=== PATIENT | male | born 1950 | race Caucasian/White ===

== ENCOUNTER 2023-06-05 13:01 | Emergency (ER) | payer MEDICARE, SELFPAY ==
[2023-06-05 13:02] VITALS: BP 165/91; PULSE 96; RESP 18; TEMP 36.3; O2SAT 93
--- NOTE | 2023-06-05 17:00 | EDS_ITS ---
HPI History of Present Illness HPI Narrative: 73-year-old male in February had right hip replacement. Last several weeks he has had intermittent swelling of his left leg. An ultrasound done showed extensive DVT in his left leg. He was referred to the emergency department from the [facility] outpatient primary care office. He denies any chest pain or shortness of breath. He does have chronic intermittent swelling to his left leg so he and family did not make much of it. Denies any fall or trauma. No prior DVT or PE history. Chief Complaint: Lower Extremity Injury Informant: patient, spouse/S.O. and family Occured/Mechanism Mechanism/Context: No injury and No blunt trauma Onset/Context/Timing Onset: Weeks Context: Gradual Onset Timing: Intermittent Current Severity: Mild Maximum Severity: Mild Associated Symptoms Associated Symptoms: Negative for Parasthesia, Weakness or Loss of Funtion Narrative Narrative: 73-year-old male with left leg DVT. Prior similar symptoms: No Recent Illness/Hospitalization: No PFSH PFSH Medical History DVT (deep venous thrombosis) Home Medications apixaban 5 mg (74 tabs) tablets in a dose pack (Eliquis DVT-PE Treat 30D Start) 5 mg PO BID DVT #74 tabs 06/05/23 [Rx Last Taken Unknown] Allergy/AdvReac Type Severity Reaction Status Date / Time No Known Allergies Allergy Verified 06/05/23 13:02 Social History Smoking Status: Never smoker ROS ROS ED ROS Narrative Denies recent illness. Denies chest pain. Denies shortness of breath. Review of Systems ROS Unobtainable: Denies due to encephalopathy Constitutional Constitutional ED: Denies chills or fever(s) Eyes Eyes: Denies blurry vision Cardiovascular Cardiovascular: Denies chest pain Respiratory/Chest Respiratory/Chest: Denies cough Gastrointestinal Gastrointestinal: Denies abdominal pain Genitourinary Genitourinary ED: Denies dysuria or hematuria Musculoskeletal Musculoskeletal: Denies arthralgias Integumentary Denies abscess or Abrasions Neurologic Neurologic: Denies headache(s) Psychiatric Psychiatric: Denies anxiety or depression Endocrine Endocrinology: Denies polydipsia Hematologic/Lymphatic Hematologic/Lymphatic: Denies easy bleeding Allergic/Immunologic Allergic/Immunologic ED: Denies mouth swelling or tongue swelling EXAM Physical Exam Narrative Exam Narrative: Well-appearing 73-year-old male. Vital signs stable afebrile. Pulse ox 93% on room air no hypoxia. H EENT exam unremarkable. Neck nontender. Lungs clear to auscultation bilaterally. Heart regular rhythm rate about 90. Chest wall and ribs nontender. Abdomen soft nontender. Moving all 4 extremities. 1+ pitting edema left lower extremity. Up to about distal thigh. Right leg nontender no edema. Dorsi and plantarflexion intact. Neurologically patient is awake and alert no focal motor deficits. Answering questions following commands. Const Vital Signs: 06/05/23 13:02 Temperature 97.3 F L Temperature Source Temporal Pulse Rate 96 Respiratory Rate 18 Blood Pressure 165/91 H Blood Pressure Mean 115 Pulse Ox 93 Oxygen Delivery Method Room Air Positive well nourished and well developed; Negative for cachectic, contractures or unkempt General Appearance ED: well developed and NAD; Negative for unkempt, cachectic or contractures Nutritional Appearance: Negative for cachectic HEENT Reports moist mucous membranes normocephalic and atraumatic; Negative for trauma or tenderness Eyes PERRL General Eye ED: Negative for other Neck full ROM and supple Thyroid: Negative for tender Lymph Lymphatic: Negative for other Chest Wall inspection of chest normal and palpation of chest normal Chest: Negative for other Resp normal respiratory effort, no retractions and clear to auscultation bilaterally Effort and Inspection: Negative for pain with movement Auscultation: Negative for rales, rhonchi or wheezes Cardio regular rate, regular rhythm, S1 normal heart sound, S2 normal heart sound and no murmurs Rate: Negative for bradycardia or tachycardic Rhythm: Negative for abnormal rhythm Bruits: Negative for other GI non-tender, non-distended and no masses Inspection: Negative for abdominal distention Auscultation: normoactive bowel sounds Palpation: soft; Negative for tender or guarding Back/Spine no CVA tenderness General Back: Negative for CVA tenderness Cervical Spine: Negative for cervical spine tenderness Thoracic Spine / Upper Back: Negative for thoracic spinal tenderness Lumbar Spine / Lower Back: Negative for lumbar spinal tenderness Extremity full ROM; Negative for normal to inspection Extremity Narrative: Left lower extremity deep venous thrombosis with edema. General Extremety ED: Yes edema; Negative for cyanosis General Extremity: edema; Negative for cyanosis Neuro oriented x3, CN's II-XII intact bilaterally and moves all extremities Sensorium / Orientation: alert, oriented to person, oriented to place and oriented to time; Negative for orientation impaired Motor Exam: strength 5/5 throughout Psych mental status grossly normal Appearance: Negative for unkempt Speech: No other Mood & Affect: Negative for anxious Skin Lesions: no lesions Rashes: no rashes Trauma: Negative for abrasion or laceration MDM MDM MDM Narrative Medical decision making narrative: 73-year-old male with an extensive left lower extremity DVT. Restarted on Eliquis. I spoke to his primary care physician Dr. Garcia. Patient had recent labs including a CBC and chemistry and normal kidney function and blood counts per his PCP I am unable to view the results. We have no old labs on our computer. Family is unable to pull it up on [employer]. He will follow-up with his primary care physician. He was instructed on risks of Eliquis and when to return. History & Record Review Discussion w/independent historian: Patient Lab Data Lab results narrative: I spoke to his primary care physician about his recent outpatient labs through the [facility] system. Discharge Plan Triage Chief Complaint: Lower Extremity Injury ED Provider: Terry Bridges Dx/Rx/DC Orders Clinical Impression: Acute deep vein thrombosis (DVT) of left lower extremity Instructions: ED Deep Vein Thrombosis (DVT) Prescriptions: New Eliquis DVT-PE Treat 30D Start 5 mg (74 tabs) tablets,dose pack 5 mg PO BID Qty: 74 0RF Primary Care Provider: Osiel Garcia Referrals: Osiel Garcia MD [Primary Care Provider] - 1-2 Weeks Dillon Wiggins MD [Med Staff - Active Staff] - As soon as possible Activity Restrictions/Additional Instructions: Blood clot in her left leg. He was started on the blood thinner Eliquis. You take a certain way for the first week then that dose changes. After the first week the dose remained constant. Call and follow-up your primary care physician. More than likely you will be on the blood thinner at least 3 months possibly 6 or even longer. If you start having bleeding from your nose, mouth, in your urine or in your stool you need to be reevaluated. Be very careful not to cut yourself because you bleed more easily. If you would hit your head significantly you would need to be evaluated. Disposition Disposition: Home, Self Care
--- OUTSIDE RECORDS SUMMARY | 2023-06-05 17:32 | XMS RPT_ITS | CCD ---
Author Name Unknown Address [address] [place] [address] Organization [facility] Care Team Providers Care Process Control Engineer Name Role Phone Radha WASHINGTON, Alexis Garcia Primary Care Provider Radha WASHINGTON, Alexis Garcia Primary Care Provider Myron Velarde Unavailable Unavailable ANDRESSA MARX Attending Unavailable ANDRESSA MARX Admitting Unavailable MAGALY DOLL Consulting Unavailable ALEXIS GARCIA Primary Care Unavailab ANDRESSA Higgins Attending Unavailable ANDRESSA MARX Referring Unavailable ALEXIS GARCIA Primary Care Unavailab ANDRESSA Higgins Referring Unavailable ALEXIS GARCIA Primary Care Unavailab ALEXIS Bland Primary Care Unavailab ALEXIS Bland Attending Unavailab ALEXIS Bland Primary Care Unavailab ALEXIS Bland Referring Unavailab ANDRESSA Higgins Attending Unavailable ANDRESSA MARX Referring Unavailable ALEXIS GARCIA Primary Care Unavailab ANDRESSA Higgins Referring Unavailable ALEXIS GARCIA Primary Care Unavailab ALEXIS Bland Primary Care Unavailab ALEXIS Bland Referring Unavailab ANDRESSA Higgins Attending Unavailable ALEXIS GARCIA Primary Care Unavailab ALEXIS Bland Referring Unavailab ANDRESSA Higgins Attending Unavailable ANDRESSA MARX Referring Unavailable ALEXIS GARCIA Primary Care Unavailab ANDRESSA Higgins Referring Unavailable ALEXIS GARCIA Primary Care Unavailab ALEXIS Bland Primary Care Unavailab ALEXIS Bland Attending Unavailab YESSENIA Johnston II Attending Unavailabl ALEXIS Torrez Primary Care Unavailab ALEXIS Bland Primary Care Unavailab ALEXIS Bland Attending Unavailab ALEXIS Bland Primary Care Unavailab ALEXIS Bland Referring Unavailab ALEXIS Bland Primary Care Unavailab MARIA LUISA Hutson Referring Unavailable ALEXIS GARCIA Primary Care Unavailab MARIA LUISA Hutson Referring Unavailable ULISESTORUTH, CANDI Referring Unavailable ALEXIS GARCIA Primary Care Unavailab ANDRESSA Higgins Referring Unavailable VETOVITZ, CANDI Attending Unavailable ALEXIS GARCIA Primary Care Unavailab le Allergies Allergy Classification Reported Allergen(s) Allergy Type Date of Onset Reaction(s) Facility (20 sources) Seasonal allergy; Translations: [SEASONAL ALLERGIES] Allergy to substance 02-03-2011 Cough [facility] Work Phone: Medications Current Medications Medication Drug Class(es) Dates Sig (Normalized) Sig (Original) docusate sodium 100 mg oral capsule (3 sources) Start: 02-21-2023 End: 03-23-2023 take 1 capsule by mouth every twelve hours as needed docusate sodium (COLACE) 100 mg capsule Take 1 capsule by mouth two times a day as needed for constipation. 60 capsule 0 02/21/2023 03/23/2023 Active Completed/Discontinued Medications Medication Drug Class(es) Dates Sig (Normalized) Sig (Original) acetaminophen 500 mg oral tablet (7 sources) Start: 02-21-2023 take 2 tablets by mouth every eight hours as needed acetaminophen (TYLENOL) 500 mg tablet Take 2 tablets by mouth every 8 hours as needed for pain. 90 tablet 0 02/21/2023 Active Problems Active Problems Problem Classification Problem Date Documented Date Episodic/Chronic Blindness and vision defects (3 sources) Bilateral hyperopia of eyes; Translations: [Hypermetropia, bilateral] Episodic Cataract (1 source) Nuclear senile cataract; Translations: [Age-related nuclear cataract, bilateral] Chronic Coagulation and hemorrhagic disorders (3 sources) Platelet count below reference range; Translations: [Thrombocytopenia, unspecified] Onset: 04-29-2023 04-29-2023 Chronic Essential hypertension (20 sources) Essential hypertension; Translations: [Essential (primary) hypertension] Onset: 04-29-2023 Chronic Immunizations and screening for infectious disease (2 sources) Patient encounter status; Translations: [Encounter for immunization] Onset: 04-29-2023 12-17-2022 Episodic Osteoarthritis (13 sources) Primary coxarthrosis, bilateral; Translations: [Bilateral primary osteoarthritis of hip] Onset: 02-20-2023 12-17-2022 Chronic Other and unspecified benign neoplasm (1 source) Benign neoplasm of skin of right lower eyelid; Translations: [Other benign neoplasm of skin of right lower eyelid, including canthus] Episodic Other and unspecified benign neoplasm (1 source) Benign neoplasm of skin of left upper eyelid; Translations: [Other benign neoplasm of skin of left upper eyelid, including canthus] Episodic Other connective tissue disease (7 sources) History of total hip arthroplasty; Translations: [Presence of right artificial hip joint] Onset: 02-21-2023 02-21-2023 Chronic Other connective tissue disease (3 sources) Presence of right artificial hip joint; Translations: [S/P total right hip arthroplasty] Onset: 02-21-2023 Chronic Other ear and sense organ disorders (1 source) Tinnitus, right ear; Translations: [Tinnitus of right ear] Onset: 04-29-2023 Episodic Other non-traumatic joint disorders (4 sources) Hip pain; Translations: [Pain in right hip] Episodic Other nutritional; endocrine; and metabolic disorders (16 sources) Obese class I; Translations: [Obesity, unspecified] Chronic Other nutritional; endocrine; and metabolic disorders (9 sources) Severe obesity; Translations: [Morbid (severe) obesity due to excess calories] 02-11-2023 Chronic Other nutritional; endocrine; and metabolic disorders (1 source) Morbid (severe) obesity due to excess calories; Translations: [Class 2 severe obesity due to excess calories with serious comorbidity and body mass index (BMI) of 35.0 to 35.9 in adult (HCC)] Onset: 02-11-2023 Chronic Other nutritional; endocrine; and metabolic disorders (1 source) Body mass index (BMI) 35.0-35.9, adult; Translations: [Class 2 severe obesity due to excess calories with serious comorbidity and body mass index (BMI) of 35.0 to 35.9 in adult (HCC)] Onset: 02-11-2023 Chronic Other nutritional; endocrine; and metabolic disorders (1 source) Obesity, unspecified; Translations: [Obesity (BMI 30.0-34.9)] Onset: 03-22-2020 Chronic Other screening for suspected conditions (not mental disorders or infectious disease) (20 sources) Raised prostate specific antigen; Translations: [Elevated prostate specific antigen [PSA]] Onset: 11-04-2020 Episodic Otitis media and related conditions (1 source) Acute serous otitis media, right ear; Translations: [Non-recurrent acute serous otitis media of right ear] Onset: 04-29-2023 Episodic Past or Other Problems Problem Classification Problem Date Documented Da te Episodic/Chronic Other non-traumatic joint disorders (1 source) Pain in right hip; Translations: [Hip pain, bilateral] Onset: 10-15-2022 Episodic Other non-traumatic joint disorders (1 source) Pain in left hip; Translations: [Hip pain, bilateral] Onset: 10-15-2022 Episodic Results Test Name Value Interpretation Reference Range Facil ity Vital Signs Date Time Vital Sign Value Performing Clinician Faci lity 12-17-2022 08:38-0400 Body weight 105.6 kg Alexis Garcia MD Work Phone: [facility] 12-17-2022 08:38-0400 Diastolic blood pressure 80 mm[Hg] Alexis Garcia MD Work Phone: [facility] 12-17-2022 08:38-0400 Heart rate 82 /min Alexis Garcia MD Work Phone: [facility] 12-17-2022 08:38-0400 Respiratory rate 16 /min Alexis Garcia MD Work Phone: [facility] 12-17-2022 08:38-0400 SaO2% (BldA) [Mass fraction] 93 % Alexis Garcia MD Work Phone: [facility] 12-17-2022 08:38-0400 Systolic blood pressure 136 mm[Hg] Alexis Garcia MD Work Phone: [facility] 10-15-2022 09:20-0400 Diastolic blood pressure 76 mm[Hg] Alexis Garcia MD Work Phone: [facility] 10-15-2022 09:20-0400 Systolic blood pressure 138 mm[Hg] Alexis Garcia MD Work Phone: [facility] 10-15-2022 08:46-0400 Body weight 104.15 kg Alexis Garcia MD Work Phone: [facility] 10-15-2022 08:46-0400 Heart rate 80 /min Alexis Garcia MD Work Phone: [facility] 10-15-2022 08:46-0400 Respiratory rate 16 /min Alexis Garcia MD Work Phone: [facility] 10-15-2022 08:46-0400 SaO2% (BldA) [Mass fraction] 94 % Alexis Garcia MD Work Phone: [facility] 04-09-2022 08:07-0500 Body height 170.2 cm Alexis Garcia MD Work Phone: [facility] 04-09-2022 08:07-0500 Body weight 105.23 kg Alexis Garcia MD Work Phone: [facility] 04-09-2022 08:07-0500 Diastolic blood pressure 76 mm[Hg] Alexis Garcia MD Work Phone: [facility] 04-09-2022 08:07-0500 Heart rate 91 /min Alexis Garcia MD Work Phone: [facility] 04-09-2022 08:07-0500 Respiratory rate 16 /min Alexis Garcia MD Work Phone: [facility] 04-09-2022 08:07-0500 SaO2% (BldA) [Mass fraction] 93 % Alexis Garcia MD Work Phone: [facility] 04-09-2022 08:07-0500 Systolic blood pressure 132 mm[Hg] Alexis Garcia MD Work Phone: [facility] 09-19-2021 18:22-0400 Diastolic blood pressure 68 mm[Hg] Alexis Garcia MD Work Phone: [facility] 09-19-2021 18:22-0400 Systolic blood pressure 118 mm[Hg] Alexis Garcia MD Work Phone: [facility] 09-19-2021 17:51-0400 Body weight 102.88 kg Alexis Garcia MD Work Phone: [facility] 09-19-2021 17:51-0400 Heart rate 89 /min Alexis Garcia MD Work Phone: [facility] 09-19-2021 17:51-0400 Respiratory rate 18 /min Alexis Garcia MD Work Phone: [facility] 09-19-2021 17:51-0400 SaO2% (BldA) [Mass fraction] 96 % Alexis Garcia MD Work Phone: [facility] Encounters Encounter Date Encounter Type Care Provider Facility Start: 05-20-2023 End: 05-20-2023 ambulatory ANDRESSA MARX Facility:[facility] Start: 05-02-2023 Telephone encounter Osiel Garcia MD Work Phone: [facility] Procedures Date Procedure Procedure Detail Performing Clinician Start: 02-11-2023 History of operative procedure on knee History of bilateral knee replacement Andressa Marx MD Work Phone: Start: 02-11-2023 Antibody screen ANDRESSA MARX Plan of Treatment Date Care Activity Detail Author Start: 06-30-2032 Urine microalbumin profile [facility] Start: 10-12-2029 Urine microalbumin profile DTAP,TDAP,TD (4 - Td or Tdap) [facility] Start: 04-09-2027 Lipid 1996 panel - S tatiana or Plasma Lipid Screening [facility] Start: 04-09-2027 Lipid panel Lipid Screening [facility] Start: 04-09-2027 LIPID SCREEN LIPID SCREEN [facility] Start: 04-29-2026 Diabetes Screening Diabetes Screenin [facility] Start: 02-20-2026 Diabetes Screening Diabetes Screenin g [facility] Start: 02-11-2026 Diabetes Screening Diabetes Screenin g [facility] Start: 10-15-2025 DIABETES SCREEN DIABETES SCREEN [facility] Start: 10-15-2025 Diabetes Screening Diabetes Screenin g [facility] Start: 04-09-2025 DIABETES SCREEN DIABETES SCREEN [facility] Start: 10-12-2024 DIABETES SCREEN DIABETES SCREEN [facility] Start: 10-09-2024 LIPID SCREEN LIPID SCREEN [facility] Start: 04-30-2024 Screening for malign ant neoplasm of colon [facility] Start: 04-29-2024 Annual PCP Team Model Dresser prabhu Disease Visit Annual PCP Team Chronic Disease Visit [facility] Start: 04-29-2024 BP Controlled (<130/80) BP Con trolled (<130/80) [facility] Start: 03-25-2024 DIABETES SCREEN DIABETES SCREEN [facility] Start: 02-12-2024 BP Controlled (<130/80) BP Con trolled (<130/80) [facility] Start: 12-18-2023 ANNUAL PCP TEAM BU[employer]LE [employer]AP[employer]ER PRABHU DISEASE VISIT ANNUAL PCP TEAM CHRONIC DISEASE VISIT [facility] Start: 10-16-2023 ANNUAL PCP TEAM BU[employer]ER PRABHU DISEASE VISIT ANNUAL PCP TEAM CHRONIC DISEASE VISIT [facility] Start: 04-22-2023 COLORECTAL CANCER SCREENING COLORECTAL CANCER SCREENING [facility] Start: 04-22-2023 FECAL OCCULT BLOOD FECAL OCCULT BLOO D [facility] Start: 04-22-2023 Screening for malign ant neoplasm of colon [facility] Start: 04-17-2023 End: 06-17-2023 Prostate specific Ag [Mass/volume] in Serum or Plasma PSA/PROSTSPECAG DIAG Lab Routine Elevated PSA Expected: 04/17/2023, Expires: 06/17/2023 [facility] Work Phone: Immunizations Immunization Date Immunization Notes Care Provider Conchis cheng 04-29-2023 COVID-19 vaccine, ag e 12+ yr, season ([employer]) Alexis Garcia MD Work Phone: [facility] 01-24-2023 influenza (HD-IIV4) vaccine, age 65+ yr, high dose, quadrivalent, PF (FLUZONE HIGH-DOSE) Alexis Garcia MD Work Phone: [facility] Work Phone: 01-24-2023 respiratory syncytia l virus (RSV) vaccine, adjuvanted (AREXVY) Alexis Garcia MD Work Phone: [facility] Work Phone: 12-17-2022 COVID-19 vaccine, ag e 12+ yr, bivalent ([employer]) Alexis Garcia MD Work Phone: [facility] 10-20-2022 zoster vaccine recombinant Alexis Garcia MD Work Phone: [facility] Work Phone: 07-07-2022 zoster vaccine recombinant Alexis Garcia MD Work Phone: [facility] Work Phone: 06-30-2022 tetanus toxoid, redu milvia diphtheria toxoid, and acellular pertussis vaccine, adsorbed Alexis Garcia MD Work Phone: [facility] Work Phone: 02-03-2022 influenza (HD-IIV4) vaccine, age 65+ yr, high dose, quadrivalent, PF (FLUZONE HIGH-DOSE) Alexis Garcia MD Work Phone: [facility] Work Phone: 02-03-2022 influenza virus vaccine, unspecified formulation Andressa Marx MD Work Phone: [facility] 02-04-2021 influenza (HD-IIV4) vaccine, age 65+ yr, high dose, quadrivalent, PF (FLUZONE HIGH-DOSE) Alexis Garcia MD Work Phone: [facility] Work Phone: 09-21-2020 pneumococcal polysaccharide vaccine, 23 valent Alexis Garcia MD Work Phone: [facility] 09-03-2020 COVID-19 vaccine, fu ll dose (MODERNA) Alexis Garcia MD Work Phone: [facility] 08-06-2020 COVID-19 vaccine, fu ll dose (MODERNA) Alexis Garcia MD Work Phone: [facility] 01-30-2020 influenza, high-dose , quadrivalent vaccine (FLUZONE HIGH DOSE QUADRIVALENT) Alexis Garcia MD Work Phone: [facility] 10-13-2019 tetanus toxoid, redu milvia diphtheria toxoid, and acellular pertussis vaccine, adsorbed Alexis Garcia MD Work Phone: [facility] 04-18-2019 influenza, high dose seasonal, preservative-free Alexis Garcia MD Work Phone: [facility] 04-18-2019 pneumococcal conjuga te vaccine, 13 valent Alexis Garcia MD Work Phone: [facility] 03-09-2009 novel [id number], preservative-free, injectable Alexis Garcia MD Work Phone: [facility] 02-07-2009 tetanus toxoid, redu milvia diphtheria toxoid, and acellular pertussis vaccine, adsorbed Alexis Garcia MD Work Phone: [facility] 10-11-2000 diphtheria and tetan us toxoids, adsorbed for pediatric use Alexis Garcia MD Work Phone: [facility] Work Phone: Payers Date Payer Category Payer Medicare [id number] 2022 Unknown [id number] 2021 Unknown [facility] S AND BLUE [facility] ZACK ISBELL O [id number] 2021-Present [phone] [address] [place] [address] [facility] [id number] 2021 Unknown [id number] 2021 Unknown [id number] Social History Date Type Detail Facility Start: 04-09-2022 Tobacco smoking stat [facility] Never smoked tobacco [facility] Start: 09-19-2021 End: 04-29-2023 Alcohol intake Current drinker of alcohol (finding) [facility] Start: 03-22-2020 History SDOH Alcohol Frequency 3 [facility] Start: 03-22-2020 History SDOH Alcohol Std Drinks 1 [facility] Start: 1950 Sex Assigned At Not on file [facility] Start: 04-09-2022 Tobacco use and exposure Smokeless tobacco non-user [facility] Start: 03-30-2022 End: 04-09-2022 Exposure to SARS-CoV-2 (event) Not sure [facility] Start: 10-15-2022 End: 04-29-2023 History of Social function [facility] Work Phone: Start: 10-15-2022 End: 04-29-2023 Tobacco use panel [facility] Work Phone: Adult Depression Screening Assessment 0 [facility] Work Phone: How often to you hav e a drink containing alcohol? 2-4 times a month [facility] Work Phone: How many standard drinks containing alcohol do you have on a typical day? 1 or 2 [facility] Work Phone: How often do you hav e 6 or more drinks on 1 occasion? Never [facility] Work Phone: Medical Equipment Procedure Code Equipment Code Equipment Origin al Text Equipment Identifier Dates Insert Acetabula r 36mm 0d F Hip X3 Trident - [id number] Start: 02-20-2023 Screw Trident Ii 6.5mm 30mm Bone Low Profile Hexagonal Sterile - [id number] Start: 02-20-2023 Clinical Notes 09-19-2021 to 05-20-2023 Telephone Encounter - Ana East LPN - 05/02/2023 11:40 AM ESTTelephone Encounter - Ana East LPN - 05/02/2023 11:38 AM Candi Fregoso PA-C - 04/01/2023 12:39 PM EST Note Date & Type Note Facility 05-20-2023 Note HNO ID: [id number] Author: ANDRESSA MARX MD Service: ? Author Type: Physician Type: Progress Notes Filed: 05/27/2023 13:30 Note Text: Andressa Marx MD Department of Orthopaedics [facility] [address] [place] [address] Dept: [phone] Dept May 20, 2023 CHIEF COMPLAINT: Post Op of the Right Hip and 12 weeks 5 days post op Right GUSTAVO. HPI Patient here for post op visit Right GUSTAVO. Patient denies any pain in that hip but states his left hip has been going out on him and gotten worse since his surgery. Taking Tylenol or Lodine for the pain and helps take the edge off. Patient using a cane to ambulate when outside the house. Continuing home exercises. Patient does have an appointment today after his visit here with the dentist. Has been having pain in one of his bottom right side. He had an antibiotic to take and took it last night. He took 2 tablets yesterday morning and 2 tablets last night. Was told he would only be getting x-rays done and then make a plan to take care of that tooth. with patient today. X-rays done today. ASSESSMENT: Z96.641 History of right hip replacement (primary encounter diagnosis) SUMMARY/PLAN: Doing really great on the right side and is very pleased. The left hip is worsening just with time and as he recovers from the right. We reviewed the risks, benefits, alternatives and potential complications again for now the left hip. He wishes to schedule surgery for the left. Exam: Right hip with healed incision. Good range of motion. Left hip with worsening motion, pain with any attempt at flexion beyond 90 and internal of 10. Imaging: IMPRESSION: Right hip total arthroplasty without evidence of hardware complication. Severe left hip osteoarthritis. Bony demineralization.. Stoker Installer: PSCB Transcribe Date/Time: May 23 2023 9:42A Dictated by : CONSUELO PATRICIO MD This examination was interpreted and the report reviewed and electronically signed by: CONSUELO PATRICIO MD on May 23 2023 9:47AM EST Results-Findings * * *Final Report* * * DATE OF EXAM: May 20 2023 1:16PM [id number] - XR HIP 3V PELV+ AP/LAT RT / PROCEDURE REASON: multiple diagnoses * * * * Physician Interpretation * * * * EXAM(s): XR HIP 3V PELV+ AP/LAT RT EXAM DATE/TIME: 05/20/2023 1:16 PM HISTORY: 73 years old Clinical information: Primary osteoarthritis of right hip Status post total replacement of right hip Follow up after right hip replacement TECHNIQUE: Images: XR HIP 3V PELV+ AP/LAT RT Comparison: Right hip radiograph 03/04/2023 RESULT: Findings: Bony demineralization. No fractures or dislocations are seen. Right hip total arthroplasty with well-seated components. No evidence of hardware complication. Severe left hip osteoarthritis. Low lumbar spondylosis. Supporting Information Below: Medications: Current Outpatient Medications Medication Sig lisinopril (ZESTRIL) 40 mg tablet Take 1 tablet by mouth once daily. hydroCHLOROthiazide 12.5 mg capsule Take 1 capsule by mouth once daily. amoxicillin (AMOXIL) 500 mg capsule 4 capsules 1 hours prior to dental procedure. etodolac (LODINE) 400 mg tablet Take 1 tablet by mouth two times a day. acetaminophen (TYLENOL) 500 mg tablet Take 2 tablets by mouth every 8 hours as needed for pain. HYDROcodone-acetaminophen (NORCO) 5-325 mg per tablet Take 1 tablet by mouth every 6 hours as needed for pain. (Patient not taking: Reported on 04/01/2023) ascorbic acid, vitamin C, (VITAMIN C) 500 mg tablet Take 1 tablet by mouth two times a day with meals for 27 doses. (Patient not taking: Reported on 05/20/2023) aspirin, enteric coated (ASPIRIN, ENTERIC COATED) 81 mg EC tablet Take 1 tablet by mouth two times a day for 28 days. multivit-min/folic/vit K/lycop (MEN'S MULTIVITAMIN ORAL) Take by mouth. (Patient not taking: Reported on 03/04/2023) No current facility-administered medications for this visit. Allergies: Seasonal Allergies Andressa Marx MD [facility] 05-20-2023 Note HNO ID: [id number] Author: KANDY ORANTES RT(R) Service: ? Author Type: Check Writer Type: Progress Notes Filed: 05/20/2023 13:15 Note Text: Radiology Service Progress Note PATIENT NAME: Juan Andrews DATE OF SERVICE: May 20, 2023 TIME: 1:15 PM PATIENT IDENTITY VERIFICATION COMPLETED USING TWO (2) IDENTIFIERS: Name and Date of confirmed by patient verbally. FALL SCREENING: Has the patient had 2 falls in the last year or 1 fall with injury or currently using an Ambulatory Assistive Device (Walker, Cane, Wheelchair, Crutches, etc.)? Yes, Patient High Risk for Falls What interventions were put in place to prevent falls during this visit? Instructed Patient to Call for Help if Needed, Offered Assistance with Transfers/Clothing, Instructed Patient to Remain Seated (Not on Exam Table) Until Exam, and Increased Observations by Caregivers PATIENT GENDER DATA: Male PATIENT RELEVANT IMPLANT DATA REVIEWED: Yes RADIOLOGY DEPARTMENT: General X-ray: Exam(s) Completed: Pelvis X-Ray: Pelvis with Hip Right PERIPHERAL IV DATA: Not applicable SIGNED BY: Kandy Orantes RT(R) May 20, 2023 1:15 PM [facility] 05-02-2023 Miscellaneous Notes Patient notified. Verbalized understanding. ----- Message from Alexis Garcia MD sent at 05/02/2023 11:12 AM EST ----- FOBT negative for blood in stool. Recheck in 1 year to screen for colon cancer. documented in this encounter [facility] 04-30-2023 Miscellaneous Notes Phoned patient's and reviewed results and recommendations with her. She voiced understanding. ----- Message from Alexis Garcia MD sent at 04/30/2023 8:15 AM EST ----- Labs are normal. PSA improved from last check 6 months ago and is now less than 4. Will continue to monitor. No changes to regimen. documented in this encounter [facility] 04-29-2023 Note HNO ID: [id number] Author: Alexis Garcia MD Service: ? Author Type: Physician Type: Progress Notes Filed: 04/29/2023 9:38 AM Note Text: Chief Complaint Patient presents with: Follow Up HPI Juan Andrews is a 73 year old male who presents here today for Above Complaints. HTN: Mr. Andrews indicates that he is feeling well and denies any symptoms referable to elevated blood pressure. Specifically denies headache, chest pain, palpitations, dyspnea, and peripheral edema. Patient denies any side effects of his medication(s) and is compliant with their regimen. He does check BP's away from this office with average BP's in the 120's/70's range. Juan likes to exercise by walking daily. He watches his diet for sodium, low fat and low cholesterol most of the time. Last 3 Encounter BP Readings: Date: BP: 04/29/2023 124/76 02/20/2023 85/56 02/11/2023 112/76 S/p right total hip in February. Healing well without pain. Done with PT. Still using cane for ambulation due to pain in left hip. Would like ears checked today. Complaining of ringing in his right ear for about 5-6 months. Denies vertigo or hearing loss. Past medical history, appointments, medications, allergies reviewed. Previous Medical History PAST MEDICAL HISTORY Diagnosis Date Elevated prostate specific antigen (PSA) 11/04/2020 Hypertension Obesity (BMI 30.0-34.9) Osteoarthritis, hip, bilateral S/P total hip arthroplasty Right Previous Surgical History PAST SURGICAL HISTORY Procedure Laterality Date ADENOIDECTOMY PRIMARY Adenoidectomy ARTHRP KNE CONDYLEANDPLATU MEDIALANDLAT COMPARTMENTS 04/15/2006 Knee replacement, total bilateral ARTHRP KNE CONDYLEANDPLATU MEDIALANDLAT COMPARTMENTS Right 2016 REPAIR UMBILICAL HERNIA 2005 repeat RPR UMBILICAL HRNA 5 YRS/> REDUCIBLE 1999 Hernia repair, umbilical >5yr TONSILLECTOMY PRIMARY/SECONDARY Tonsillectomy TOTAL HIP REPLACEMENT Right 2022 Family History FAMILY HISTORY Problem Relation Age of Onset Diabetes Mother Arthritis Sister knee relacements Arthritis Sister knee replacements Arthritis Sister knee replacements Arthritis Brother hip replacement Hypertension Brother Peripheral Artery Disease Brother No Known Problems Son No Known Problems Son Glaucoma No Family History Detached Retina No Family History Macular Degen No Family History Blindness No Family History Patient Allergies ALLERGIES Allergen Reactions Seasonal Allergies Cough Current Medications Current Outpatient Medications on File Prior to Visit Medication Sig amoxicillin (AMOXIL) 500 mg capsule 4 capsules 1 hours prior to dental procedure. etodolac (LODINE) 400 mg tablet Take 1 tablet by mouth two times a day. acetaminophen (TYLENOL) 500 mg tablet Take 2 tablets by mouth every 8 hours as needed for pain. HYDROcodone-acetaminophen (NORCO) 5-325 mg per tablet Take 1 tablet by mouth every 6 hours as needed for pain. (Patient not taking: Reported on 04/01/2023) ascorbic acid, vitamin C, (VITAMIN C) 500 mg tablet Take 1 tablet by mouth two times a day with meals for 27 doses. aspirin, enteric coated (ASPIRIN, ENTERIC COATED) 81 mg EC tablet Take 1 tablet by mouth two times a day for 28 days. multivit-min/folic/vit K/lycop (MEN'S MULTIVITAMIN ORAL) Take by mouth. (Patient not taking: Reported on 03/04/2023) lisinopril (ZESTRIL) 40 mg tablet Take 1 tablet by mouth once daily. hydroCHLOROthiazide 12.5 mg capsule Take 1 capsule by mouth once daily. No current facility-administered medications on file prior to visit. Social History Social History Tobacco Use Smoking status: Never Smokeless tobacco: Never Vaping Use Vaping Use: Never used Substance Use Topics Alcohol use: Yes Comment: beer weekends 1 to 2 Drug use: Never Review of Symptoms REVIEW OF SYSTEMS GENERAL: No weight loss, malaise or fevers RESPIRATORY: Negative for cough, hemoptysis, wheezing, COPD, dyspnea or shortness of breath CARDIOVASCULAR: Negative for chest pain, leg swelling, hypertension, CHF or palpitations GI: No nausea, vomiting, or diarrhea : No history of dysuria, frequency or incontinence, No difficulty urinating, nocturia > 1 time per night or hematuria SKIN: Negative for lesions, rash, and itching EXAM: BP 124/76 Pulse 82 Resp 16 Wt 108 kg (238 lb) SpO2 94% BMI 36.07 kg/m? General Appearance: Well appearing, alert, in no acute distress, well-hydrated, well nourished.. Skin: Skin color, texture, turgor normal, no suspicious rashes or lesions. Ears: External ears normal, canals clear. Serous effusion noted on right. Left TM normal. Lungs: Lungs clear to auscultation. No wheezing, rhonchi, rales.. Heart: RRR without murmur, gallop, or rubs. No ectopy. Abdomen: Normal abdominal exam, Abdomen soft, non-tender. Bowel sounds normal. No masses, organomegaly. Extremities: No deformities, edema, skin discoloration, clubbing or (more content not included)... [facility] 04-01-2023 Note HNO ID: [id number] Author: Candi Hernandez PA-C Service: ? Author Type: Physician Field Court Researcher Type: Progress Notes Filed: 04/01/2023 12:42 PM Note Text: Ortho Hip Follow Up Note Narrative Referring Provider: Andressa Marx [address] [facility] [address] PCP: Alexis Garcia MD IMPRESSION/PLAN: Impressions indicate: 73 year old s/p Right Total Hip Replacement completed on 02/20/2023. He is doing very well from a right hip standpoint, denies any right hip pain though reports he still is a bit of soreness . The left hip is causing him much more pain now, he is having difficulty ambulating and has had a few incidences where it felt like the left hip gave out . He is very eager to schedule surgery for the left hip. Recent Surgeries this specialty 02/20/2023 (5w, 5d) ARTHROPLASTY REPLACE JOINT TOTAL HIP (Right) Andressa Marx MD - Posted PAIN EVALUATION 04/01/2023 1028 Pain Location: Hip-Right Description: Dull;Aching Duration Amount of Time: -- Post op Frequency: Intermittent Intervention/Comfort measure: Medication IMPRESSION: No complaints or limitations. PLAN: Continue current conservative treatment. Patient Reassurance: Patient reassured and supported. All questions answered. Follow up 1 month, No X-Rays Needed ACTIVE PROBLEM LIST Hypertension Class 2 severe obesity due to excess calories with serious comorbidity and body mass index (BMI) of 35.0 to 35.9 in adult Elevated Prostate Specific Antigen (Psa) History of Bilateral Knee Replacement S/P Total Right Hip Arthroplasty HPI: Juan Andrews presents today for a routine 1st post-op visit. STATUS POST: BMI: There is no height or weight on file to calculate BMI. Post operative recovery was complicated by uneventful/none. Readmission(s) since surgery (90 days post)? No ED Visits AND Hospitalizations - Last 180 days 02/20/23 Andressa Marx MD, ME2E S/P total right hip arthroplasty ..., Admission (Discharged) Patient rates their condition as improving. Does the patient still experience pain? No. Post Op discharge patient location: in home. Functional Assessment is as follows: completed home PT. Functional difficulties: None. Pain Medication: None Current Opioids Analgesic Opioid Hydrocodone Combinations Start End HYDROcodone-acetaminophen (NORCO) 5-325 mg per tablet 03/04/2023 -- Sig - Route: Take 1 tablet by mouth every 6 hours as needed for pain. - ORAL Patient not taking: Reported on 04/01/2023 Earliest Fill Date: 03/04/2023 Analgesic Opioid Hydrocodone and Non-Salicylate Combinations Start End HYDROcodone-acetaminophen (NORCO) 5-325 mg per tablet 03/04/2023 -- Sig - Route: Take 1 tablet by mouth every 6 hours as needed for pain. - ORAL Patient not taking: Reported on 04/01/2023 Earliest Fill Date: 03/04/2023 EXAM: POST OP HIP RIGHT POST-OPERATIVE HIP SKIN: Appropriate postop appearance. Range of Motion: Pain Free Neurovascular Status: Sensation Intact, Moves foot and ankle up AND down, and 2+ dorsalis pedis Gait: Antalgic to the left HIP EXAM: Right: ROM: Extension: Normal Flexion: 110 degrees Internal Rotation: 30 degrees External Rotation: 30 degrees Abduction: 30 degrees Adduction: 30 degrees Strength: Abduction 5/5 and Flexion 5/5 Palpation: No tenderness Neurovascular Status: Sensation Intact and Moves foot and ankle up AND down IMAGING: X-ray Hips: Post op Implants are well fixed. Provider: Candi Hernandez PA-C Completed by: Candi Hernandez PA-C [facility] 04-01-2023 History of Present illness Narrative Images from the original note were not included. Ortho Hip Follow Up Note Narrative Referring Provider: Andressa Marx [address] [facility] [address] PCP: Alexis Garcia MD IMPRESSION/PLAN: Impressions indicate: 73 year old s/p Right Total Hip Replacement completed on 02/20/2023. He is doing very well from a right hip standpoint, denies any right hip pain though reports he still is a bit of soreness . The left hip is causing him much more pain now, he is having difficulty ambulating and has had a few incidences where it felt like the left hip gave out . He is very eager to schedule surgery for the left hip. Recent Surgeries this specialty 02/20/2023 (5w, 5d) ARTHROPLASTY REPLACE JOINT TOTAL HIP (Right) Andressa Marx MD - Posted PAIN EVALUATION 04/01/2023 1028 Pain Location: Hip-Right Description: Dull;Aching Duration Amount of Time: -- Post op Frequency: Intermittent Intervention/Comfort measure: Medication IMPRESSION: No complaints or limitations. PLAN: Continue current conservative treatment. Patient Reassurance: Patient reassured and supported. All questions answered. Follow up 1 month, No X-Rays Needed ACTIVE PROBLEM LIST Hypertension Class 2 severe obesity due to excess calories with serious comorbidity and body mass index (BMI) of 35.0 to 35.9 in adult Elevated Prostate Specific Antigen (Psa) History of Bilateral Knee Replacement S/P Total Right Hip Arthroplasty HPI: Juan Andrews presents today for a routine 1st post-op visit. STATUS POST: BMI: There is no height or weight on file to calculate BMI. Post operative recovery was complicated by uneventful/none. Readmission(s) since surgery (90 days post)? No ED Visits & Hospitalizations - Last 180 days 02/20/23 Andressa Marx MD, ME2E S/P total right hip arthroplasty ..., Admission (Discharged) Patient rates their condition as improving. Does the patient still experience pain? No. Post Op discharge patient location: in home. Functional Assessment is as follows: completed home PT. Functional difficulties: None. Pain Medication: None Current Opioids Analgesic Opioid Hydrocodone Combinations Start End HYDROcodone-acetaminophen (NORCO) 5-325 mg per tablet 03/04/2023 -- Sig - Route: Take 1 tablet by mouth every 6 hours as needed for pain. - ORAL Patient not taking: Reported on 04/01/2023 Earliest Fill Date: 03/04/2023 Analgesic Opioid Hydrocodone and Non-Salicylate Combinations Start End HYDROcodone-acetaminophen (NORCO) 5-325 mg per tablet 03/04/2023 -- Sig - Route: Take 1 tablet by mouth every 6 hours as needed for pain. - ORAL Patient not taking: Reported on 04/01/2023 Earliest Fill Date: 03/04/2023 EXAM: POST OP HIP RIGHT POST-OPERATIVE HIP SKIN: Appropriate postop appearance. Range of Motion: Pain Free Neurovascular Status: Sensation Intact, Moves foot and ankle up & down, and 2+ dorsalis pedis Gait: Antalgic to the left HIP EXAM: Right: ROM: Extension: Normal Flexion: 110 degrees Internal Rotation: 30 degrees External Rotation: 30 degrees Abduction: 30 degrees Adduction: 30 degrees Strength: Abduction 5/5 and Flexion 5/5 Palpation: No tenderness Neurovascular Status: Sensation Intact and Moves foot and ankle up & down IMAGING: X-ray Hips: Post op Implants are well fixed. Provider: Candi Hernandez PA-C Completed by: Candi Hernandez PA-C Patient presents with: Right Hip - Post Op 5 weeks 5 days post op Right GUSTAVO AMB ROOMING INTAKE FLOWSHEET DATA Pain Pain Location: Hip-Right Description: Dull, Aching Duration Amount of Time: (Post op) Frequency: Intermittent Intervention/Comfort measure: Medication Patient using a cane to ambulate at home and walker outside the house. He is having more pain with his left hip than his surgical hip. Taking Tylenol for the pain. Continuing home exercises. with patient today. New X-rays done today. documented in this encounter [facility] 04-01-2023 Note HNO ID: [id number] Author: Stephanie Deleon Ma Service: ? Author Type: ? Type: Progress Notes Filed: 04/01/2023 12:42 PM Note Text: Patient presents with: Right Hip - Post Op 5 weeks 5 days post op Right GUSTAVO AMB ROOMING INTAKE FLOWSHEET DATA Pain Pain Location: Hip-Right Description: Dull, Aching Duration Amount of Time: (Post op) Frequency: Intermittent Intervention/Comfort measure: Medication Patient using a cane to ambulate at home and walker outside the house. He is having more pain with his left hip than his surgical hip. Taking Tylenol for the pain. Continuing home exercises. with patient today. New X-rays done today. [facility] 04-01-2023 Note HNO ID: [id number] Author: Letitia Sesay RT(R) Service: Radiology Author Type: Technologist Type: Progress Notes Filed: 04/01/2023 10:25 AM Note Text: Radiology Service Progress Note PATIENT NAME: Juan Andrews DATE OF SERVICE: April 01, 2023 TIME: 10:08 AM PATIENT IDENTITY VERIFICATION COMPLETED USING TWO (2) IDENTIFIERS: Name and Date of confirmed by patient verbally. FALL SCREENING: Has the patient had 2 falls in the last year or 1 fall with injury or currently using an Ambulatory Assistive Device (Walker, Cane, Wheelchair, Crutches, etc.)? No PATIENT GENDER DATA: Male PATIENT RELEVANT IMPLANT DATA REVIEWED: Yes RADIOLOGY DEPARTMENT: General X-ray: Exam(s) Completed: Pelvis X-Ray: Pelvis with Hip Right PERIPHERAL IV DATA: Not applicable SIGNED BY: RT Hoa(R) April 01, 2023 10:08 AM [facility] 03-04-2023 Note HNO ID: [id number] Author: Candi Hernandez PA-C Service: ? Author Type: Physician Field Court Researcher Type: Progress Notes Filed: 03/04/2023 2:05 PM Note Text: Ortho Hip Follow Up Note Narrative Referring Provider: Andressa Marx [address] [facility] [address] PCP: Alexis Garcia MD IMPRESSION/PLAN: Impressions indicate: 72 year old s/p Right Total Hip Replacement completed on 02/20/2023. He is doing very well, complains of only some minimal pain. Had a little bit of the difficulty with insurance coverage for home PT and home health, fortunately he has a friend who works as a physical therapist who was able to come to his home and assist him. Recent Surgeries this specialty 02/20/2023 (1w, 5d) ARTHROPLASTY REPLACE JOINT TOTAL HIP (Right) Andressa Marx MD - Posted PAIN EVALUATION 03/04/2023 1307 Pain Level: 1 Pain Location: Hip-Right IMPRESSION: At normal post-operative stage of recovery. PLAN: Rest, Ice, Compression, Elevation PRN. Patient Reassurance: Normal post-operative course discussed with patient. Progress appears to be with the normal speed of recovery. Patient reassured and supported. All questions answered. Follow up 1 month X-Rays Needed ACTIVE PROBLEM LIST Hypertension Class 2 severe obesity due to excess calories with serious comorbidity and body mass index (BMI) of 35.0 to 35.9 in adult Elevated Prostate Specific Antigen (Psa) History of Bilateral Knee Replacement S/P Total Right Hip Arthroplasty HPI: Juan Andrews presents today for a routine 1st post-op visit. STATUS POST: BMI: There is no height or weight on file to calculate BMI. Post operative recovery was complicated by uneventful/none. Readmission(s) since surgery (90 days post)? No ED Visits AND Hospitalizations - Last 180 days 02/20/23 Andressa Marx MD, ME2E S/P total right hip arthroplasty ..., Admission (Discharged) Patient rates their condition as improving. Does the patient still experience pain? Onset: activity. Location: Right hip: Other: lateral . Frequency: intermittently. Pain scale: 1. Pain character: ache. Relieving factors: Rest and Pain medication. Aggravating factors: Prolonged standing, Prolonged sitting, Arising from chair, and Walking long distances. Post Op discharge patient location: in home. Functional Assessment is as follows: not started home PT. Functional difficulties: Walking. Pain Medication: Narcotic Current Opioids Analgesic Opioid Hydrocodone Combinations Start End HYDROcodone-acetaminophen (NORCO) 5-325 mg per tablet 03/04/2023 -- Sig - Route: Take 1 tablet by mouth every 6 hours as needed for pain. - ORAL Earliest Fill Date: 03/04/2023 Analgesic Opioid Hydrocodone and Non-Salicylate Combinations Start End HYDROcodone-acetaminophen (NORCO) 5-325 mg per tablet 03/04/2023 -- Sig - Route: Take 1 tablet by mouth every 6 hours as needed for pain. - ORAL Earliest Fill Date: 03/04/2023 EXAM: POST OP HIP RIGHT POST-OPERATIVE HIP SKIN: Appropriate postop appearance, No evidence of erythema, warmth, discharge or drainage, and No evidence of warmth or erythema. Range of Motion: Pain Free Neurovascular Status: Sensation Intact, Moves foot and ankle up AND down, and 2+ dorsalis pedis Gait: Ambulatory Aid: a walker HIP EXAM: Painless passive range of motion in the right hip. IMAGING: X-ray Hips: Post op Implants are well fixed. Provider: Candi Hernandez PA-C Completed by: Candi Hernandez PA-C [facility] 03-04-2023 Note HNO ID: [id number] Author: Kandy Orantes RT(R) Service: ? Author Type: Check Writer Type: Progress Notes Filed: 03/04/2023 1:05 PM Note Text: Radiology Service Progress Note PATIENT NAME: Juan Andrews DATE OF SERVICE: March 04, 2023 TIME: 12:45 PM PATIENT IDENTITY VERIFICATION COMPLETED USING TWO (2) IDENTIFIERS: Name and Date of confirmed by patient verbally. FALL SCREENING: Has the patient had 2 falls in the last year or 1 fall with injury or currently using an Ambulatory Assistive Device (Walker, Cane, Wheelchair, Crutches, etc.)? No PATIENT GENDER DATA: Male PATIENT RELEVANT IMPLANT DATA REVIEWED: Yes RADIOLOGY DEPARTMENT: General X-ray: Exam(s) Completed: Pelvis X-Ray: Pelvis with Hip Right PERIPHERAL IV DATA: Not applicable SIGNED BY: RT Lauren(R) March 04, 2023 12:45 PM [facility] 03-04-2023 History of Present illness Narrative Images from the original note were not included. Ortho Hip Follow Up Note Narrative Referring Provider: Andressa Marx [address] [facility] [address] PCP: Alexis Garcia MD IMPRESSION/PLAN: Impressions indicate: 72 year old s/p Right Total Hip Replacement completed on 02/20/2023. He is doing very well, complains of only some minimal pain. Had a little bit of the difficulty with insurance coverage for home PT and home health, fortunately he has a friend who works as a physical therapist who was able to come to his home and assist him. Recent Surgeries this specialty 02/20/2023 (1w, 5d) ARTHROPLASTY REPLACE JOINT TOTAL HIP (Right) Andressa Marx MD - Posted PAIN EVALUATION 03/04/2023 1307 Pain Level: 1 Pain Location: Hip-Right IMPRESSION: At normal post-operative stage of recovery. PLAN: Rest, Ice, Compression, Elevation PRN. Patient Reassurance: Normal post-operative course discussed with patient. Progress appears to be with the normal speed of recovery. Patient reassured and supported. All questions answered. Follow up 1 month X-Rays Needed ACTIVE PROBLEM LIST Hypertension Class 2 severe obesity due to excess calories with serious comorbidity and body mass index (BMI) of 35.0 to 35.9 in adult Elevated Prostate Specific Antigen (Psa) History of Bilateral Knee Replacement S/P Total Right Hip Arthroplasty HPI: Juan Andrews presents today for a routine 1st post-op visit. STATUS POST: BMI: There is no height or weight on file to calculate BMI. Post operative recovery was complicated by uneventful/none. Readmission(s) since surgery (90 days post)? No ED Visits & Hospitalizations - Last 180 days 02/20/23 Andressa Marx MD, ME2E S/P total right hip arthroplasty ..., Admission (Discharged) Patient rates their condition as improving. Does the patient still experience pain? Onset: activity. Location: Right hip: Other: lateral . Frequency: intermittently. Pain scale: 1. Pain character: ache. Relieving factors: Rest and Pain medication. Aggravating factors: Prolonged standing, Prolonged sitting, Arising from chair, and Walking long distances. Post Op discharge patient location: in home. Functional Assessment is as follows: not started home PT. Functional difficulties: Walking. Pain Medication: Narcotic Current Opioids Analgesic Opioid Hydrocodone Combinations Start End HYDROcodone-acetaminophen (NORCO) 5-325 mg per tablet 03/04/2023 -- Sig - Route: Take 1 tablet by mouth every 6 hours as needed for pain. - ORAL Earliest Fill Date: 03/04/2023 Analgesic Opioid Hydrocodone and Non-Salicylate Combinations Start End HYDROcodone-acetaminophen (NORCO) 5-325 mg per tablet 03/04/2023 -- Sig - Route: Take 1 tablet by mouth every 6 hours as needed for pain. - ORAL Earliest Fill Date: 03/04/2023 EXAM: POST OP HIP RIGHT POST-OPERATIVE HIP SKIN: Appropriate postop appearance, No evidence of erythema, warmth, discharge or drainage, and No evidence of warmth or erythema. Range of Motion: Pain Free Neurovascular Status: Sensation Intact, Moves foot and ankle up & down, and 2+ dorsalis pedis Gait: Ambulatory Aid: a walker HIP EXAM: Painless passive range of motion in the right hip. IMAGING: X-ray Hips: Post op Implants are well fixed. Provider: Candi Hernandez PA-C Completed by: Candi Hernandez PA-C documented in this encounter [facility] 02-23-2023 Note HNO ID: [id number] Author: Note, Interface Service: ? Author Type: ? Type: Progress Notes Filed: 02/23/2023 3:04 AM Note Text: Epic Scheduled Downtime: 02/23/2023 1:00:00 AM to 02/23/2023 1:28:00 AM [facility] 02-21-2023 Note HNO ID: [id number] Author: Magaly Doll MD Service: General Internal Medicine Author Type: Physician Type: Progress Notes Filed: 02/21/2023 10:00 AM Note Text: INPATIENT CONSULT PROGRESS NOTES Patient Name: Juan Andrews DATE of SERVICE: 02/21/23 TIME of SERVICE: 7:20 CONSULTING SERVICE: Medicine Plan of care discussed with: Provider, RN, Patient. INTERVAL HPI: Uneventful night, pain is fairly controlled. Patient seen and examined: Discussed with RN. Vitals/Meds/Labs/U/O reviewed Alert AND Oriented NO nausea, vomiting NO light headedness, NO shortness of breathe Dry oral mucosa CVS - RRR Lungs - Clear to auscultation Abdomen - soft, Nontender, normal bowel sounds LLE - Ankle No edema RLE - Ankle No edema MEDICATIONS: Current Facility-Administered Medications Medication Dose Route Frequency scopolamine - VERIFY patch OTHER q 8 H scopolamine - REMOVE PATCH OTHER ONCE lisinopril 40 mg tab(s) (ZESTRIL) 40 mg ORAL DAILY hydroCHLOROthiazide 12.5 mg tab(s) 12.5 mg ORAL DAILY ondansetron orally disintegrating 4 mg tab(s) (ZOFRAN ODT) 4 mg ORAL q 6 H PRN Or ondansetron (PF) 4 mg injection (ZOFRAN) 4 mg INTRAVENOUS q 6 H PRN magnesium hydroxide 400 mg/5 mL 30 mL (MOM) 30 mL ORAL DAILY PRN [START ON 02/22/2023] bisacodyl EC 10 mg tab(s) (DULCOLAX) 10 mg ORAL DAILY aluminum-magnesium hydroxide-simethicone 200-200-20 mg/5 mL 30 mL 30 mL ORAL q 2 H PRN ferrous sulfate 325 mg tab(s) 325 mg ORAL DAILY wLUNCH ascorbic acid (vitamin C) 500 mg tab(s) (VITAMIN C) 500 mg ORAL BID w MEALS senna 17.2 mg tab(s) (SENOKOT) 17.2 mg ORAL AT BEDTIME aspirin, enteric coated 81 mg tab(s) 81 mg ORAL BID traMADol 50 mg tab(s) (ULTRAM) 50 mg ORAL q 6 H PRN oxyCODONE IR 5-10 mg tab(s) (ROXICODONE) 5-10 mg ORAL q 3 H PRN morphine 2 mg injection 2 mg INTRAVENOUS q 2 H PRN acetaminophen 1,000 mg tab(s) (TYLENOL) 1,000 mg ORAL q 8 H keTORolac 15 mg injection (Toradol) 15 mg INTRAVENOUS q 6 H lactated ringers iv infusion 75 mL/hr INTRAVENOUS CONTINUOUS PHYSICAL EXAM: Patient Vitals for the past 24 hrs: BP Temp Temp src Pulse Resp SpO2 Height Weight 02/21/23 0915 117/67 -- -- -- -- -- -- -- 02/21/23 0858 98/69 -- -- -- -- -- -- -- 02/21/23 0823 122/65 37.5 ?C (99.5 ?F) Oral 89 20 94 % -- -- 02/21/23 0301 102/53 36.5 ?C (97.7 ?F) Oral 79 18 96 % -- -- 02/20/23 2339 107/58 36.6 ?C (97.9 ?F) Oral 79 18 96 % -- -- 02/20/23 1939 125/67 -- Oral 83 18 96 % -- -- 02/20/23 1458 126/69 36.4 ?C (97.5 ?F) Oral 84 16 97 % -- -- 02/20/23 1403 105/65 -- -- 81 -- 94 % -- -- 02/20/23 1302 118/65 36.3 ?C (97.3 ?F) Oral 80 16 96 % -- -- 02/20/23 1234 115/61 36.3 ?C (97.3 ?F) Oral 78 16 92 % -- -- 02/20/23 1201 -- -- -- -- -- -- 173 cm (5' 8.11 ) 102.1 kg (225 lb) 02/20/23 1200 97/59 36.8 ?C (98.2 ?F) Oral 78 16 91 % -- -- 02/20/23 1145 107/60 37 ?C (98.6 ?F) Temporal 79 20 97 % -- -- 02/20/23 1130 102/57 -- -- 78 23 95 % -- -- 02/20/23 1115 98/57 -- -- 79 24 91 % -- -- 02/20/23 1100 100/56 -- -- 82 22 93 % -- -- 02/20/23 1045 97/56 -- -- 84 15 95 % -- -- 02/20/23 1030 92/50 -- -- 71 29 98 % -- -- 02/20/23 1028 (!) 81/49 36.9 ?C (98.4 ?F) Temporal 80 22 98 % -- -- Body mass index is 34.1 kg/m?. DATA: CBC: Recent Labs 02/21/23 0805 WBC 7.47 RBC 3.13* HB 9.8* HCT 28.7* PLT 145* MCV 91.7 MCH 31.3 MPV 9.4 Coags: No results for input(s): PT , INR , APTT in the last 24 hours. CMP: Recent Labs 02/20/23 1213 NA 138 K 4.3 CHLOR 104 CO2 26 BUN 22 CREAT 0.73 GLUC 143* CA 8.4* ANION 8* ASSESSMENT AND PLAN: A. OA S/P - Total Hip Unilateral: right Continue PT/OT Hypertension, stable Possible discharge. Home-going meds reviewed SIGNATURE: Magaly Doll MD [facility] 02-21-2023 Note HNO ID: [id number] Author: Rojelio Winkler PA-C Service: Orthopaedic Surgery Author Type: Physician Field Court Researcher Type: Progress Notes Filed: 02/21/2023 9:15 AM Note Text: POSTOP NOTE ORTHOPAEDIC SURGERY SERVICE DATE: 02/21/2023 SERVICE TIME: 9:14 AM IMPRESSION/PLAN: S/P Procedure(s) (LRB): ARTHROPLASTY REPLACE JOINT TOTAL HIP (Right) on 02/20/2023 Physical Therapy evaluation PWB 40-50 lbs RLE, posterior hip precautions DVT prophylaxis: Intermittent pneumatic compression device (IPCD) and ASA 81 BID Pain control Case Management for discharge planning Plan of care discussed with: Provider, RN, Patient. Patient Active Hospital Problem List: No active hospital problems. POST OPERATIVE COMPLICATIONS: Complicated by uneventful/none SUBJECTIVE: Patient states that they are comfortable Well Controlled hip pain. Denies incisional pain. OBJECTIVE: VITAL SIGNS: BP 98/69 Pulse 89 Temp 37.5 ?C (99.5 ?F) (Oral) Resp 20 Ht 173 cm (5' 8.11 ) Wt 102.1 kg (225 lb) SpO2 94% BMI 34.10 kg/m? INTAKE AND OUTPUT: Intake/Output Summary (Last 24 hours) at 02/21/2023 0914 Last data filed at 02/21/2023 0546 Gross per 24 hour Intake 5368 ml Output 1225 ml Net 4143 ml LABS: Hemoglobin Date Value Ref Range Status 02/21/2023 9.8 (L) 13.0 - 17.0 g/dL Final 02/20/2023 11.7 (L) 13.0 - 17.0 g/dL Final Hematocrit Date Value Ref Range Status 02/21/2023 28.7 (L) 39.0 - 51.0 % Final 02/11/2023 45.3 39.0 - 51.0 % Final Platelet Count Date Value Ref Range Status 02/21/2023 145 (L) 150 - 400 k/uL Final 02/11/2023 210 150 - 400 k/uL Final WBC Date Value Ref Range Status 02/21/2023 7.47 3.70 - 11.00 k/uL Final 02/11/2023 7.99 3.70 - 11.00 k/uL Final Creatinine Date Value Ref Range Status 02/20/2023 0.73 0.73 - 1.22 mg/dL Final 02/11/2023 0.69 (L) 0.73 - 1.22 mg/dL Final Potassium Date Value Ref Range Status 02/20/2023 4.3 3.7 - 5.1 mmol/L Final 02/11/2023 4.3 3.7 - 5.1 mmol/L Final VTE Prophylaxis: Active VTE Risk Category Order: 02/20/23 1200 VTE RISK CATEGORY: SURGICAL HIGH RISK (KS,PR) Active VTE Medication Orders: Anticoagulant AND Antiplatelet Medications (From admission, onward) Start Dose Route Frequency Last Action Ordered Stop 02/21/23 0900 aspirin, enteric coated 81 mg tab(s) (Surgical Risk Categories) 81 mg ORAL 2 TIMES DAILY Ordered 02/20/23 1158 -- Active VTE Prophylaxis Orders: 02/20/23 1200 PNEUMATIC COMPRESSION STOCKINGS ([place]) 02/20/23 1200 ACTIVITY - MOBILIZE PATIENT ([place]) 02/20/23 1200 ACTIVITY - MOB[place] ([place] 02/20/23 1200 ACTIVITY - MOBILIZE PATIENT ([place]) PHYSICAL EXAMINATION: Right Lower Extremity: Dorsalis pedis pulses palpable. Posterior tibial pulses palpable. Dorsi flexion 5/5. Plantar flexion 5/5. Extensor hallucis extension: 5/5. Sensory intact to light touch L1-S1. Dressing clean, dry, and intact. Surgical site no drainage and Silverlon intact. Thigh is not swollen, calf is not tender, no signs of DVT or infection Problem Review and Assessment: Skin and Abdominal Wall: Patient monitored, no new events overnight Cardiovascular and Vascular: Patient monitored, no new events overnight Respiratory: Patient monitored, no new events overnight Endocrine and Metabolic: Patient monitored, no new events overnight Gastrointestinal: Patient monitored, no new events overnight Genitourinary and Nephrology: Patient monitored, no new events overnight Behavioral, Cerebrovascular and Nervous: Patient monitored, no new events overnight Infectious: Patient monitored, no new events overnight DATA: Diagnostic tests reviewed for today's visit: Most recent labs and imaging results. SIGNATURE: Rojelio Winkler PA-C PATIENT NAME: Juan Andrews DATE: February 21, 2023 TIME: 9:14 AM The patient has undergone major orthopedic surgery and participating in therapy. Pain cannot be managed within an average of 30 MED per day. Patient requiring average of higher than 30 MED per day in order to control pain and allow patient to actively and safely participate in therapy and this is the lowest dose consistent with patient's medical condition. Non-narcotic medication options have been discussed. In addition, the patient has been advised of the benefits and risks of the opioid (including the potential for addiction). Patient demonstrated understanding of risks versus benefits. [facility] 02-20-2023 Note HNO ID: [id number] Author: Adrienne Gaxiola RN Service: ? Author Type: Registered Nurse Type: Nursing Progress Note Filed: 02/20/2023 11:44 AM Note Text: Post operative xray complete. Patient continues to deny pain. [facility] 02-20-2023 Note HNO ID: [id number] Author: Adrienne Gaxiola RN Service: ? Author Type: Registered Nurse Type: Nursing Progress Note Filed: 02/20/2023 11:04 AM Note Text: medical technologist at bedside for post operative hemoglobin. Patient resting without complaint. [facility] 02-20-2023 Note HNO ID: [id number] Author: Adrienne Gaxiola RN Service: ? Author Type: Registered Nurse Type: Nursing Progress Note Filed: 02/20/2023 10:55 AM Note Text: Patient able to take ice chips without difficulty. Patient denies pain. 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 Staffing SRNA: Corbin Sams SRNA Performed by: IRMA Indications and Patient Condition Indications for airway management: anesthesia Preoxygenated: yes anesthesia circuit Patient position: sniffing Method: asleep Cricoid Pressure: Yes Manual In-Line Stabilization: No Difficult Mask: No Airway Accessory: oral airway Final Airway Details Final airway type: endotracheal airway Final Endotracheal Airway: ETT Cuffed: yes Successful intubation technique: video laryngoscopy Devices used: intubating stylet and Marvin Endotracheal tube insertion site: oral Blade: Cliff Blade size: #4 ETT size (mm): 7.5 Measured from: lips Measurement (cm): 22 Placement verified by: chest auscultation and capnometry Cormack-Lehane Classification: grade IIb - view of arytenoids or posterior of glottis only Number of attempts at approach: 1 Failed airway: no Unrecognized esophageal intubation: no Airway not difficult SIGNATURE: IRMA Rosas PATIENT NAME: Juan Andrews DATE: February 20, 2023 TIME: 7:57 AM CSN: [id number] [facility] 02-14-2023 Miscellaneous Notes Paperwork completed. [facility] Confirmation received. Copy sent for scanning. Copy mailed to the patient's home. Type of form: FMLA Form received via walk in When form is completed, Fax form to employer Form has been forwarded to nurse box for completion. Shirley Hein MA documented in this encounter [facility] 02-05-2023 Miscellaneous Notes TOTAL JOINT COMPLETE CARE PROGRAM PRE-OPERATIVE TEACHING Service Date: 02/05/2023 Service Time: 10:46 AM Date of : 1950 Gender: male Date of Surgery: 02/20/23 Procedure: Right Total Hip Replacement Complete Care Program was discussed with the patient: Pointer Machine Operator Identification: Patient identified a respiratory care instructor to help when discharged to home: and son lives next to them Home Environment: Home Layout: Ranch, Entry Steps: 1, Bedroom Location: 1st floor, Bathroom Location: 1st floor, and walk in shower. Pt owns walker and cane, shower chair. Discussed with patient importance of attending joint education class and provided date and times of class: YES declined Patient received Joint Education Binder: Yes Patient plans discharge home with [facility]. SIGNATURE: RODRIGO Reyes PATIENT NAME: Juan Andrews DATE: February 05, 2023 TIME: 10:11 AM documented in this encounter [facility] 02-01-2023 Miscellaneous Notes Surgery has been scheduled as requested. Surgical request completed for right GUSTAVO at [facility] on 02/20/2023. Post op appointments have been scheduled and mailed to the patient. Email sent to [employer] rep. documented in this encounter [facility] 01-31-2023 Note HNO ID: [id number] Author: Andressa Marx MD Service: ? Author Type: Physician Type: Progress Notes Filed: 02/19/2023 1:21 PM Note Text: CONSULT ORTHOPAEDIC: HIP PRIMARY CARE PHYSICIAN: Alexis Garcia MD REFERRING PROVIDER: Andressa Marx [address] [facility] [id number] ASSESSMENT AND PLAN Impression: Right Hip Severe Degenerative Osteoarthritis, Primary Diagnoses: (M16.0) Primary osteoarthritis of both hips (primary encounter diagnosis) (M25.551, M25.552, G89.29) Chronic pain of both hips Based upon the evaluation today and after discussions with Juan Andrews, Juan Andrews has significant, worsening pain at the hip. This pain is increased with activity and weight bearing, and interferes with activities of daily living. These symptoms have continued despite a number of non-surgical measures, including a trial of oral pain medication (for at least 12 weeks). At this point, the patient will not benefit from further PT due to the severity of their condition. The patient's physical examination is consistent with limitations in range of motion, pain with passive range of motion, and an antalgic gait. These examination findings are corroborated by imaging findings of joint space narrowing, periarticular osteophyte formation, and subchondral sclerosis. The patient has been treated by the practice and all reasonable treatments have failed to control the disease, which causes significant pain and limits activities of daily living. The patient has failed conservative treatment and joint replacement surgery was discussed and agreed upon by both provider and patient. The patient has elected to proceed with surgical management to improve function and relieve pain refractory to non-surgical measures: Right Primary Total Hip Arthroplasty as evidenced by six months of unsuccessful non-operative treatment as outlined in the HPI below and progressive symptoms. Progressive symptoms include: Pain worsened by weight bearing Pain effecting living situation Unable to ambulate 2 blocks without significant pain and dysfunction. Surgery Details Date and Location: At [facility] on 02/20/2023. Implants: [place] Robotic: No Predicted LOS: 2 days (Inpatient candidate) The risks and benefits of surgery were discussed at length including but not limited to the risks of infection, bleeding, nerve or blood vessel injury, deep venous thrombosis, pulmonary embolism, , paralysis, hip dislocation, leg length discrepancy (including requiring use of permanent shoe lift), bone fracture, component loosening or failure requiring re-operation or amputation. Informed consent was obtained and the patient was scheduled. We also discussed fixation strategies including cement and cementless fixation and modern alternative bearings including metal or ceramic with cross-linked polyethylene, [id number] and [id number] as well as advantages and disadvantages of each. We also discussed less invasive surgical approaches and reported benefits and risks of these approaches. The patient has been ordered: No orders found for this visit on 01/31/23. No orders placed today. CONSULTS: Patient does not require consults for optimization at this time. Total Joint Arthroplasty: Risk Calculator Juan Andrews has a 12.55% chance of NOT returning home at discharge for a Primary total Hip replacement. Juan's estimated Length of Stay is 2 days (Inpatient candidate). Juan's 30 day chance of readmission is 2.65%. Readmission Probability 2.65 % (within 30 days following surgery) Estimated LOS 2 days Discharge Disposition Probability D/C to Home 87.45 % D/C to SNF 12.55 % These calculations are based on the following factors: - 72 years of age - sex is male - BMI of 36.46 kg/m2 - NarxCare score of 0 - 0 hospitalizations in the last 12 months - no history of heart disease - no history of diabetes - no history of COPD - no history of anemia - preoperative ambulation: impaired community distances - 2 step(s) to enter home - bed location is on the first floor - bath location is on the first floor - caregiver is consistent - home is not more than 150 miles away - PROMIS-10 Mental Health T score not available - Marital status: Risk Factors for Total Hip Arthroplasty (GUSTAVO) Major Risk Factors Obesity Moderate Risk High: BMI > 40 Moderate: BMI 30-40 Normal: BMI < 30 Diabetes normal High: A1C > 8 Moderate: A1C 7-8 Normal: A1C < 7 Smoking normal High: Current smoker Normal: Non smoker Narcotics Use normal High:NarxCare >=300 Moderate: 100-299 Normal: 0-99 Depression normal High: PHQ-9 >14 Moderate: PHQ-9 5-14 Normal: PHQ-9 < 5 Area Deprivation Index (JOHNNA) Moderate Risk High: JOHNNA Score > 75 Moderate: JOHNNA 50-75 Normal: JOHNNA < 50 Obesity: weight management recommended BMI Readings from Last 3 Encounters: 12/17/22 : 36.46 kg/m? 10/15/22 : 35.96 kg/m (more content not included)... [facility] 01-31-2023 History of Present illness Narrative CONSULT ORTHOPAEDIC: HIP PRIMARY CARE PHYSICIAN: Alexis Garcia MD REFERRING PROVIDER: Andressa Marx [address] [facility] [id number] ASSESSMENT & PLAN Impression: Right Hip Severe Degenerative Osteoarthritis, Primary Diagnoses: (M16.0) Primary osteoarthritis of both hips (primary encounter diagnosis) (M25.551, M25.552, G89.29) Chronic pain of both hips Based upon the evaluation today and after discussions with Juan Andrews, Juan Andrews has significant, worsening pain at the hip. This pain is increased with activity and weight bearing, and interferes with activities of daily living. These symptoms have continued despite a number of non-surgical measures, including a trial of oral pain medication (for at least 12 weeks). At this point, the patient will not benefit from further PT due to the severity of their condition. The patient's physical examination is consistent with limitations in range of motion, pain with passive range of motion, and an antalgic gait. These examination findings are corroborated by imaging findings of joint space narrowing, periarticular osteophyte formation, and subchondral sclerosis. The patient has been treated by the practice and all reasonable treatments have failed to control the disease, which causes significant pain and limits activities of daily living. The patient has failed conservative treatment and joint replacement surgery was discussed and agreed upon by both provider and patient. The patient has elected to proceed with surgical management to improve function and relieve pain refractory to non-surgical measures: Right Primary Total Hip Arthroplasty as evidenced by six months of unsuccessful non-operative treatment as outlined in the HPI below and progressive symptoms. Progressive symptoms include: Pain worsened by weight bearing Pain effecting living situation Unable to ambulate 2 blocks without significant pain and dysfunction. Surgery Details Date and Location: At [facility] on 02/20/2023. Implants: [place] Robotic: No Predicted LOS: 2 days (Inpatient candidate) The risks and benefits of surgery were discussed at length including but not limited to the risks of infection, bleeding, nerve or blood vessel injury, deep venous thrombosis, pulmonary embolism, , paralysis, hip dislocation, leg length discrepancy (including requiring use of permanent shoe lift), bone fracture, component loosening or failure requiring re-operation or amputation. Informed consent was obtained and the patient was scheduled. We also discussed fixation strategies including cement and cementless fixation and modern alternative bearings including metal or ceramic with cross-linked polyethylene, [id number] and [id number] as well as advantages and disadvantages of each. We also discussed less invasive surgical approaches and reported benefits and risks of these approaches. The patient has been ordered: No orders found for this visit on 01/31/23. No orders placed today. CONSULTS: Patient does not require consults for optimization at this time. Total Joint Arthroplasty: Risk Calculator Juan Andrews has a 12.55% chance of NOT returning home at discharge for a Primary total Hip replacement. Juan's estimated Length of Stay is 2 days (Inpatient candidate). Juan's 30 day chance of readmission is 2.65%. Readmission Probability 2.65 % (within 30 days following surgery) Estimated LOS 2 days Discharge Disposition Probability D/C to Home 87.45 % D/C to SNF 12.55 % These calculations are based on the following factors: - 72 years of age - sex is male - BMI of 36.46 kg/m2 - NarxCare score of 0 - 0 hospitalizations in the last 12 months - no history of heart disease - no history of diabetes - no history of COPD - no history of anemia - preoperative ambulation: impaired community distances - 2 step(s) to enter home - bed location is on the first floor - bath location is on the first floor - caregiver is consistent - home is not more than 150 miles away - PROMIS-10 Mental Health T score not available - Marital status: Risk Factors for Total Hip Arthroplasty (GUSTAVO) Major Risk Factors Obesity Moderate Risk High: BMI > 40 Moderate: BMI 30-40 Normal: BMI < 30 Diabetes normal High: A1C > 8 Moderate: A1C 7-8 Normal: A1C < 7 Smoking normal High: Current smoker Normal: Non smoker Narcotics Use normal High:NarxCare >=300 Moderate: 100-299 Normal: 0-99 Depression normal High: PHQ-9 >14 Moderate: PHQ-9 5-14 Normal: PHQ-9 < 5 Area Deprivation Index (JOHNNA) Moderate Risk High: JOHNNA Score > 75 Moderate: JOHNNA 50-75 Normal: JOHNNA < 50 Obesity: weight management recommended BMI Readings from Last 3 Encounters: 12/17/22 : 36.46 kg/m 10/15/22 : 35.96 kg/m 04/09/22 : 36.34 kg/m Area Deprivation Index (JOHNNA) JOHNNA Score 06/02/2022 10/15/2022 National Score 56 72 Patient Health Questionnaire (PHQ-9) PHQ-9 04/09/2022 10/15/2022 PHQ-2 Score 0 0 (0-4) minimal depression, (5-9) mild depression, (10-14) moderate depression, (15-19) moderately severe depression, (20-27) severe depression Bone Density Risk Screen Juan Andrews is at risk for bone loss and has not had a bone densitometry scan in the last 2 years (date of last scan: None on file). Recommend a bone densitometry scan and if indicated on the bone density results, a consult to a bone health specialist (Rheumatology, Endocrinology, or Women's Health) for bone assessment. Risk Factors: History of falls Prednisone or use of systemic steroids Additional Risk Factors Malnutrition: No Malnutrition Screening Tool (MST) score on file- please complete the MST screening tool (click here to open) and refresh the note. ACTIVE PROBLEM LIST Hypertension Obesity (Bmi 30.0-34.9) Elevated Prostate Specific Antigen (Psa) SUBJECTIVE CHIEF COMPLAINT: Hip Pain HPI: Juan Andrews is a 72 year old patient with the presenting complaint of Pain of the Right Hip (Wants to discuss a GUSTAVO - right hip first) and Pain of the Left Hip. Juan Andrews has had progressive problems with the hip(s) constantly over the past 2 year(s) interfering with activities which include walking 2 blocks, participating in family activities, enjoying hobbies, rising from a sitting position, getting in and out of a car, climbing stairs, and safety-increased risk for fall. The problem began limiting activities 7-12 months ago. Juan reports a current pain level of 9 (Hip-Right). He describes the pain as Stabbing, Aching. The pain is Intermittent . Interventions tried include Medication, Reposition, Heat. FALL RISK: Juan is not currently at risk for falls. Patient presents with: Right Hip - Pain: Wants to discuss a GUSTAVO - right hip first Left Hip - Pain Patient states he has decided to go ahead with a right TKA. Would like to discuss that today. States the pain is worse in the right hip. Patient states the pain gets better once he is up and moving. Uses a cane for ambulation. AMB ROOMING INTAKE FLOWSHEET DATA Pain Pain Level: 9 Pain Location: Hip-Right Description: Stabbing, Aching Duration Amount of Time: (ongoing and getting worse) Frequency: Intermittent Intervention/Comfort measure: Medication, Reposition, Heat FUNCTIONAL STATUS: Climb a flight of stairs or walk up a hill (5.50 METs) PREVIOUS TREATMENTS: Current Anti-Inflammatory medications: etodolac Past anti-inflammatory medications (not necessarily for this reason for visit): etodolac, meloxicam, prednisone Attempted Weight Loss Medical: RX NSAIDS for 3 Months or Greater (etodolac (Ultradol)) REVIEW OF SYSTEMS: PAIN ASSESSMENT: See HPI. MUSCULOSKELETAL: See HPI. No flowsheet data found. PAST MEDICAL HISTORY Diagnosis Date Elevated prostate specific antigen (PSA) 11/04/2020 Hypertension Obesity (BMI 30.0-34.9) PAST SURGICAL HISTORY Procedure Laterality Date ADENOIDECTOMY PRIMARY <AGE 13 Adenoidectomy ARTHRP KNE CONDYLE&PLATU MEDIAL&LAT COMPARTMENTS 04/15/2006 Knee replacement, total bilateral ARTHRP KNE CONDYLE&PLATU MEDIAL&LAT COMPARTMENTS Right 2016 REPAIR UMBILICAL HERNIA 2006 repeat RPR UMBILICAL HRNA 5 YRS/> REDUCIBLE 1999 Hernia repair, umbilical >5yr TONSILLECTOMY PRIMARY/SECONDARY <AGE 13 Tonsillectomy FAMILY HISTORY Problem Relation Age of Onset Diabetes Mother Arthritis Sister knee relacements Arthritis Sister knee replacements Arthritis Sister knee replacements Arthritis Brother hip replacement Hypertension Brother Peripheral Artery Disease Brother No Known Problems Son No Known Problems Son Glaucoma No Family History Detached Retina No Family History Macular Degen No Family History Blindness No Family History Social History Tobacco Use Smoking status: Never Smokeless tobacco: Never Vaping Use Vaping Use: Never used Substance Use Topics Alcohol use: Yes Comment: beer weekends 1 to 2 Drug use: Never ALLERGIES: Seasonal Allergies MEDICATIONS: etodolac (LODINE) 400 mg tablet Take 1 tablet by mouth twice daily. lisinopril (ZESTRIL) 40 mg tablet Take 1 tablet by mouth once daily. hydroCHLOROthiazide 12.5 mg capsule Take 1 capsule by mouth once daily. OBJECTIVE PHYSICAL EXAM There were no vitals taken for this visit. All other systems deferred. GENERAL: Appears healthy, well-nourished, no deformities. HABITUS: Obese GAIT: Antalgic to the right, greater than left HIP EXAM: Right: ROM: Extension: 5 degree flexion contracture Flexion: 90 degrees Internal Rotation: 15 degrees External Rotation: 20 degrees Abduction: 20 degrees Adduction: 20 degrees Strength: Abduction 4/5 and Flexion 4/5 Palpation: No tenderness Log roll: painful. Straight leg raise: Negative Neurovascular Status: Sensation Intact, Moves foot and ankle up & down, and 2+ dorsalis pedis DATA: He was last seen in orthopaedic clinic for his hip on 01/24/2023 with Andressa Marx. Most recent hip imaging was completed on 10/17/2022 (XR HIP BILATERAL 5V PEL/AP/LAT EACH HIP) . Diagnostic tests reviewed for today's visit: Most recent films The following conditions were addressed during the office visit today: Obesity - Weight management strategies were discussed including diet and exercise. A Consult to Weight Management will be completed to follow up on the plan of care. SIGNATURE: Andressa Marx MD PATIENT NAME: Juan Andrews DATE: January 31, 2023 TIME: 10:26 AM documented in this encounter [facility] 01-28-2023 Miscellaneous Notes Patients spouse called in this morning stating patient is so painful and he is ready to discuss GUSTAVO. They want to hold off on injection at this time. I called and left a detailed message on Emani's voicemail with same message. Emani in scheduling at [facility] called. She called patient to schedule fluoroscopy but patient declined scheduling stating he is to have surgery on and does not need it. Patient requested that she call to get clarification. Please review and advise. Suad Rivera LPN documented in this encounter [facility] 01-24-2023 Note HNO ID: [id number] Author: Stephanie Deleon Ma Service: ? Author Type: ? Type: Progress Notes Filed: 01/24/2023 9:52 AM Note Text: Referral done in computer. Orders faxed to [facility] 01-24-2023 Note HNO ID: [id number] Author: Andressa Marx MD Service: ? Author Type: Physician Type: Progress Notes Filed: 01/24/2023 9:20 AM Note Text: Andressa Marx MD Department of Orthopaedics Orthopaedics [address] [facility] [address] Dept: [phone] Dept January 24, 2023 CHIEF COMPLAINT: New and Pain of the Right Hip and New and Pain of the Left Hip HPI Patient here today for bilateral hip pain that has been going on for a couple years. He noticed in the spring that his pain was constant and progressively getting worse. Pain in the left groin. He reports the right knee is bothering him too. He has had the right knee replaced twice. He is taking meloxicam without much relief. X-ray completed at [facility] on 10/15/2022. ASSESSMENT: M16.0 Primary osteoarthritis of both hips PLAN: We had a lengthy discussion about his hips which have quite severe osteoarthritic changes. He is trying to still work for maybe about another year and is not quite interested in surgery at this time. He would like to switch his anti-inflammatory to see if another medicine can provide him some improved benefit, it also like to try intra-articular injections under fluoroscopy. FOLLOW UP INSTRUCTIONS: As needed Mr. Juan Andrews was advised as to contrast therapies and/or to take analgesics/anti-inflammatories as needed and all contraindications were reviewed. OBJECTIVE: Mr. Juan Andrews is a pleasant 72 year old in no apparent distress. Gen:There were no vitals taken for this visit. nl development, obese, no deformities ENT: Normocephalic, normal hearing, moist mucosa CV: Pulses:Radial= 2+ and symmetric, capillary refill < 2 secs, no peripheral edema/varicosities Skin: no rash, bruising or lesions. Good turgor. Psych: cooperative and appropriate, alert and oriented x 3, good mood and affect. Musculoskeletal: He has a limited gait with stiffness and antalgia to the right greater than left. He has limited motion of both hips right greater than left. Pain with flexion and any internal rotation beyond neutral. Neurovascular exam lower extremities are intact. IMAGING: IMPRESSION: END-STAGE DEGENERATIVE DISC DISEASE OF THE HIP BILATERALLY. 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 Pt. states chronic bilat hip pain. No specific injury TECHNIQUE: XR HIP TAM 5V PEL+ AP/LAT EA HIP Laterality: BILATERAL Number of different views (projections): 5 COMPARISON: None RESULT: Bilateral hip: Marked superior joint space remote [id number] contact, collar marginal osteophytes bilaterally. Medial femoral and cortical buttressing bilaterally. Subchondral cyst in the right femoral head. Symphysis pubis and cyclic joints are intact. Advanced degenerative changes in the visualized lumbar spine. Supporting Subjective Information Below: Past Medical History: PAST MEDICAL HISTORY Diagnosis Date Elevated prostate specific antigen (PSA) 11/04/2020 Hypertension Obesity (BMI 30.0-34.9) Past Surgical History: PAST SURGICAL HISTORY Procedure Laterality Date ADENOIDECTOMY PRIMARY Adenoidectomy ARTHRP KNE CONDYLEANDPLATU MEDIALANDLAT COMPARTMENTS 04/15/2006 Knee replacement, total bilateral ARTHRP KNE CONDYLEANDPLATU MEDIALANDLAT COMPARTMENTS Right 2016 REPAIR UMBILICAL HERNIA 2006 repeat RPR UMBILICAL HRNA 5 YRS/> REDUCIBLE 2000 Hernia repair, umbilical >5yr TONSILLECTOMY PRIMARY/SECONDARY Tonsillectomy Family History: FAMILY HISTORY Problem Relation Age of Onset Diabetes Mother Arthritis Sister knee relacements Arthritis Sister knee replacements Arthritis Sister knee replacements Arthritis Brother hip replacement Hypertension Brother Peripheral Artery Disease Brother No Known Problems Son No Known Problems Son Glaucoma No Family History Detached Retina No Family History Macular Degen No Family History Blindness No Family History Social History: Social History Tobacco Use Smoking status: Never Smokeless tobacco: Never Vaping Use Vaping Use: Never used Substance Use Topics Alcohol use: Yes Comment: beer weekends 1 to 2 Drug use: Never Medications: Current Outpatient Medications Medication Sig meloxicam (MOBIC) 15 mg tablet Take 1 tablet by mouth once daily. With food. lisinopril (ZESTRIL) 40 mg tablet Take 1 tablet by mouth once daily. hydroCHLOROthiazide 12.5 mg capsule Take 1 capsule by mouth once daily. No current fac (more content not included)... [facility] 01-24-2023 History of Present illness Narrative Referral done in computer. Orders faxed to [facility] Andressa Marx MD Department of Orthopaedics Orthopaedics [address] [facility] [address] Dept: [phone] Dept January 24, 2023 CHIEF COMPLAINT: New and Pain of the Right Hip and New and Pain of the Left Hip HPI Patient here today for bilateral hip pain that has been going on for a couple years. He noticed in the spring that his pain was constant and progressively getting worse. Pain in the left groin. He reports the right knee is bothering him too. He has had the right knee replaced twice. He is taking meloxicam without much relief. X-ray completed at [facility] on 10/15/2022. ASSESSMENT: M16.0 Primary osteoarthritis of both hips PLAN: We had a lengthy discussion about his hips which have quite severe osteoarthritic changes. He is trying to still work for maybe about another year and is not quite interested in surgery at this time. He would like to switch his anti-inflammatory to see if another medicine can provide him some improved benefit, it also like to try intra-articular injections under fluoroscopy. FOLLOW UP INSTRUCTIONS: As needed Mr. Juan Andrews was advised as to contrast therapies and/or to take analgesics/anti-inflammatories as needed and all contraindications were reviewed. OBJECTIVE: Mr. Juan Andrews is a pleasant 72 year old in no apparent distress. Gen:There were no vitals taken for this visit. nl development, obese, no deformities ENT: Normocephalic, normal hearing, moist mucosa CV: Pulses:Radial= 2+ and symmetric, capillary refill < 2 secs, no peripheral edema/varicosities Skin: no rash, bruising or lesions. Good turgor. Psych: cooperative and appropriate, alert and oriented x 3, good mood and affect. Musculoskeletal: He has a limited gait with stiffness and antalgia to the right greater than left. He has limited motion of both hips right greater than left. Pain with flexion and any internal rotation beyond neutral. Neurovascular exam lower extremities are intact. IMAGING: IMPRESSION: END-STAGE DEGENERATIVE DISC DISEASE OF THE HIP BILATERALLY. 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 Pt. states chronic bilat hip pain. No specific injury TECHNIQUE: XR HIP TAM 5V PEL+ AP/LAT EA HIP Laterality: BILATERAL Number of different views (projections): 5 COMPARISON: None RESULT: Bilateral hip: Marked superior joint space remote [id number]-[id number] contact, collar marginal osteophytes bilaterally. Medial femoral and cortical buttressing bilaterally. Subchondral cyst in the right femoral head. Symphysis pubis and cyclic joints are intact. Advanced degenerative changes in the visualized lumbar spine. Supporting Subjective Information Below: Past Medical History: PAST MEDICAL HISTORY Diagnosis Date Elevated prostate specific antigen (PSA) 11/04/2020 Hypertension Obesity (BMI 30.0-34.9) Past Surgical History: PAST SURGICAL HISTORY Procedure Laterality Date ADENOIDECTOMY PRIMARY <AGE 13 Adenoidectomy ARTHRP KNE CONDYLE&PLATU MEDIAL&LAT COMPARTMENTS 04/15/2006 Knee replacement, total bilateral ARTHRP KNE CONDYLE&PLATU MEDIAL&LAT COMPARTMENTS Right 2016 REPAIR UMBILICAL HERNIA 2006 repeat RPR UMBILICAL HRNA 5 YRS/> REDUCIBLE 2000 Hernia repair, umbilical >5yr TONSILLECTOMY PRIMARY/SECONDARY <AGE 13 Tonsillectomy Family History: FAMILY HISTORY Problem Relation Age of Onset Diabetes Mother Arthritis Sister knee relacements Arthritis Sister knee replacements Arthritis Sister knee replacements Arthritis Brother hip replacement Hypertension Brother Peripheral Artery Disease Brother No Known Problems Son No Known Problems Son Glaucoma No Family History Detached Retina No Family History Macular Degen No Family History Blindness No Family History Social History: Social History Tobacco Use Smoking status: Never Smokeless tobacco: Never Vaping Use Vaping Use: Never used Substance Use Topics Alcohol use: Yes Comment: beer weekends 1 to 2 Drug use: Never Medications: Current Outpatient Medications Medication Sig meloxicam (MOBIC) 15 mg tablet Take 1 tablet by mouth once daily. With food. lisinopril (ZESTRIL) 40 mg tablet Take 1 tablet by mouth once daily. hydroCHLOROthiazide 12.5 mg capsule Take 1 capsule by mouth once daily. No current facility-administered medications for this visit. Allergies: Seasonal Allergies ROS: General (negative for fatigue, malaise, weight loss/gain) HEENT (negative for headache, earache, recent vision changes, sinus pain, sore throat) Respiratory (no recent shortness of breath, hemoptysis) CV (negative for chest tightness, palpitations) Musculoskeletal (see HPI) Psych (no depression, anxiety) REFERRING PHYSICIAN: Consultation requested by Dr. Garcia for an opinion regarding hip pain. My final recommendations will be communicated back to the requesting physician by way of shared Medical record or letter to requesting physician via US mail. Alexis Garcia [address] [facility] [address] Andressa Marx MD documented in this encounter [facility] 12-17-2022 Note HNO ID: [id number] Author: Alexis Garcia MD Service: ? Author Type: Physician Type: Progress Notes Filed: 12/17/2022 10:23 AM Note Text: Chief Complaint Patient presents with: Follow Up: Hip pain HPI Juan Andrews is a 72 year old male who presents here today for Above Complaints.. Evaluated for hip pain on 10/15 with following HPI: C/o bilateral hip pain for the last 2 months without fall or injury. Worst in the morning and feels stiff. Improved with ambulation. Treating with ibuprofen and just started home stretches which helps somewhat. Denies redness, swelling, warmth to touch, bruising. Found to have severe arthritis of his hips on xray. Started on Meloxicam and referred to PT. Offered referral to ortho after his xray results came back, but patient refused at that time. Today, patient states that he is taking meloxicam which is helping with his pain. Pain while seated is mild and moderate with ambulation. Did not follow up with PT, but has been doing some home exercises on a daily basis. Admits to limp with ambulation and stiffness when first getting up from seated position. Denies new fall/injury to hips, fever/chills, erythema, swelling, bruising. Past medical history, appointments, medications, allergies reviewed. Previous Medical History PAST MEDICAL HISTORY Diagnosis Date Elevated prostate specific antigen (PSA) 11/04/2020 Hypertension Obesity (BMI 30.0-34.9) Previous Surgical History PAST SURGICAL HISTORY Procedure Laterality Date ADENOIDECTOMY PRIMARY Adenoidectomy ARTHRP KNE CONDYLEANDPLATU MEDIALANDLAT COMPARTMENTS 04/15/2006 Knee replacement, total bilateral ARTHRP KNE CONDYLEANDPLATU MEDIALANDLAT COMPARTMENTS Right 2016 REPAIR UMBILICAL HERNIA 2005 repeat RPR UMBILICAL HRNA 5 YRS/> REDUCIBLE 2000 Hernia repair, umbilical >5yr TONSILLECTOMY PRIMARY/SECONDARY Tonsillectomy Family History FAMILY HISTORY Problem Relation Age of Onset Diabetes Mother Arthritis Sister knee relacements Arthritis Sister knee replacements Arthritis Sister knee replacements Arthritis Brother hip replacement Hypertension Brother Peripheral Artery Disease Brother No Known Problems Son No Known Problems Son Glaucoma No Family History Detached Retina No Family History Macular Degen No Family History Blindness No Family History Patient Allergies ALLERGIES Allergen Reactions Seasonal Allergies Cough Current Medications Current Outpatient Medications on File Prior to Visit Medication Sig meloxicam (MOBIC) 15 mg tablet Take 1 tablet by mouth once daily. With food. lisinopril (ZESTRIL) 40 mg tablet Take 1 tablet by mouth once daily. hydroCHLOROthiazide 12.5 mg capsule Take 1 capsule by mouth once daily. No current facility-administered medications on file prior to visit. Social History Social History Tobacco Use Smoking status: Never Smokeless tobacco: Never Vaping Use Vaping Use: Never used Substance Use Topics Alcohol use: Yes Comment: beer s 1 to 2 Drug use: Never Review of Symptoms REVIEW OF SYSTEMS See HPOI EXAM: BP 136/80 Pulse 82 Resp 16 Wt 105.6 kg (232 lb 12.8 oz) SpO2 93% BMI 36.46 kg/m? General Appearance: Well appearing, alert, in no acute distress, well-hydrated, well nourished.. Skin: Skin color, texture, turgor normal, no suspicious rashes or lesions. HIP: Location: Bilateral Redness: No. Warmth: No. Range of motion: Very limited Tenderness over trochanteric bursa: No Pain with movement: Yes. Antalgic gait with right limp. Stiff getting out of chair. Health Maintenance List BP CONTROLLED (<130/80) Never done ADVANCE DIRECTIVE DISCUSSION due on 05/13/2022 COVID-19 VACCINE(6 - Moderna series) due on 06/05/2022 SHINGRIX VACCINE(1 of 2) due on 04/09/2023 INFLUENZA(1) due on 01/11/2023 COLORECTAL CANCER SCREENING due on 04/22/2023 ANNUAL PCP TEAM CHRONIC DISEASE VISIT due on 10/16/2023 DIABETES SCREEN due on 10/15/2025 LIPID SCREEN due on 04/09/2027 DTAP,TDAP,TD(4 - Td or Tdap) due on 10/12/2029 DEPRESSION ASSESSMENT Completed HEPATITIS C SCREENING Completed PNEUMOCOCCAL: 65+ Completed Data reviewed XR HIP BILATERAL 5V PEL/AP/LAT EACH HIP 10/15/22 IMPRESSION: END-STAGE DEGENERATIVE DISC DISEASE OF THE HIP BILATERALLY. ASSESSMENT/PLAN: 1. Primary osteoarthritis of both hips - ICD9: 715.15, ICD10: M16.0 (primary diagnosis) Severe OA. Improved with NSAIDs. Continue home exercises. Will refer to ortho to discuss injection for hip replacement. - CONSULT TO ORTHOPAEDICS 2. Hip pain, bilateral - ICD9: 719.45, ICD10: M25.551, M25.552 See above. 3. Primary hypertension - ICD9: 401.9, ICD10: I10 - Controlled - Continue current medications - Recommend home blood pressure monitoring, to bring results to next visit - Encouraged sodium restriction, DASH or Mediterranean diet - Recommend regular aerobic exercise 4. Encounter for immunizat (more content not included)... [facility] 12-17-2022 History of Present illness Narrative Chief Complaint Patient presents with: Follow Up: Hip pain HPI Juan Andrews is a 72 year old male who presents here today for Above Complaints.. Evaluated for hip pain on 10/15 with following HPI: C/o bilateral hip pain for the last 2 months without fall or injury. Worst in the morning and feels stiff. Improved with ambulation. Treating with ibuprofen and just started home stretches which helps somewhat. Denies redness, swelling, warmth to touch, bruising. Found to have severe arthritis of his hips on xray. Started on Meloxicam and referred to PT. Offered referral to ortho after his xray results came back, but patient refused at that time. Today, patient states that he is taking meloxicam which is helping with his pain. Pain while seated is mild and moderate with ambulation. Did not follow up with PT, but has been doing some home exercises on a daily basis. Admits to limp with ambulation and stiffness when first getting up from seated position. Denies new fall/injury to hips, fever/chills, erythema, swelling, bruising. Past medical history, appointments, medications, allergies reviewed. Previous Medical History PAST MEDICAL HISTORY Diagnosis Date Elevated prostate specific antigen (PSA) 11/04/2020 Hypertension Obesity (BMI 30.0-34.9) Previous Surgical History PAST SURGICAL HISTORY Procedure Laterality Date ADENOIDECTOMY PRIMARY <AGE 13 Adenoidectomy ARTHRP KNE CONDYLE&PLATU MEDIAL&LAT COMPARTMENTS 04/15/2006 Knee replacement, total bilateral ARTHRP KNE CONDYLE&PLATU MEDIAL&LAT COMPARTMENTS Right 2016 REPAIR UMBILICAL HERNIA 2005 repeat RPR UMBILICAL HRNA 5 YRS/> REDUCIBLE 1999 Hernia repair, umbilical >5yr TONSILLECTOMY PRIMARY/SECONDARY <AGE 13 Tonsillectomy Family History FAMILY HISTORY Problem Relation Age of Onset Diabetes Mother Arthritis Sister knee relacements Arthritis Sister knee replacements Arthritis Sister knee replacements Arthritis Brother hip replacement Hypertension Brother Peripheral Artery Disease Brother No Known Problems Son No Known Problems Son Glaucoma No Family History Detached Retina No Family History Macular Degen No Family History Blindness No Family History Patient Allergies ALLERGIES Allergen Reactions Seasonal Allergies Cough Current Medications Current Outpatient Medications on File Prior to Visit Medication Sig meloxicam (MOBIC) 15 mg tablet Take 1 tablet by mouth once daily. With food. lisinopril (ZESTRIL) 40 mg tablet Take 1 tablet by mouth once daily. hydroCHLOROthiazide 12.5 mg capsule Take 1 capsule by mouth once daily. No current facility-administered medications on file prior to visit. Social History Social History Tobacco Use Smoking status: Never Smokeless tobacco: Never Vaping Use Vaping Use: Never used Substance Use Topics Alcohol use: Yes Comment: beer weekends 1 to 2 Drug use: Never Review of Symptoms REVIEW OF SYSTEMS See HPOI EXAM: BP 136/80 Pulse 82 Resp 16 Wt 105.6 kg (232 lb 12.8 oz) SpO2 93% BMI 36.46 kg/m General Appearance: Well appearing, alert, in no acute distress, well-hydrated, well nourished.. Skin: Skin color, texture, turgor normal, no suspicious rashes or lesions. HIP: Location: Bilateral Redness: No. Warmth: No. Range of motion: Very limited Tenderness over trochanteric bursa: No Pain with movement: Yes. Antalgic gait with right limp. Stiff getting out of chair. Health Maintenance List BP CONTROLLED (<130/80) Never done ADVANCE DIRECTIVE DISCUSSION due on 05/13/2022 COVID-19 VACCINE(6 - Moderna series) due on 06/05/2022 SHINGRIX VACCINE(1 of 2) due on 04/09/2023 INFLUENZA(1) due on 01/11/2023 COLORECTAL CANCER SCREENING due on 04/22/2023 ANNUAL PCP TEAM CHRONIC DISEASE VISIT due on 10/16/2023 DIABETES SCREEN due on 10/15/2025 LIPID SCREEN due on 04/09/2027 DTAP,TDAP,TD(4 - Td or Tdap) due on 10/12/2029 DEPRESSION ASSESSMENT Completed HEPATITIS C SCREENING Completed PNEUMOCOCCAL: 65+ Completed Data reviewed XR HIP BILATERAL 5V PEL/AP/LAT EACH HIP 10/15/22 IMPRESSION: END-STAGE DEGENERATIVE DISC DISEASE OF THE HIP BILATERALLY. ASSESSMENT/PLAN: 1. Primary osteoarthritis of both hips - ICD9: 715.15, ICD10: M16.0 (primary diagnosis) Severe OA. Improved with NSAIDs. Continue home exercises. Will refer to ortho to discuss injection for hip replacement. - CONSULT TO ORTHOPAEDICS 2. Hip pain, bilateral - ICD9: 719.45, ICD10: M25.551, M25.552 See above. 3. Primary hypertension - ICD9: 401.9, ICD10: I10 - Controlled - Continue current medications - Recommend home blood pressure monitoring, to bring results to next visit - Encouraged sodium restriction, DASH or Mediterranean diet - Recommend regular aerobic exercise 4. Encounter for immunization - ICD9: V03.89, ICD10: Z23 - PFIZER-[employer]ION[employer] COVID-19 BIVALENT VACCINE, AGE 12+ YR Alexis Garcia MD documented in this encounter [facility] 11-29-2022 Miscellaneous Notes The following approved medication requests have been transmitted electronically. Requested Prescriptions Pending Prescriptions Disp Refills meloxicam (MOBIC) 15 mg tablet 30 tablet 2 Sig: Take 1 tablet by mouth once daily. With food. Sai Chu APRN.PATTY Patient's calling to request refill of pt's Meloxicam, if provider agreeable . Reports it has helped patient's arthritis tremendously . No call back needed if able to refill. Thank you. Requested Prescriptions Pending Prescriptions Disp Refills meloxicam (MOBIC) 15 mg tablet 30 tablet 1 Sig: Take 1 tablet by mouth once daily. With food. Last encounter with this provider: 10/15/2022 Next appt: 12/17/2022 Kinga Gregg RN documented in this encounter [facility] 10-18-2022 Miscellaneous Notes Spoke with , reviewed results. She will discuss with patient and call insurance, then call back. Yanique Lopez Ma ----- Message from Alexis Garcia MD sent at 10/18/2022 8:06 AM EDT ----- Xray of his hips shows severe arthritis bilaterally. Based on severity of the arthritis, would recommend f/u with ortho for possible injection vs hip replacement. Will place referral if patient agreeable. documented in this encounter [facility] 10-16-2022 Miscellaneous Notes Patients informed and verbalized understanding. Jana Sands PSA trending up over the last 18 months, but is still in normal range for his age. 70 to 79 years - 0 to 6.5 ng/mL. Recommend recheck in 6 months. If continuing to increase, consider referral to urology. Call with change in urinary symptoms. Other labs are unremarkable. documented in this encounter [facility] 10-15-2022 Note HNO ID: [id number] Author: Dejan Carrillo RT(R) Service: ? Author Type: Technologist Type: Progress Notes Filed: 10/15/2022 10:02 AM Note Text: Radiology Service Progress Note PATIENT NAME: Juan Andrews DATE OF SERVICE: October 15, 2022 TIME: 9:45 AM PATIENT IDENTITY VERIFICATION COMPLETED USING TWO (2) IDENTIFIERS: Name and Date of confirmed by patient verbally. FALL SCREENING: Has the patient had 2 falls in the last year or 1 fall with injury or currently using an Ambulatory Assistive Device (Walker, Cane, Wheelchair, Crutches, etc.)? No PATIENT GENDER DATA: Male PATIENT RELEVANT IMPLANT DATA REVIEWED: Not Applicable RADIOLOGY DEPARTMENT: General X-ray: Exam(s) Completed: Pelvis X-Ray: Pelvis with Hip Bilateral PERIPHERAL IV DATA: Not applicable SIGNED BY: RT Osmar(R) October 15, 2022 9:45 AM [facility] 10-15-2022 Note HNO ID: [id number] Author: Alexis Garcia MD Service: ? Author Type: Physician Type: Progress Notes Filed: 10/15/2022 9:25 AM Note Text: Chief Complaint Patient presents with: Follow Up HPI Juan Andrews is a 72 year old male who presents here today for Above Complaints. Accompanied today by . HTN: Mr. Andrews indicates that he is feeling well and denies any symptoms referable to elevated blood pressure. Specifically denies headache, chest pain, palpitations, dyspnea, and peripheral edema. Patient denies any side effects of his medication(s) and is compliant with their regimen. He does check BP's away from this office with average BP's in the 120/80's range. Juan works out regularly 3-4 times per week with walking and swimming or swim class. He watches his diet for sodium, low fat and low cholesterol most of the time. Last 3 Encounter BP Readings: Date: BP: 10/15/2022 144/76 04/09/2022 132/76 09/19/2021 118/68 PHQ-2 / Depression screen He in the past two weeks denies having felt down, depressed, hopeless or with little interest or pleasure in doing things. C/o bilateral hip pain for the last 2 months without fall or injury. Worst in the morning and feels stiff. Improved with ambulation. Treating with ibuprofen and just started home stretches which helps somewhat. Denies redness, swelling, warmth to touch, bruising. Past medical history, appointments, medications, allergies reviewed. Previous Medical History PAST MEDICAL HISTORY Diagnosis Date Elevated prostate specific antigen (PSA) 11/04/2020 Hypertension Obesity (BMI 30.0-34.9) Previous Surgical History PAST SURGICAL HISTORY Procedure Laterality Date ADENOIDECTOMY PRIMARY Adenoidectomy ARTHRP KNE CONDYLEANDPLATU MEDIALANDLAT COMPARTMENTS 04/15/2006 Knee replacement, total bilateral ARTHRP KNE CONDYLEANDPLATU MEDIALANDLAT COMPARTMENTS Right 2016 REPAIR UMBILICAL HERNIA 2006 repeat RPR UMBILICAL HRNA 5 YRS/> REDUCIBLE 1999 Hernia repair, umbilical >5yr TONSILLECTOMY PRIMARY/SECONDARY Tonsillectomy Family History FAMILY HISTORY Problem Relation Age of Onset Diabetes Mother Arthritis Sister knee relacements Arthritis Sister knee replacements Arthritis Sister knee replacements Arthritis Brother hip replacement Hypertension Brother Peripheral Artery Disease Brother No Known Problems Son No Known Problems Son Glaucoma No Family History Detached Retina No Family History Macular Degen No Family History Blindness No Family History Patient Allergies ALLERGIES Allergen Reactions Seasonal Allergies Cough Current Medications Current Outpatient Medications on File Prior to Visit Medication Sig lisinopril (ZESTRIL, PRINIVIL) 40 mg tablet Take 1 tablet by mouth once daily. hydroCHLOROthiazide (HYDRODIURIL, ESIDRIX) 12.5 mg capsule Take 1 capsule by mouth once daily. No current facility-administered medications on file prior to visit. Social History Social History Tobacco Use Smoking status: Never Smokeless tobacco: Never Vaping Use Vaping Use: Never used Substance Use Topics Alcohol use: Yes Comment: beer 1 to 2 Drug use: Never Review of Symptoms REVIEW OF SYSTEMS GENERAL: No weight loss, malaise or fevers RESPIRATORY: Negative for cough, hemoptysis, wheezing, COPD, dyspnea or shortness of breath CARDIOVASCULAR: Negative for chest pain, leg swelling, hypertension, CHF or palpitations GI: No nausea, vomiting, or diarrhea : No history of dysuria, frequency or incontinence, No difficulty urinating, nocturia > 1 time per night or hematuria SKIN: Negative for lesions, rash, and itching EXAM: BP 138/76 Pulse 80 Resp 16 Wt 104.1 kg (229 lb 9.6 oz) SpO2 94% BMI 35.96 kg/m? General Appearance: Well appearing, alert, in no acute distress, well-hydrated, well nourished.. Skin: Skin color, texture, turgor normal, no suspicious rashes or lesions. Lungs: Lungs clear to auscultation. No wheezing, rhonchi, rales.. Heart: RRR without murmur, gallop, or rubs. No ectopy. Abdomen: Normal abdominal exam, Abdomen soft, non-tender. Bowel sounds normal. No masses, organomegaly. Extremities: No deformities, edema, skin discoloration, clubbing or cyanosis. Good capillary refill. . HIP: Location: Bilateral Range of motion: Limited due to tight muscles. Tenderness over trochanteric bursa: No Pain with movement: Yes, right hip only. Health Maintenance List BP CONTROLLED (<130/80) Never done ADVANCE DIRECTIVE DISCUSSION due on 05/13/2022 DEPRESSION ASSESSMENT due on 05/13/2022 SHINGRIX VACCINE(1 of 2) due on 04/09/2023 ANNUAL PCP TEAM CHRONIC DISEASE VISIT due on 04/09/2023 COLORECTAL CANCER SCREENING due on 04/22/2023 DIABETES SCREEN due on 04/09/2025 LIPID SCREEN due on 04/09/2027 DTAP,TDAP,TD(4 - Td or Tdap) due on 10/12/2029 INFLUENZA Completed HEPATITIS C SCREENING Completed COVID-19 VACCINE Completed (more content not included)... [facility] 10-15-2022 History of Present illness Narrative Chief Complaint Patient presents with: Follow Up HPI Juan Andrews is a 72 year old male who presents here today for Above Complaints. Accompanied today by . HTN: Mr. Andrews indicates that he is feeling well and denies any symptoms referable to elevated blood pressure. Specifically denies headache, chest pain, palpitations, dyspnea, and peripheral edema. Patient denies any side effects of his medication(s) and is compliant with their regimen. He does check BP's away from this office with average BP's in the 120/80's range. Juan works out regularly 3-4 times per week with walking and swimming or swim class. He watches his diet for sodium, low fat and low cholesterol most of the time. Last 3 Encounter BP Readings: Date: BP: 10/15/2022 144/76 04/09/2022 132/76 09/19/2021 118/68 PHQ-2 / Depression screen He in the past two weeks denies having felt down, depressed, hopeless or with little interest or pleasure in doing things. C/o bilateral hip pain for the last 2 months without fall or injury. Worst in the morning and feels stiff. Improved with ambulation. Treating with ibuprofen and just started home stretches which helps somewhat. Denies redness, swelling, warmth to touch, bruising. Past medical history, appointments, medications, allergies reviewed. Previous Medical History PAST MEDICAL HISTORY Diagnosis Date Elevated prostate specific antigen (PSA) 11/04/2020 Hypertension Obesity (BMI 30.0-34.9) Previous Surgical History PAST SURGICAL HISTORY Procedure Laterality Date ADENOIDECTOMY PRIMARY <AGE 13 Adenoidectomy ARTHRP KNE CONDYLE&PLATU MEDIAL&LAT COMPARTMENTS 04/15/2006 Knee replacement, total bilateral ARTHRP KNE CONDYLE&PLATU MEDIAL&LAT COMPARTMENTS Right 2016 REPAIR UMBILICAL HERNIA 2006 repeat RPR UMBILICAL HRNA 5 YRS/> REDUCIBLE 2000 Hernia repair, umbilical >5yr TONSILLECTOMY PRIMARY/SECONDARY <AGE 13 Tonsillectomy Family History FAMILY HISTORY Problem Relation Age of Onset Diabetes Mother Arthritis Sister knee relacements Arthritis Sister knee replacements Arthritis Sister knee replacements Arthritis Brother hip replacement Hypertension Brother Peripheral Artery Disease Brother No Known Problems Son No Known Problems Son Glaucoma No Family History Detached Retina No Family History Macular Degen No Family History Blindness No Family History Patient Allergies ALLERGIES Allergen Reactions Seasonal Allergies Cough Current Medications Current Outpatient Medications on File Prior to Visit Medication Sig lisinopril (ZESTRIL, PRINIVIL) 40 mg tablet Take 1 tablet by mouth once daily. hydroCHLOROthiazide (HYDRODIURIL, ESIDRIX) 12.5 mg capsule Take 1 capsule by mouth once daily. No current facility-administered medications on file prior to visit. Social History Social History Tobacco Use Smoking status: Never Smokeless tobacco: Never Vaping Use Vaping Use: Never used Substance Use Topics Alcohol use: Yes Comment: beer weekends 1 to 2 Drug use: Never Review of Symptoms REVIEW OF SYSTEMS GENERAL: No weight loss, malaise or fevers RESPIRATORY: Negative for cough, hemoptysis, wheezing, COPD, dyspnea or shortness of breath CARDIOVASCULAR: Negative for chest pain, leg swelling, hypertension, CHF or palpitations GI: No nausea, vomiting, or diarrhea : No history of dysuria, frequency or incontinence, No difficulty urinating, nocturia > 1 time per night or hematuria SKIN: Negative for lesions, rash, and itching EXAM: BP 138/76 Pulse 80 Resp 16 Wt 104.1 kg (229 lb 9.6 oz) SpO2 94% BMI 35.96 kg/m General Appearance: Well appearing, alert, in no acute distress, well-hydrated, well nourished.. Skin: Skin color, texture, turgor normal, no suspicious rashes or lesions. Lungs: Lungs clear to auscultation. No wheezing, rhonchi, rales.. Heart: RRR without murmur, gallop, or rubs. No ectopy. Abdomen: Normal abdominal exam, Abdomen soft, non-tender. Bowel sounds normal. No masses, organomegaly. Extremities: No deformities, edema, skin discoloration, clubbing or cyanosis. Good capillary refill. . HIP: Location: Bilateral Range of motion: Limited due to tight muscles. Tenderness over trochanteric bursa: No Pain with movement: Yes, right hip only. Health Maintenance List BP CONTROLLED (<130/80) Never done ADVANCE DIRECTIVE DISCUSSION due on 05/13/2022 DEPRESSION ASSESSMENT due on 05/13/2022 SHINGRIX VACCINE(1 of 2) due on 04/09/2023 ANNUAL PCP TEAM CHRONIC DISEASE VISIT due on 04/09/2023 COLORECTAL CANCER SCREENING due on 04/22/2023 DIABETES SCREEN due on 04/09/2025 LIPID SCREEN due on 04/09/2027 DTAP,TDAP,TD(4 - Td or Tdap) due on 10/12/2029 INFLUENZA Completed HEPATITIS C SCREENING Completed COVID-19 VACCINE Completed PNEUMOCOCCAL: 65+ Completed Data reviewed Component Latest Ref Rng & Units 10/12/2021 04/09/2022 Protein, Total 6.3 - 8.0 g/dL 7.0 6.8 Albumin 3.9 - 4.9 g/dL 4.4 4.3 Calcium 8.5 - 10.2 mg/dL 8.9 9.4 Bilirubin, Total 0.2 - 1.3 mg/dL 0.5 0.4 Alkaline Phosphatase 38 - 113 U/L 66 65 AST 14 - 40 U/L 24 22 ALT 10 - 54 U/L 21 17 Glucose 74 - 99 mg/dL 90 102 (H) BUN 9 - 24 mg/dL 23 16 Creatinine 0.73 - 1.22 mg/dL 0.86 0.71 (L) Sodium 136 - 144 mmol/L 139 141 Potassium 3.7 - 5.1 mmol/L 4.0 4.5 Chloride 97 - 105 mmol/L 104 106 (H) CO2 22 - 30 mmol/L 21 (L) 24 Anion Gap 9 - 18 mmol/L 14 11 eGFR >=60 mL/min/1.73m 93 98 WBC 3.70 - 11.00 k/uL 8.85 RBC 4.20 - 6.00 m/uL 5.29 Hemoglobin 13.0 - 17.0 g/dL 15.6 Hematocrit 39.0 - 51.0 % 47.5 MCV 80.0 - 100.0 fL 89.8 MCH 26.0 - 34.0 pg 29.5 MCHC 30.5 - 36.0 g/dL 32.8 RDW-CV 11.5 - 15.0 % 13.5 Platelet Count 150 - 400 k/uL 218 MPV 9.0 - 12.7 fL 10.1 Absolute nRBC <0.01 k/uL <0.01 Total Cholesterol, Nonfasting <200 mg/dL 166 Triglycerides, Nonfasting <150 mg/dL 77 HDL Cholesterol, Nonfasting >39 mg/dL 53 LDL Cholesterol, Nonfasting <100 mg/dL 98 Non HDL Cholesterol, Nonfasting <130 mg/dL 113 VLDL Cholesterol, Nonfasting <30 mg/dL 15 Total Chol/HDL Ratio, Nonfasting <5.10 mg/dL 3.13 LDL/HDL Ratio, Nonfasting <2.54 mg/dL 1.85 PSA <2.60 ng/mL 4.16 (H) ASSESSMENT/PLAN: 1. Essential hypertension - ICD9: 401.9, ICD10: I10 (primary diagnosis) - Controlled - Continue current medications - Recommend home blood pressure monitoring, to bring results to next visit - Encouraged sodium restriction, DASH or Mediterranean diet - Discussed need for and benefit of weight loss. BMI 35.96 kg/(m^2) - LISINOPRIL 40 MG TABLET - HYDROCHLOROTHIAZIDE 12.5 MG CAPSULE - CBC + DIFF - COMP METABOLIC PANEL 2. Hip pain, bilateral - ICD9: 719.45, ICD10: M25.551, M25.552 Suspect 2/2 OA. Obtain xrays to confirm. Discussed ice/heat, NSAIDs, home exercises, f/u with PT. Recheck in 2 months. - XR HIP BILATERAL 5V PEL/AP/LAT EACH HIP - CONSULT TO PHYSICAL THERAPY - MELOXICAM 15 MG TABLET 3. Obesity (BMI 30.0-34.9) - ICD9: 278.00, ICD10: E66.9 Weight decreasing - Behavioral intervention 4. Elevated prostate specific antigen (PSA) - ICD9: 790.93, ICD10: R97.20 No new urinary symptoms. Recheck PSA. - PSA/PROSTSPECAG DIAG Alexis Garcia MD documented in this encounter [facility] 06-02-2022 Note HNO ID: [id number] Author: Yessenia De La Torre II, LYRIC Service: ? Author Type: HAND FLATWORK FINISHER Type: Progress Notes Filed: 06/02/2022 12:01 PM Note Text: Assessment and Plan H52.03 Hyperopia, bilateral (primary encounter diagnosis) H52.223 Regular astigmatism, bilateral H52.4 Presbyopia Comment: Stable glasses power. Update as desired. D23.112 Benign neoplasm of skin of right lower eyelid Comment: Inclusion cyst. Patient asymptomatic. Monitor for change. D23.121 Benign neoplasm of skin of left upper eyelid Comment: Skin tag. Patient asymptomatic. Monitor for change. H25.13 Senile nuclear cataract, bilateral Comment: Trace cataract in both eyes. Well tolerated at this time. Monitor as instructed. I have confirmed and edited as necessary the relevant ophthalmic history, ROS, and the neuro exam findings as obtained by others. I have seen and examined Juan Andrews. I have discussed the case and the management of this patient's care with the Resident/Fellow, if applicable. I also have reviewed and agree with the assessment and plan as stated above and agree with all of its relevant components. Yessenia De La Torre II, LYRIC [facility] 06-02-2022 Instructions Yessenia De La Torre II, OD - 06/02/2022 12:01 PM EST Assessment and Plan H52.03 Hyperopia, bilateral (primary encounter diagnosis) H52.223 Regular astigmatism, bilateral H52.4 Presbyopia Comment: Stable glasses power. Update as desired. D23.112 Benign neoplasm of skin of right lower eyelid Comment: Inclusion cyst. Patient asymptomatic. Monitor for change. D23.121 Benign neoplasm of skin of left upper eyelid Comment: Skin tag. Patient asymptomatic. Monitor for change. H25.13 Senile nuclear cataract, bilateral Comment: Trace cataract in both eyes. Well tolerated at this time. Monitor as instructed. I have confirmed and edited as necessary the relevant ophthalmic history, ROS, and the neuro exam findings as obtained by others. I have seen and examined Juan Andrews. I have discussed the case and the management of this patient's care with the Resident/Fellow, if applicable. I also have reviewed and agree with the assessment and plan as stated above and agree with all of its relevant components. Yessenia De La Torre II, OD documented in this encounter [facility] 06-02-2022 History of Present illness Narrative Assessment and Plan H52.03 Hyperopia, bilateral (primary encounter diagnosis) H52.223 Regular astigmatism, bilateral H52.4 Presbyopia Comment: Stable glasses power. Update as desired. D23.112 Benign neoplasm of skin of right lower eyelid Comment: Inclusion cyst. Patient asymptomatic. Monitor for change. D23.121 Benign neoplasm of skin of left upper eyelid Comment: Skin tag. Patient asymptomatic. Monitor for change. H25.13 Senile nuclear cataract, bilateral Comment: Trace cataract in both eyes. Well tolerated at this time. Monitor as instructed. I have confirmed and edited as necessary the relevant ophthalmic history, ROS, and the neuro exam findings as obtained by others. I have seen and examined Juan Andrews. I have discussed the case and the management of this patient's care with the Resident/Fellow, if applicable. I also have reviewed and agree with the assessment and plan as stated above and agree with all of its relevant components. Yessenia De La Torre II, OD documented in this encounter [facility] 04-09-2022 Miscellaneous Notes Patient telephoned. Results given. Voices understanding. Elaine Schmidt LPN Please call patient and let him know his blood work is in acceptable limits. Continue current medications. Niesha Koch APRN.PATTY documented in this encounter [facility] 04-09-2022 History of Present illness Narrative Chief Complaint Patient presents with: Physical HPI Juan Andrews is a 72 year old male who presents here today for annual physical. Patient has been in good health without hospitalizations or ER visits. No falls in the last year. HTN: Mr. Andrews indicates that he is feeling well and denies any symptoms referable to elevated blood pressure. Specifically denies headache, chest pain, palpitations, dyspnea, and peripheral edema. Patient denies any side effects of his medication(s) and is compliant with their regimen. He does check BP's away from this office with average BP's in the 130/80's range. Juan gets minimal exercise. Up 5 lbs since last OV. He watches his diet for sodium, low fat and low cholesterol most of the time. Last 3 Encounter BP Readings: Date: BP: 04/09/2022 132/76 09/19/2021 118/68 03/21/2021 150/94 PHQ-2 / Depression screen He in the past two weeks denies having felt down, depressed, hopeless or with little interest or pleasure in doing things. Requesting FOBT for colon cancer screening. Past medical history, appointments, medications, allergies reviewed. Previous Medical History PAST MEDICAL HISTORY Diagnosis Date Elevated prostate specific antigen (PSA) 11/04/2020 Hypertension Obesity (BMI 30.0-34.9) Previous Surgical History PAST SURGICAL HISTORY Procedure Laterality Date ADENOIDECTOMY PRIMARY <AGE 13 Adenoidectomy ARTHRP KNE CONDYLE&PLATU MEDIAL&LAT COMPARTMENTS 04/15/2006 Knee replacement, total bilateral ARTHRP KNE CONDYLE&PLATU MEDIAL&LAT COMPARTMENTS Right 2016 REPAIR UMBILICAL HERNIA 2005 repeat RPR UMBILICAL HRNA 5 YRS/> REDUCIBLE 1999 Hernia repair, umbilical >5yr TONSILLECTOMY PRIMARY/SECONDARY <AGE 13 Tonsillectomy Family History FAMILY HISTORY Problem Relation Age of Onset Diabetes Mother Arthritis Sister knee relacements Arthritis Sister knee replacements Arthritis Sister knee replacements Arthritis Brother hip replacement Hypertension Brother Peripheral Artery Disease Brother No Known Problems Son No Known Problems Son Patient Allergies ALLERGIES Allergen Reactions Seasonal Allergies Cough Current Medications Current Outpatient Medications on File Prior to Visit Medication Sig aspirin, enteric coated (ASPIRIN, ENTERIC COATED) 81 mg EC tablet Take 81 mg by mouth once daily. lisinopril (ZESTRIL, PRINIVIL) 40 mg tablet Take 1 tablet by mouth once daily. hydroCHLOROthiazide (HYDRODIURIL, ESIDRIX) 12.5 mg capsule Take 1 capsule by mouth once daily. No current facility-administered medications on file prior to visit. Social History Social History Tobacco Use Smoking status: Never Smokeless tobacco: Never Substance Use Topics Alcohol use: Yes Comment: beer weekends 1 to 2 Drug use: Never Review of Symptoms REVIEW OF SYSTEMS GENERAL: No weight loss, malaise or fevers HEENT: Negative for frequent or significant headaches, No changes in hearing or vision, no nose bleeds or other nasal problems NECK: Negative for lumps, goiter, pain and significant neck swelling RESPIRATORY: Negative for cough, hemoptysis, wheezing, COPD, dyspnea or shortness of breath CARDIOVASCULAR: Negative for chest pain, leg swelling, hypertension, CHF or palpitations GI: No nausea, vomiting, or diarrhea : No history of dysuria, frequency or incontinence, No difficulty urinating, nocturia > 1 time per night or hematuria MUSCULOSKELETAL: Negative for joint pain or swelling, back pain or muscle pain SKIN: Negative for lesions, rash, and itching EXAM: BP 132/76 Pulse 91 Resp 16 Ht 170.2 cm (5' 7 ) Wt 105.2 kg (232 lb) SpO2 93% BMI 36.34 kg/m [place]/5 General Appearance: Well appearing, alert, in no acute distress, well-hydrated, well nourished.. Skin: Skin color, texture, turgor normal, no suspicious rashes or lesions. Head: Normocephalic, no masses, lesions, tenderness or abnormalities. Eyes: Anicteric sclera. Pupils are equally round and reactive to light. Extraocular movements are intact. . Ears: External ears normal, canals clear. Oropharynx: Lips, mucosa, and tongue normal, teeth and gums normal, oropharynx normal. Neck: Supple, no adenopathy; thyroid symmetric, normal size, no bruits. Lungs: Lungs clear to auscultation. No wheezing, rhonchi, rales.. Heart: RRR without murmur, gallop, or rubs. No ectopy. Abdomen: Normal abdominal exam, Abdomen soft, non-tender. Bowel sounds normal. No masses, organomegaly. Extremities: No deformities, edema, skin discoloration, clubbing or cyanosis. Good capillary refill. . Health Maintenance List SHINGRIX VACCINE(1 of 2) Never done DEPRESSION ASSESSMENT Never done COLORECTAL CANCER SCREENING due on 03/25/2022 ANNUAL PCP TEAM CHRONIC DISEASE VISIT due on 09/19/2022 BP CONTROLLED (<130/80) due on 09/19/2022 LIPID SCREEN due on 10/09/2024 DIABETES SCREEN due on 10/12/2024 DTAP,TDAP,TD(4 - Td or Tdap) due on 10/12/2029 INFLUENZA Completed ADVANCE DIRECTIVE DISCUSSION Completed HEPATITIS C SCREENING Completed COVID-19 VACCINE Completed PNEUMOCOCCAL: 65+ Completed Data reviewed Component Latest Ref Rng & Units 03/25/2021 10/12/2021 Protein, Total 6.3 - 8.0 g/dL 6.5 7.0 Albumin 3.9 - 4.9 g/dL 4.0 4.4 Calcium 8.5 - 10.2 mg/dL 9.2 8.9 Bilirubin, Total 0.2 - 1.3 mg/dL 0.3 0.5 Alkaline Phosphatase 38 - 113 U/L 64 66 AST 14 - 40 U/L 20 24 Glucose 74 - 99 mg/dL 71 (L) 90 BUN 9 - 24 mg/dL 19 23 Creatinine 0.73 - 1.22 mg/dL 0.69 (L) 0.86 Sodium 136 - 144 mmol/L 141 139 Potassium 3.7 - 5.1 mmol/L 4.7 4.0 Chloride 97 - 105 mmol/L 108 (H) 104 CO2 22 - 30 mmol/L 22 21 (L) Anion Gap 9 - 18 mmol/L 11 14 ALT 10 - 54 U/L 21 21 eGFR- >60 eGFR-All Other Races . >60 eGFR >=60 mL/min/1.73m 93 WBC 3.70 - 11.00 k/uL 8.85 RBC 4.20 - 6.00 m/uL 5.29 Hemoglobin 13.0 - 17.0 g/dL 15.6 Hematocrit 39.0 - 51.0 % 47.5 MCV 80.0 - 100.0 fL 89.8 MCH 26.0 - 34.0 pg 29.5 MCHC 30.5 - 36.0 g/dL 32.8 RDW-CV 11.5 - 15.0 % 13.5 Platelet Count 150 - 400 k/uL 218 MPV 9.0 - 12.7 fL 10.1 Absolute nRBC <0.01 k/uL <0.01 PSA <2.60 ng/mL 3.6 (H) 4.16 (H) Occult Blood, Stool Negative Negative ASSESSMENT/PLAN: 1. Annual physical exam - ICD9: V70.0, ICD10: Z00.00 (primary diagnosis) - Counseled on healthy diet and regular exercise - Discussed need for and benefit of weight loss. BMI 36.34 kg/(m^2) - Colorectal cancer screening recommended - agrees to iFOBT testing - Depression screening tool completed and reviewed with patient. Based on score and interview, patient is not at risk for depression and recommended no further intervention at this time. - Follow up for annual exam in one year - COMP METABOLIC PANEL - LIPID PANEL, NONFASTING 2. Essential hypertension - ICD9: 401.9, ICD10: I10 - good control - Continue current medication(s) - Encouraged dietary sodium restriction/DASH diet - Recommended regular aerobic exercise. - Reviewed risks of HTN and principles of treatment - Goal of BP <140/90 - LISINOPRIL 40 MG TABLET - HYDROCHLOROTHIAZIDE 12.5 MG CAPSULE 3. Obesity (BMI 30.0-34.9) - ICD9: 278.00, ICD10: E66.9 Weight increasing - Behavioral intervention 4. Elevated prostate specific antigen (PSA) - ICD9: 790.93, ICD10: R97.20 Last PSA up slightly compared to 6 months prior, but down when compared to 1 year prior. No change in urinary symptoms. Consider repeat in 6 months. 5. Screening for colon cancer - ICD9: V76.51, ICD10: Z12.11 - FECAL OCCULT BLOOD TEST Alexis Garcia MD documented in this encounter [facility] 09-19-2021 History of Present illness Narrative Chief Complaint Patient presents with: 6 Month Exam HPI Juan Andrews is a 71 year old male who presents here today for 6 month follow up. HTN: Mr. Andrews indicates that he is feeling well and denies any symptoms referable to elevated blood pressure. Specifically denies headache, chest pain, palpitations, dyspnea and peripheral edema. Patient denies any side effects of his medication(s) and is compliant with their regimen. He does check BP's away from this office with average BP's in the 130-140/80-90 range. Juan likes to exercise by walking and yard work. He watches his diet for sodium, low fat and low cholesterol most of the time. Last 3 Encounter BP Readings: Date: BP: 09/19/2021 142/82 03/21/2021 150/94 10/31/2020 138/89[BP Seferino average[ Last PSA improved compared to 1 year ago. Denies urinary symptoms including: nocutria>1 time per night, weak stream, straining to urinate, hematuria, dysuria. No family history of prostate cancer. Reviewed advance directive with patient. Thinks he has living will and DPOA at home. Would like to be FULL CODE. Past medical history, appointments, medications, allergies reviewed. Previous Medical History PAST MEDICAL HISTORY Diagnosis Date Elevated prostate specific antigen (PSA) 11/04/2020 Hypertension Obesity (BMI 30.0-34.9) Previous Surgical History PAST SURGICAL HISTORY Procedure Laterality Date ADENOIDECTOMY PRIMARY <AGE 13 Adenoidectomy ARTHRP KNE CONDYLE&PLATU MEDIAL&LAT COMPARTMENTS 04/15/2006 Knee replacement, total bilateral ARTHRP KNE CONDYLE&PLATU MEDIAL&LAT COMPARTMENTS Right 2016 REPAIR UMBILICAL HERNIA 2005 repeat RPR UMBILICAL HRNA 5 YRS/> REDUCIBLE 1999 Hernia repair, umbilical >5yr TONSILLECTOMY PRIMARY/SECONDARY <AGE 13 Tonsillectomy Family History FAMILY HISTORY Problem Relation Age of Onset Diabetes Mother Arthritis Sister knee relacements Arthritis Sister knee replacements Arthritis Sister knee replacements Arthritis Brother hip replacement Hypertension Brother Peripheral Artery Disease Brother No Known Problems Son No Known Problems Son Patient Allergies ALLERGIES Allergen Reactions Seasonal Allergies Cough Current Medications Current Outpatient Medications on File Prior to Visit Medication Sig lisinopril (ZESTRIL, PRINIVIL) 40 mg tablet Take 1 tablet by mouth once daily. hydroCHLOROthiazide 12.5 mg capsule Take 1 capsule by mouth once daily. aspirin, enteric coated (ASPIRIN, ENTERIC COATED) 81 mg EC tablet Take 81 mg by mouth once daily. No current facility-administered medications on file prior to visit. Social History Social History Tobacco Use Smoking status: Never Smoker Smokeless tobacco: Never Used Substance Use Topics Alcohol use: Yes Comment: beer weekends 1 to 2 Drug use: Never Review of Symptoms REVIEW OF SYSTEMS GENERAL: No weight loss, malaise or fevers RESPIRATORY: Negative for cough, hemoptysis, wheezing, COPD, dyspnea or shortness of breath CARDIOVASCULAR: Negative for chest pain, leg swelling, hypertension, CHF or palpitations GI: No nausea, vomiting, or diarrhea SKIN: Negative for lesions, rash, and itching EXAM: BP 118/68 Pulse 89 Resp 18 Wt 102.9 kg (226 lb 12.8 oz) SpO2 96% BMI 34.48 kg/m General Appearance: Well appearing, alert, in no acute distress, well-hydrated, well nourished.. Skin: Skin color, texture, turgor normal, no suspicious rashes or lesions. Lungs: Lungs clear to auscultation. No wheezing, rhonchi, rales.. Heart: RRR without murmur, gallop, or rubs. No ectopy. Abdomen: Normal abdominal exam, Abdomen soft, non-tender. Bowel sounds normal. No masses, organomegaly. Extremities: No deformities, edema, skin discoloration, clubbing or cyanosis. Good capillary refill. . Health Maintenance List BP CONTROLLED (<130/80) Never done SHINGRIX VACCINE(1 of 2) Never done ADVANCE DIRECTIVE DISCUSSION Never done DEPRESSION SCREENING due on 09/20/2021 ANNUAL PCP TEAM CHRONIC DISEASE VISIT due on 03/21/2022 COLORECTAL CANCER SCREENING due on 03/25/2022 DIABETES SCREEN due on 03/25/2024 LIPID SCREEN due on 10/09/2024 DTAP,TDAP,TD(4 - Td or Tdap) due on 10/12/2029 INFLUENZA Completed HEPATITIS C SCREENING Completed PNEUMOVAX AGE 65 AND OVER WITH 5YR LOOKBACK Completed COVID-19 VACCINE Completed MENINGOCOCCAL CONJUGATE Aged Out Data reviewed Component Latest Ref Rng & Units 10/31/2020 03/25/2021 Protein, Total 6.3 - 8.0 g/dL 6.8 6.5 Albumin 3.9 - 4.9 g/dL 4.1 4.0 Calcium 8.5 - 10.2 mg/dL 9.1 9.2 Bilirubin, Total 0.2 - 1.3 mg/dL 0.3 0.3 Alkaline Phosphatase 38 - 113 U/L 71 64 AST 14 - 40 U/L 19 20 Glucose 74 - 99 mg/dL 100 (H) 71 (L) BUN 9 - 24 mg/dL 22 19 Creatinine 0.73 - 1.22 mg/dL 0.78 0.69 (L) Sodium 136 - 144 mmol/L 142 141 Potassium 3.7 - 5.1 mmol/L 4.4 4.7 Chloride 97 - 105 mmol/L 106 (H) 108 (H) CO2 22 - 30 mmol/L 24 22 Anion Gap 9 - 18 mmol/L 12 11 ALT 10 - 54 U/L 21 21 eGFR- >60 >60 eGFR-All Other Races . >60 >60 Hep C Antibody IA Negative Negative PSA Screening 0.00 - 2.59 ng/mL 5.05 (H) PSA <2.6 ng/mL 3.6 (H) Occult Blood, Stool Negative Negative ASSESSMENT/PLAN: 1. Essential hypertension - ICD9: 401.9, ICD10: I10 (primary diagnosis) - good control - Continue current medication(s) - Encouraged dietary sodium restriction/DASH diet - Recommended regular aerobic exercise. - Reviewed risks of HTN and principles of treatment - Goal of BP <140/90 - LISINOPRIL 40 MG TABLET - COMP METABOLIC PANEL - HYDROCHLOROTHIAZIDE 25 MG TABLET - HYDROCHLOROTHIAZIDE 12.5 MG CAPSULE 2. Elevated prostate specific antigen (PSA) - ICD9: 790.93, ICD10: R97.20 Asymptomatic. Recheck PSA and will call with results. If increasing, will have him follow up with urology. - PSA/PROSTSPECAG DIAG - CBC 3. Obesity (BMI 30.0-34.9) - ICD9: 278.00, ICD10: E66.9 Weight decreasing - Behavioral intervention Alexis Garcia MD documented [facility] Annual physical exam- Primary Routine general medical examination at a health care facility Essential hypertension Unspecified essential hypertension Obesity (BMI 30.0-34.9) Obesity, unspecified Elevated prostate specific antigen (PSA) Screening for colon cancer Special screening for malignant neoplasms, colon [facility] Diagnosis Hyperopia, bilateral- Primary Regular astigmatism, bilateral Presbyopia Benign neoplasm of skin of right lower eyelid Benign neoplasm of skin of left upper eyelid Senile nuclear cataract, bilateral [facility] Diagnosis Essential hypertension- Primary Unspecified essential hypertension Hip pain, bilateral Pain in joint, pelvic region and thigh Obesity (BMI 30.0-34.9) Obesity, unspecified Elevated prostate specific antigen (PSA) [facility] Diagnosis Elevated PSA- Primary Elevated prostate specific antigen (PSA) documented in this encounter [facility] note* Diagnosis Hip pain, bilateral Pain in joint, pelvic region and thigh documented in this encounter [facility] note* Diagnosis Primary osteoarthritis of both hips- Primary Primary localized osteoarthrosis, pelvic region and thigh Hip pain, bilateral Pain in joint, pelvic region and thigh Primary hypertension Unspecified essential hypertension Encounter for immunization Need for other specified prophylactic vaccination against single bacterial disease documented in this encounter [facility] note* Diagnosis Primary osteoarthritis of both hips Primary localized osteoarthrosis, pelvic region and thigh documented in this encounter [facility] note* Diagnosis Primary osteoarthritis of right hip- Primary Primary localized osteoarthrosis, pelvic region and thigh Primary osteoarthritis of right hip Primary localized osteoarthrosis, pelvic region and thigh documented in this encounter [facility] note* Diagnosis Primary osteoarthritis of both hips- Primary Primary localized osteoarthrosis, pelvic region and thigh Chronic pain of both hips Class 2 severe obesity due to excess calories with serious comorbidity and body mass index (BMI) of 35.0 to 35.9 in adult documented in this encounter [facility] note* Diagnosis Primary osteoarthritis of right hip- Primary Primary localized osteoarthrosis, pelvic region and thigh documented in this encounter [facility] note* Diagnosis Primary osteoarthritis of right hip- Primary Primary localized osteoarthrosis, pelvic region and thigh documented in this encounter [facility] note* Diagnosis Primary osteoarthritis of right hip- Primary Primary localized osteoarthrosis, pelvic region and thigh Status post total replacement of right hip documented in this encounter [facility] note* Diagnosis Primary osteoarthritis of right hip- Primary Primary localized osteoarthrosis, pelvic region and thigh documented in this encounter [facility] for referral (narrative)* Diagnostic Procedure Only (Routine) - Pending Review Specialty Diagnoses / Procedures Referred By Luan morataya Referred To Contact XR IMAGING Diagnoses Primary osteoarthritis of right hip Procedures XR HIP GENERAL 3V PELV/AP/LAT RIGHT RADEX HIP UNILATERAL WITH PELVIS 2-3 VIEWS Candi Hernandez PA-C [address] [place] [address] [place] [id number] Referral ID Status Reason Start Date Expiration Date Visits Requested Visits Authorized [id number] Pending Review Auto-Generat ed Referral 3 03/28/2024 1 [facility] Diagnostic Procedure Only (Routine) - Pending Review Specialty Diagnoses / Procedures Referred By Contac t Referred To Contact XR IMAGING Diagnoses Primary osteoarthritis of right hip Status post total replacement of right hip Procedures XR HIP GENERAL 3V PELV/AP/LAT RIGHT RADEX HIP UNILATERAL WITH PELVIS 2-3 VIEWS Andressa Marx MD [address] [facility] [place] [place] [address] [place] [address] Referral ID Status Reason Start Date Expiration Date Visits Requested Visits Authorized [id number] Pending Review Auto-Generat ed Referral 3 04/10/2024 1 1 [facility] Summary Purpose Family History No Family History Records FoundNo Family History Records FoundNo Family History Records Found Advance Directives No Advanced Directives Records FoundNo Advanced Directives Records FoundNo Advanced Directives Records Found Reason for Referral Specialty Diagnoses / Procedures Referred By Contac t Referred To Contact [facility] Diagnoses Hip pain, bilateral Procedures CONSULT TO PHYSICAL THERAPY PHYSICAL THERAPY EVALUATION HIGH COMPLEX 45 MINS Alexis Garcia MD [address] [place] [address] [facility] [address] [place] [address] Referral ID Status Reason Start Date Expiration Date Visits Requested Visits Authorized [id number] Pending Review Auto-Generat ed Referral 10/15/2022 10/15/2023 1 1 Specialty Diagnoses / Procedures Referred By Contac t Referred To Contact XR IMAGING Diagnoses Hip pain, bilateral Procedures XR HIP BILATERAL 5V PEL/AP/LAT EACH HIP RADEX HIPS BILATERAL WITH PELVIS MINIMUM 5 VIEWS Alexis Garcia MD [address] [place] [address] [facility] Referral ID Status Reason Start Date Expiration Date V isits Requested Visits Authorized [id number] Closed Auto-Generate d Referral 10/15/2022 11/14/2023 1 1 Specialty Diagnoses / Procedures Referred By Luan morataya Referred To Contact Orthopedics Diagnoses Primary osteoarthritis of both hips Procedures CONSULT TO ORTHOPAEDICS OFFICE/OUTPATIENT FOR[facility], [facility]–1983 MDM 60-74 MINUTES Alexis Garcia MD [address] [place] [address] Referral ID Status Reason Start Date Expiration Date Visits Requested Visits Authorized [id number] Pending Review PCP Requested Referral 12/17/2022 12/17/2023 1 1 Additional Source Comments (unrecognized sect ion and content) No Status Records FoundNo Status Records FoundNo Status Records Found INFORMATION SOURCE (unrecogn ized section and content) DATE CREATED AUTHOR AUTHOR'S ORGANIZ ATION 05/05/2023 [facility] DATE CREATED AUTHOR AUTHOR'S ORGANIZ ATION 05/28/2023 [facility] Source Comments (unrecognize d section and content) In the event this informatio n is protected by the Federal Confidentiality of Alcohol and Drug Abuse Patient Records regulations: The Federal rules restrict any use of the information to criminally investigate or prosecute any alcohol or drug abuse patient.[facility] event this information is protected by the Federal Confidentiality of Alcohol and Drug Abuse Patient Records regulations: The Federal rules restrict any use of the information to criminally investigate or prosecute any alcohol or drug abuse patient.[facility] the event this information is protected by the Federal Confidentiality of Alcohol and Drug Abuse Patient Records regulations: The Federal rules restrict any use of the information to criminally investigate or prosecute any alcohol or drug abuse patient.[facility] the event this information is protected by the Federal Confidentiality of Alcohol and Drug Abuse Patient Records regulations: The Federal rules restrict any use of the information to criminally investigate or prosecute any alcohol or drug abuse patient.[facility] the event this information is protected by the Federal Confidentiality of Alcohol and Drug Abuse Patient Records regulations: The Federal rules restrict any use of the information to criminally investigate or prosecute any alcohol or drug abuse patient.[facility] the event this information is protected by the Federal Confidentiality of Alcohol and Drug Abuse Patient Records regulations: The Federal rules restrict any use of the information to criminally investigate or prosecute any alcohol or drug abuse patient.[facility] the event this information is protected by the Federal Confidentiality of Alcohol and Drug Abuse Patient Records regulations: The Federal rules restrict any use of the information to criminally investigate or prosecute any alcohol or drug abuse patient.[facility] the event this information is protected by the Federal Confidentiality of Alcohol and Drug Abuse Patient Records regulations: The Federal rules restrict any use of the information to criminally investigate or prosecute any alcohol or drug abuse patient.[facility] the event this information is protected by the Federal Confidentiality of Alcohol and Drug Abuse Patient Records regulations: The Federal rules restrict any use of the information to criminally investigate or prosecute any alcohol or drug abuse patient.[facility] the event this information is protected by the Federal Confidentiality of Alcohol and Drug Abuse Patient Records regulations: The Federal rules restrict any use of the information to criminally investigate or prosecute any alcohol or drug abuse patient.[facility] the event this information is protected by the Federal Confidentiality of Alcohol and Drug Abuse Patient Records regulations: The Federal rules restrict any use of the information to criminally investigate or prosecute any alcohol or drug abuse patient.[facility] the event this information is protected by the Federal Confidentiality of Alcohol and Drug Abuse Patient Records regulations: The Federal rules restrict any use of the information to criminally investigate or prosecute any alcohol or drug abuse patient.[facility] the event this information is protected by the Federal Confidentiality of Alcohol and Drug Abuse Patient Records regulations: The Federal rules restrict any use of the information to criminally investigate or prosecute any alcohol or drug abuse patient.[facility] the event this information is protected by the Federal Confidentiality of Alcohol and Drug Abuse Patient Records regulations: The Federal rules restrict any use of the information to criminally investigate or prosecute any alcohol or drug abuse patient.[facility] the event this information is protected by the Federal Confidentiality of Alcohol and Drug Abuse Patient Records regulations: The Federal rules restrict any use of the information to criminally investigate or prosecute any alcohol or drug abuse patient.[facility] the event this information is protected by the Federal Confidentiality of Alcohol and Drug Abuse Patient Records regulations: The Federal rules restrict any use of the information to criminally investigate or prosecute any alcohol or drug abuse patient.[facility] the event this information is protected by the Federal Confidentiality of Alcohol and Drug Abuse Patient Records regulations: The Federal rules restrict any use of the information to criminally investigate or prosecute any alcohol or drug abuse patient.[facility] the event this information is protected by the Federal Confidentiality of Alcohol and Drug Abuse Patient Records regulations: The Federal rules restrict any use of the information to criminally investigate or prosecute any alcohol or drug abuse patient.[facility] the event this information is protected by the Federal Confidentiality of Alcohol and Drug Abuse Patient Records regulations: The Federal rules restrict any use of the information to criminally investigate or prosecute any alcohol or drug abuse patient.[facility] the event this information is protected by the Federal Confidentiality of Alcohol and Drug Abuse Patient Records regulations: The Federal rules restrict any use of the information to criminally investigate or prosecute any alcohol or drug abuse patient.[facility] the event this information is protected by the Federal Confidentiality of Alcohol and Drug Abuse Patient Records regulations: The Federal rules restrict any use of the information to criminally investigate or prosecute any alcohol or drug abuse patient.[facility] Reason for Visit (unrecogniz ed section and content) Reason Comments Physical Reason Comments Results Reason Comments Yearly Exam Reason Comments Follow Up Reason Onset Date Comments Refill Request 11/29/2022 Reason Comments Follow Up Hip pain Reason Comments New Pain Specialty Diagnoses / Procedures Referred By Contac t Referred To Contact Orthopedics Diagnoses Primary osteoarthritis of both hips Procedures CONSULT TO ORTHOPAEDICS OFFICE/OUTPATIENT NEW HIGH MDM 60-74 MINUTES Alexis Garcia MD [address] [place] [address] Referral ID Status Reason Start Date Expiration Date Visits Requested Visits Authorized [id number] Pending Review PCP Requested Referral 12/17/2022 12/17/2023 1 1 Reason Comments Patient Question Orders Reason Comments Schedule Surgery Reason Comments Pre-Op Teaching Reason Comments FMLA Paperwork Reason Comments Pain Wants to discuss a T MCDOWELL - right hip first Pain Reason Comments Post Op Reason Comments Post Op 5 weeks 5 days post op Right GUSTAVO Care Teams (unrecognized sec tion and content) Process Control Engineer Relationship Specialty Start Date End Date Alexis Garcia MD [address] [place], [place] [id number] PCP - General Family Medicine 03/30/20 Process Control Engineer Relationship Specialty Start Date End Date Alexis Garcia MD [address] [place] [address] PCP - General Family Medicine 03/30/20 Process Control Engineer Relationship Specialty Start Date End Date Alexis Garcia MD [address] [facility] [place] [address] PCP - General Family Medicine 03/30/20 Process Control Engineer Relationship Specialty Start Date End Date Alexis Garcia MD [address] [place] [address] PCP - General Family Medicine 03/30/20 Process Control Engineer Relationship Specialty Start Date End Date Alexis Garcia MD [address] [place] [address] PCP - General Family Medicine 03/30/20 Process Control Engineer Relationship Specialty Start Date End Date Alexis Garcia MD [address] [place] [address] PCP - General Family Medicine 03/30/20 Process Control Engineer Relationship Specialty Start Date End Date Alexis Garcia MD [address] [place] [address] PCP - General Family Medicine 03/30/20 Process Control Engineer Relationship Specialty Start Date End Date Alexis Garcia MD [address] [place] [address] PCP - General Family Medicine 03/30/20 Process Control Engineer Relationship Specialty Start Date End Date Alexis Garcia MD [address] [place] [address] PCP - General Family Medicine 03/30/20 Process Control Engineer Relationship Specialty Start Date End Date Alexis Garcia MD [address] [place] [address] PCP - General Family Medicine 03/30/20 Process Control Engineer Relationship Specialty Start Date End Date Alexis Garcia MD [address] [place] [address] PCP - General Family Medicine 03/30/20 Myron Best, [facility] [address] [place] [address] Specialty Online Trader Orthopedics 01/31/23 04/01/23 Process Control Engineer Relationship Specialty Start Date End Date Alexis Garcia MD [address] [place] [address] PCP - General Family Medicine 03/30/20 Myron Best, [facility] [address] [place] [address] Specialty Online Trader Orthopedics 01/31/23 04/01/23 Process Control Engineer Relationship Specialty Start Date End Date Alexis Garcia MD [address] [place] [address] PCP - General Family Medicine 03/30/20 Denny Bestin, [facility] [address] [place] [address] Specialty Online Trader Orthopedics 01/31/23 04/01/23 Process Control Engineer Relationship Specialty Start Date End Date Alexis Garcia MD [address] [place] [address] PCP - General Family Medicine 03/30/20 Denny Bestin, [facility] [address] [place] [address] Specialty Online Trader Orthopedics 01/31/23 04/01/23 Process Control Engineer Relationship Specialty Start Date End Date Alexis Garcia MD [address] [place] [address] PCP - General Family Medicine 03/30/20 Denny Bestin, [facility] [address] [place] [address] Specialty Online Trader Orthopedics 01/31/23 04/01/23 Process Control Engineer Relationship Specialty Start Date End Date Alexis Garcia MD [address] [place] [address] PCP - General Family Medicine 03/30/20 SissenDennyin, [facility] [address] [place] [address] Specialty Online Trader Orthopedics 01/31/23 04/01/23 Process Control Engineer Relationship Specialty Start Date End Date Alexis Garcia MD [address] [place] [address] PCP - General Family Medicine 03/30/20 KarynsenDennyin, [facility] [address] [place] [address] Specialty Online Trader Orthopedics 01/31/23 04/01/23 Process Control Engineer Relationship Specialty Start Date End Date Alexis Garcia MD [address] [place] [address] PCP - General Family Medicine 03/30/20 Myron Best [facility] [address] [place] [address] Specialty Online Trader Orthopedics 01/31/23 04/01/23 Process Control Engineer Relationship Specialty Start Date End Date Alexis Garcia MD [address] [place] [address] PCP - General Family Medicine 03/30/20 FOR RECORDS PERTAINING TO PATIENTS WHO ARE OR HAVE BEEN ENROLLED IN A CHEMICAL DEPENDENCY/SUBSTANCEABUSE PROGRAM, SOME INFORMATION MAY BE OMITTED. This clinical summary was aggregated from multiple sources. Caution should be exercised in using it in the provision of clinical care. This summary normalizes information from multiple sources, and as a consequence, information in this document may materially change the coding, format and clinical context of patient data. In addition, data may be omitted in some cases. CLINICAL DECISIONS SHOULD BE BASED ON THE PRIMARY CLINICAL RECORDS. [employer] provides no warranty or guarantee of the accuracy or completeness of information in this document.
== END 2023-06-05 17:25 | disposition home or self-care (01) ==
LOC: ED 17:07
PROVIDERS: Emergency Provider Emergency Medicine; PCP Family Medicine; Visit Provider Emergency Medicine
DX: I82.402 Acute embolism and thrombosis of unspecified deep veins of left lower extremity (principal); Z96.641 Presence of right artificial hip joint
CPT/HCPCS: 99282

== ENCOUNTER → 2024-01-08 | Outpatient (CLI) | payer MEDICARE, SELFPAY ==
--- NOTE | 2024-01-08 12:30 | CT_ITS ---
CT LEFT LOWER EXTREMITY WITH 3-D IMAGING CLINICAL INDICATION: templating for left GUSTAVO TECHNIQUE: Axial CT images of the LEFT lower extremity was performed without IV contrast material. Coronal and sagittal reformats as well as 3D reformats were provided. The protocol utilizes one or more of the following dose reduction techniques: automated exposure control, adjustment of mA and/or kV according to patient size,and/or use of iterative reconstruction technique. RADIATION DOSAGE (If Supplied By Facility): CTDIvol = ( 14.96 ) mGy, DLP = ( 918.92 ) mGycm COMPARISON: No relevant prior comparison study available FINDINGS: Bones: Imaging of the left hip joint was obtained. There is a marked degree of joint space narrowing with subchondral cysts in the acetabulum and femoral head. An element of avascular necrosis should be ruled out. The patient is status post left total hip replacement. Imaging of both knee joints was obtained. The patient is status post total knee replacement bilaterally. There is good alignment. Soft Tissues: The deep soft tissue structures are unremarkable. The superficial soft tissues are unremarkable without evidence of edema, hematoma, or foreign body. 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 Status post right hip replacement and bilateral knee replacement. Electronically Signed: Michael Martel MD at 14:35 EDT ,
== END | disposition home or self-care (01) ==
PROVIDERS: PCP Family Medicine; Referring Provider Orthopaedic Surgery; Visit Provider Orthopaedic Surgery
DX: M16.12 Unilateral primary osteoarthritis, left hip (principal)
CPT/HCPCS: 73700; Q9967

== ENCOUNTER → 2024-01-09 | Outpatient (CLI) | payer MEDICARE, SELFPAY ==
--- NOTE | 2024-01-09 09:56 | STRESSREP ---
Stress Test Report Date: 01/09/2024 Procedure: Pharmacologic stress nuclear imaging study Indications: Preoperative evaluation Consent: Per the patient Procedure: The patient underwent pharmacologic (Regadenoson 0.4mg ) evaluation with a peak heart rate of 83 beats per minute (56%predicted maximal heart rate) and a peak blood pressure of 136/86 mmHg. The baseline ECG demonstrated sinus rhythm. The peak pharmacologic ECG demonstrated no ischemic changes. Rare PVC noted. There was no complaint of chest discomfort during pharmacologic infusion or recovery. The patient was injected with 14.3 millicuries of technetium 99m Cardiolite and subsequently rest SPECT Cardiolite nuclear imaging was obtained in the horizontal long, vertical long, and short axis views. The patient underwent pharmacologic (Regadenoson) evaluation. The patient was injected with 45.0 millicuries of technetium 99m Cardiolite and subsequently stress SPECT Cardiolite nuclear imaging was obtained in the horizontal long, vertical long, and short axis views. A gated Cardiolite study at peak stress was obtained. The examination was stopped secondary to completion of protocol. Rest and stress SPECT Cardiolite nuclear imaging status post realignment, normalization, and attenuation correction demonstrate no fixed or reversible perfusion defects. There is end systolic thickening and brightening. The gated studies revealed mildly dilated left ventricle with hypokinesis of the inferior wall. The reported LVEF is 46%. Impression: 1. Pharmacologic (Regadenoson) evaluation 2. Peak pharmacologic ECG with no ischemic changes. 3. Rare PVC noted. 5. Rest and stress SPECT Cardiolite nuclear imaging demonstrate relative uniform tracer uptake and myocardial perfusion appearing within normal limits. 6. Gated studies showed mildly dilated left ventricle with mild LV systolic dysfunction with LVEF 46%. Inferior hypokinesis. This note was generated with [employer] software. It may contain incorrect words, spelling, and punctuation that were not noted in checking the note before signing.
== END | disposition home or self-care (01) ==
PROVIDERS: PCP Family Medicine; Referring Provider Nurse Practitioner Primary Care; Visit Provider Nurse Practitioner Primary Care
DX: Z13.6 Encounter for screening for cardiovascular disorders (principal); R94.31 Abnormal electrocardiogram [ECG] [EKG]
CPT/HCPCS: 78452; 93017; A9500; A4216; J2785

== ENCOUNTER 2024-01-21 14:11 | Inpatient (IN) | payer MEDICARE, SELFPAY ==
--- NOTE | 2024-01-08 12:48 | EKG12_ITS ---
Test Reason : PREOP Blood Pressure : / mmHG Vent. Rate : 091 BPM Atrial Rate : 091 BPM P-R Int : 202 ms QRS Dur : 102 ms QT Int : 378 ms P-R-T Axes : 029 -20 008 degrees QTc Int : 464 ms Normal sinus rhythm Normal ECG Confirmed by Alejandro Simmons ([id number]), editor publications EMILIA PINEDA ([id number]) on 01/10/2024 6:38:44 AM Referred By: Carlito Gamino Confirmed By:Alejandro Simmons
[2024-01-08 14:07] LABS: Absolute Lymphocyte Count 1.76 X10^3/uL (0.83-4.51); Absolute Neutrophil Count 5.2 X10^3/uL (2.0-7.7); Basophil# 0.04 X10^3/uL; Basophil% 0.5 % (0-1); Eosinophil# 0.53 X10^3/uL; Eosinophils% 6.6 % (0-5); Hematocrit 45.2 % (40-54); Hemoglobin 14.8 g/dL (13.0-16.5); Lymphocyte # 1.76 X10^3/ul (0.83-4.51); Lymphocyte % 21.8 % (19-41); Mean Corp Hgb Conc 32.7 g/dL (32-36); Mean Corpuscular Volume 88.5 fL (80-94); Mean Platelet Vol. 9.5 fl (6.2-12.0); Monocyte# 0.57 X10^3/uL; NRBC Flagged by Analyzer 0 % (0-5); Neutrophil # 5.16 X10^3/uL (2.7-7.7); Neutrophil % 63.7 % (47-70); Platelet Count 229 K/mm3 (150-450); RBC Distribution Width CV 13.2 % (11.6-14.6); RBC Distribution Width SD 42.8 fl (35.1-43.9); Red Blood Count 5.11 M/mm3 (4.6-6.2); White Blood Count 8.1 K/mm3 (4.4-11.0)
[2024-01-08 14:17] LABS: International Normalized Ratio 1.1; Prothrombin Time (Protime)PT. 13.9 SECONDS (11.7-14.9)
[2024-01-08 14:18] LABS: Partial Thromboplast Time 27.1 Seconds (24.1-36.2)
[2024-01-08 14:44] LABS: Anion Gap 8 (5-15); BUN 13 mg/dL (7-18); Calcium,Total 9.2 mg/dL (8.5-10.1); Chloride 104 mmol/L (98-107); Creatinine, Serum 0.65 mg/dL (0.70-1.30); EST Glomerular Filtration Rate 128 mL/min (>60); Est Glom Filt Rate - Afr Amer 155 mL/min (>60); Glucose 97 mg/dL (74-106); Potassium 3.6 mmol/L (3.5-5.1); Sodium Level 136 mmol/L (136-145)
[2024-01-08 14:44] LABS: Magnesium 2.5 mg/dL (1.6-2.6)
[2024-01-08 16:06] LABS: Hemoglobin A1c 5.4 % (3.8-5.6)
[2024-01-10 08:12] LABS: Fructosamine 247 umol/L (0-285)
[2024-01-21] VITALS (14 sets, daily range): BP systolic 104–153; BP diastolic 60–96; PULSE 18–88; RESP 16–20; TEMP 36.2–36.9; O2SAT 92–97; BMI 39.3
[2024-01-21] MEDS: Magnesium 1 GM over 15 mins IV (09:00)
[2024-01-21] MEDS: Lactated Ringers 1,000 ML 999 ML IV (09:00)
--- NOTE | 2024-01-21 09:18 | PRE.ANES_ITS ---
ASA Classification* ASA Classification ASA Classification: 3 Assessment & Plan Anesthesia* Anesthesia Assessment Anesthesia Assessment: Discussed sedation and/or anesthesia options, risks, benefits, and alternatives with patient/parents/legal guardian/POA. Questions invited. The patient/parents/legal guardian/POA seems to understand and agrees to proceed with anesthesia plan. Reviewed the physical assessment, medical history, allergy history and patient home medications list prior to surgery/procedure/anesthetic and documented any changes. Performed airway and anesthesia risk assessments. Anesthesia Type Anesthesia Type: Spinal (see written pre anesthesia record for full assessment) Anesthesia Focused Assessment* Airway Assessment Mouth opens: >3 cm Mallampati Score: III Focused Labs Anesthesia Preop lab: CBC WBC 8.1 K/mm3 (4.4-11.0) 01/08/24 13:22 RBC 5.11 M/mm3 (4.6-6.2) 01/08/24 13:22 Hgb 14.8 g/dL (13.0-16.5) 01/08/24 13:22 Hct 45.2 % (40-54) 01/08/24 13:22 Plt Count 229 K/mm3 (150-450) 01/08/24 13:22 CHEMISTRY Potassium 3.6 mmol/L (3.5-5.1) 01/08/24 13:22 Sodium 136 mmol/L (136-145) 01/08/24 13:22 Magnesium 2.5 mg/dL (1.6-2.6) 01/08/24 13:21 BUN 13 mg/dL (7-18) 01/08/24 13:22 Creatinine 0.65 mg/dL (0.70-1.30) L 01/08/24 13:22 Glucose 97 mg/dL (74-106) 01/08/24 13:22 COAG PT 13.9 SECONDS (11.7-14.9) 01/08/24 13:22 Pre-Assessment Diagnosis/Proposed Procedure Planned Operative Procedure(s): (L) Left Total Hip Replacement Robotic Arm Assisted Anesthesia History 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 When Was Last Pacemaker Check QUESTION #4 FULL TEXT: You/Your Family Experience fever (hyperthermia) with Anesthesia Last Oral Intake Last Oral intake: Last Oral Intake NPO since Meds taken in AM with sips of water? Meds patient instructed to take am of surgery PONV PONV - foreclosure clerk: PONV - foreclosure clerk Female No 01/06/24 12:08 HX of Motion Sickness No 01/06/24 12:08 HX of N/V After Surgery No 01/06/24 12:08 Non-Smoker Yes 01/06/24 12:08 Duration of Surgery greater Yes 01/06/24 12:08 than 60 minutes Number of Risk Factors 2 01/06/24 12:08 PONV Score Moderate Risk 01/06/24 12:08 Height & Weight Height & Weight: Anesthesia: Height & Weight Height 5 ft 7 in 01/20/24 05:50 Weight: 111.13 kg 01/20/24 05:50 Respiratory Assessment Respiratory Assessment - foreclosure clerk: Respiratory Tract Infection Hx - foreclosure clerk Hx Respiratory Tract Infection No 01/06/24 12:08 STOP Sleep Apnea STOP Sleep Apnea - foreclosure clerk: STOP Sleep Apnea - foreclosure clerk Hx Hypertension No 01/06/24 12:08 Hx Sleep Apnea No 01/06/24 12:08 CPAP BIPAP Do you snore loudly (louder Yes 01/06/24 12:08 than talking or can be heard Do you often feel tired/ No 01/06/24 12:08 fatigued/ sleepy during daytime? Has anyone observed you stop No 01/06/24 12:08 breathing during sleep? STOP Results Negative 01/06/24 12:08 QUESTION #5 FULL TEXT : Do you snore loudly (louder than talking or can be heard through closed doors)? 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 Specify any problems Hx of Preganancy in last 3 N/A 01/06/24 12:08 Months Nurse Filling Out Transfusion VCHRISTIN 01/06/24 12:08 & Questions: Date: 01/06/24 01/06/24 12:08 Time: 12:16 01/06/24 12:08 Patient unable to answer at this time (ie. confused, unrespo /Reproduction History /Reproductive History - foreclosure clerk: /Reproductive Hx- foreclosure clerk Hx Now Gestational Age (in weeks): EDC: Hx Hx Para Hx Section SAB Active Medications Active Medications: Current Medications Generic Name Dose Route Start Last Admin Trade Name Freq PRN Reason Stop Dose Admin Acetaminophen 1,000 mg 01/21/24 10:30 Acetaminophen 500 Mg Tablet PO 01/21/24 10:31 X1 ONE Celecoxib 400 mg 01/21/24 10:30 Celecoxib 200 Mg Capsule PO 01/21/24 10:31 X1 ONE Dexamethasone Sodium Phosphate 10 mg 01/21/24 10:30 Dexamethasone 10 Mg/Ml Vial IV 01/21/24 10:31 X1 ONE Gabapentin 600 mg 01/21/24 10:30 Gabapentin 600 Mg Tablet PO 01/21/24 10:31 X1 ONE Lactated Ringer's 1,000 mls @ 999 mls/hr 01/21/24 10:30 IV 01/21/24 11:30 .Q1H1M RONAN Cefazolin Sodium 3 gm/ Sodium 115 mls @ 150 mls/hr 01/21/24 10:30 Chloride IV 01/21/24 11:15 PREOP ONE Lactated Ringer's 1,000 mls @ 100 mls/hr 01/21/24 10:30 IV 01/21/24 20:29 .Q10H RONAN Lactated Ringer's 1,000 mls @ 125 mls/hr 01/21/24 10:30 IV 09/10/24 18:29 .Q8H RONAN Tranexamic Acid 2,000 mg/ 120 mls @ 660 mls/hr 01/21/24 10:30 Sodium Chloride IV 01/21/24 10:40 X1 ONE Insulin Human Lispro 1 - 6 unit 01/21/24 10:30 Insulin Lispro 100 Unit/Ml Insuln.Pen SC 01/21/24 16:30 Q4H PRN PRN BG>/= 180, SEE PROTOCOL Protocol Scopolamine HBr 1 patch 01/21/24 10:30 Scopolamine 1mg/72hr Patch TD 01/21/24 10:31 X1 ONE PFSH Medical History Wears hearing aid Wears glasses Walker as ambulation aid Arthritis High cholesterol Non-smoker Shortness of breath on exertion History of pain when walking History of echocardiogram History of stress test Hypertension Edema DVT (deep venous thrombosis) Home Medications ?Medication ?Instructions ?Recorded ?Last Taken ?Type hydrochlorothiazide 12.5 mg capsule 12.5 mg PO DAILY BP 06/19/23 Unknown History lisinopril 40 mg tablet 40 mg PO DAILY BP 06/19/23 Unknown History multivitamin 1 tab PO DAILY SUPPLEMENT 06/19/23 Unknown History atorvastatin 20 mg tablet 20 mg PO QDAY CHOLESTEROL 12/11/23 Unknown History aspirin 81 mg tablet,delayed 81 mg PO DAILY BLOOD THINNER 01/06/24 Unknown History release Allergy/AdvReac Type Severity Reaction Status Date / Time No Known Allergies Allergy Verified 01/06/24 11:46 Surgical History History of total right knee replacement History of total left knee replacement History of umbilical hernia repair History of total right hip arthroplasty Social History Smoking Status: Never smoker alcohol intake: never do you feel safe at home: Yes Review of Systems (Anesthesia) ROS Narrative System reviewed and no additional complaints, except as documented.
[2024-01-21] MEDS: Scopolamine 1mg/72hr Patch 1 PATCH TD (09:53)
[2024-01-21] MEDS: Celecoxib 200 MG Capsule 400 MG PO (09:53)
[2024-01-21] MEDS: Acetaminophen 500 MG Tablet 1000 MG PO ×2 (09:53→21:39)
[2024-01-21] MEDS: Gabapentin 600 MG Tablet PO (09:54)
--- NOTE | 2024-01-21 10:25 | HP.PCM_ITS ---
History and Physical Date of Admission: 01/21/24 [facility] [address] [place] [address] OFFICE VISIT Date of Service: 12/11/23 MR#: [id number] Acct: [id number] Name: JUAN ANDREWS Rep #: [id number] : 1950 Provider: Dr. Carlito Gamino DO Age/Sex: 73/M [place] [facility] [place]: Signed Intake Vital Signs 06/19/2409:35 12/10/2409:17 Height 5 ft 7 in 5 ft 7 in Weight: 233 lb 245 lb 4 oz BMI 36.5 38.4 Intake Visit Reasons: LEFT HIP Chief Complaint: Left hip pain Accompanied by: Is patient in pain?: Yes Pain scale (1-10): 7 Allergies No Known Allergies Allergy (Verified 12/11/23 10:19) Medications ?Medication ?Instructions ?Recorded ?Confirmed ?Type hydrochlorothiazide 12.5 mg capsule 12.5 mg PO DAILY 06/19/23 12/11/23 History lisinopril 40 mg tablet 40 mg PO DAILY 06/19/23 12/11/23 History multivitamin 1 tab PO DAILY 06/19/23 12/11/23 History atorvastatin 20 mg tablet 20 mg PO QDAY 12/11/23 12/11/23 History Have you fallen in the past year?: [facility] History Hypertension Edema DVT (deep venous thrombosis) Surgical History History of umbilical hernia repair History of total right hip arthroplasty Social History Smoking Status: Never smoker alcohol intake: never do you feel safe at home: Yes HPI LEFT HIP Details: This documentation accurately reflects the service provided and the decisions made by me, Dr. Carlito Gamino, 12/11/23 0743. Part of today?s visit was documented by [ ], acting as scribe. JUAN ANDREWS is a 73 year old M here today for further discussions of his left hip arthrosis. Last office visit 06/19/2023 patient had developed a left lower extremity large DVT after his right total hip arthroplasty and was currently being treated with Eliquis. Patient was cleared yesterday with Dr Garcia at [facility] that he can come off his Eliquis that he was on for a DVT. Patient had a Doppler done yesterday. He continues to have significant symptoms in regards to his left hip. He did not do well going home after his right hip was done in 2022 by another surgeon. He did develop a blood clot he was not on any postoperative anticoagulant. Ortho Exam General General: Yes no acute distress and Yes well groomed Neurologic: Yes alert and Yes oriented x3 Psychologic: Yes reasonable and appropriate Left Hip Skin/Wound: No Ecchymosis, No soft tissue swelling and No Erythema Hip: Absent eccymosis, soft tissue swelling, erythema or tender to palpate - internal rotation @90 degree flexion: 3 degrees external rotation @90 degree extension: 20 degrees Special Tests: No TTP Greater Troch, TTP Greater sciatic notch or Illiotibial band tenderness Homans Sign: No HIP: some edema into the leg Mild folliculitis around the hip pain with external rotation and crepitation internal rotation with pain No gross motor or sensory deficits left lower extremity He is very stiff in his back. Head: Normocephalic Atraumatic Chest: symmetrical rise, non-labored breathing, no audible wheeze Abdomen: no guarding, non-rigid Supplemental Info 12/10/2023 Doppler ultrasound report [facility]: Bilateral lower extremity Doppler was negative for blood clots he does have chronic changes related to the previous blood clot on the left side 06/19/2023 x-ray left hip: Advanced hip arthrosis with shortening of noted there is bilateral sacroiliac joint arthrosis with a degenerative scoliosis 06/19/2023 x-ray lumbar spine: There is advanced multilevel degenerative changes of the lumbar spine particularly L5-S1 with significant posterior osteophytes, with a degenerative scoliosis. Coding Level of Care Code Off vis,est,level 4 Diagnoses Deep vein thrombosis (DVT) of popliteal vein of left lower extremity, unspecified chronicity I82.432 Affected thrombotic vein of extremity: popliteal Chronicity: unspecified Primary osteoarthritis of left hip M16.12 Osteoarthritis type: primary Assessment and Plan Assessment and Plan (1) Left leg DVT: Status: Acute Qualifiers: Affected thrombotic vein of extremity: popliteal Chronicity: unspecified Qualified Code(s): I82.432 - Acute embolism and thrombosis of left popliteal vein (2) Degenerative joint disease of left hip: Status: Acute Qualifiers: Osteoarthritis type: primary Qualified Code(s): M16.12 - Unilateral primary osteoarthritis, left hip Plan Patient is now allowed to DC Eliquis as his left lower extremity DVT has cleared according to Doppler ultrasound report. To recall patient developed DVT after his right total hip arthroplasty in 2022 by another surgeon. He states he was not put on any blood thinner postoperatively for DVT prophylaxis. Considering he had developed such a large DVT after surgery if he does proceed with total hip arthroplasty we will treat him with DVT prophylaxis for 35 days postoperatively. Patient would like to precede with left GUSTAVO. Spoke with Patient about once again risk benefits alternatives of surgical and nonsurgical intervention were reviewed including risk of surgery which include but not limited to bleeding, infection, nerve, foot drop, artery and/or tissue damage, fracture, VTE, leg length discrepancy, dislocation, need for hip precautions, continued pain and expected post-operative course. He had a very difficult time in his recovery after his right total hip after he was sent home from the hospital patient and family requesting that he be admitted to the TCU prior to returning home. His inability to ambulate well after his last surgery may have contributed to his development of his DVT so he he would benefit much from inpatient therapy to help keep him ambulatory posto peratively to minimize the risk of another postoperative DVT. In addition there is a stair required to get to the house. We will request this to be an admission procedure. After discharge from the hospital he can be set up with outpatient physical therapy closer to his home. He will need medical clearance. Tentative surgery date January 21, 2024, admission. We discussed robotic technology and the need to get a CT scan preoperatively to perform the MAKOplasty robotic hip replacement. All questions answered. Patient in agreement of plan. Follow up in 2 weeks post op or sooner if pain, swelling, numbness or associated symptoms, or concerns develop. Clinical Quality Measures Falls Risk Screening/Assistive Devices Have you fallen in the past year?: Yes 12/11/23 1125 <Electronically signed by Carlito Gamino DO> Date Carlito Gamino DO I have examined the patient and the H&P has been reviewed. There are no clinical changes since date of exam.
--- NOTE | 2024-01-21 10:30 | HIP_PTH ---
PATIENT: JUAN ANDREWS LOC: MS3 U#:[id number] AGE/SX: 73/M ROOM: [facility] [place] RE01/21/[address]: Dr. Carlito Gamino DO : 1950 BED: 1 DIS: 01/23/2024 SPEC #: [id number] RECD: 01/21/24 18:01 STATUS: VICTORINO REBo #: [id number] VINCENZO: 01/21/24 10:[address]: Carlito Gamino DEPT: SURGICAL PATHOLOGY RECD BY: Sly Villanueva ENTERED: 01/22/24 09:12 SP TYPE: TOTAL HIP OTHR DR: Dr. Osiel Garcia MD Tissues: Hip, NOS Procedures: Decalcification bone/plaque Surgery Specimen Level IV HEADER OPERATION: Left total hip replacement robotic arm assisted PRE-OP DIAGNOSIS: Left leg DVT, degenerative joint disease of left hip TISSUE SUBMITTED: Left hip bone and soft tissue MICROSCOPIC DIAGNOSIS Bone and tissue of left hip, total hip resection: Severe degenerative joint disease. Soft tissue with reactive change. AM: 01/24/2024 MICROSCOPIC DESCRIPTION Slides are reviewed. GROSS DESCRIPTION Received is one container labeled with the patient's name and designated bone and soft tissue left hip. The specimen consists of a michelle femoral head (with portion of femoral neck). The femoral head measures 6.0 x 5.5 x 4.0 cm (and the femoral neck measures 0.7 cm in length.) The articular surface displays prominent osteophyte formation, eburnation and bone erosion. Also present in the specimen container are multiple irregular fragments of bone reamings and pink-yellow soft tissue measuring in aggregate3.0 x 2.5 x 2.0cm. Program Mgr sections are submitted in two cassettes as follows: 1 - soft tissue, 2 - bone after decalcification. / GUSTAVO. 01/22/2024 TC:5 CPT: 19332, 77979
[2024-01-21] MEDS: Lactated Ringers 1,000 ML 100 ML IV ×2 (11:00→12:55)
[2024-01-21] MEDS: Cefazolin 3 GM in 0.9% Normal Saline (100mL Bag) 100 ML IV (11:38)
[2024-01-21] MEDS: dexAMETHasone 10 MG/ML Vial IV (11:45)
[2024-01-21] MEDS: TRANEXAMIC ACID 2,000 MG in 0.9% Normal Saline (100mL Bag) 100 ML 660 MG IV (11:53)
--- NOTE | 2024-01-21 14:20 | OP.PCM_ITS ---
Operative Report Date of Procedure: 01/21/24 Preoperative diagnosis: Left hip DJD Postoperative diagnosis: Same Procedure: CT-guided Makoplasty assisted left total hip arthroplasty Implants: Hancock Accolade II stem size 7, 127 degree neck angle +7.5 head neck length 58 mm Trident II acetabular shell with 35 mm cancellous screw 36 mm ceramic head, 10 degree Trident X3 polyethylene insert. Anesthesia: Spinal EBL: 200 cc Complications: None Condition: Stable to PACU Medical Record Retrieval Specialist Shan Jaramillo. My physician assistant branch operations manager was a vital part of this case. He was important in appropriate retraction during the case, and protection of soft tissues during procedure. His intimate knowledge of the case and my steps aided in safe and expedient completion of the procedure as well as appropriate position of the extremity during the case. He was also vital in assisting with closure under my direct supervision. Indication for procedure: This is a 73-year-old male who has had long-standing arthrosis of the hip who has failed conservative treatment and wished to undergo total hip arthroplasty. We did discuss operative versus nonoperative intervention including risks of bleeding, infection , nerve artery tissue damage, need for further surgery, fracture, leg length discrepancy dislocation blood clot and need for postoperative physical therapy and postoperative expectations. An informed consent was signed. Procedure: Patient was met in the preoperative holding area once again the operative extremity was identified by both patient and physician and was marked. Patient was met by anesthesia . Anesthesia was started. patient was then positioned in the lateral decubitus position on a well-padded pegboard with an axillary roll. All bony prominences were checked and padded. The patient was prepped and draped in the usual sterile fashion. A timeout was called to ensure the proper patient procedure and extremity were being contemplated. Anatomic landmarks were palpated and marked for a standard posterior lateral approach. Prior to this the ASIS was palpated and 3 fingerbreadths proximal to this 3 pins were placed at a 45 degree angle into the iliac crest with good purchase, stab incisions were made with a 15 blade into the skin prior to placement. The Makoplasty array was then secured. A 10 blade scalpel was used to make a posterior incision through the skin and subcutaneous tissue. retractors were used and electrocautery was used to maintain meticulous hemostasis and dissect full-thickness flaps until the gluteal fascia was reached. The gluteal fascia was incised in line with the gluteal fibers. The bursal tissue was then freed from the underside and a Charnley retractor was placed. The femoral tro chanteric checkpoint was placed and leg length was assessed using the trochanteric checkpoint and an EKG lead that was placed on the knee prior to prepping the leg .the fat pad was then elevated off of the external rotators with electrocautery and the external rotators were dissected off of the greater trochanter including the piriformis and were tagged with #1 Ethibond for later repair. The joint capsule opened with posterior trapdoor technique. The hip was surgically dislocated. The measurement on the preoperative CT from the top of the lesser trochanter to the femoral neck cut was marked Hohmann was placed around the lesser trochanter. A neck cutting guide was used to nelly the neck with a Bovie and an oscillating saw was used complete the femoral neck cut. The femoral head was then removed and sized. We then turned our attention to the acetabulum. A Bovie was used to make a perforation in the anterior joint capsule and a Powell retractor was placed this was repeated in the 6 o'clock position and a wide yesenia was placed there. With a long handled knife the labral and pulvinar tissue were removed. We then registered the acetabulum with the pointing array and confirmed our landmarks. Once the socket was thoroughly prepared and labral tissue and pulvinar was removed we single reamed with the robotic arm. We then used the robotic arm to position the acetabular implant and impacted it into place under robotic guidance. We then proceeded to place a posterior superior screw by drilling first measuring and inserting the screw. We then inserted a trial liner. And turned our attention back to the femur at this point a femoral elevator was used. As well as a pointed wide Hohmann around the lesser trochanter and a Hohmann to help retract the gluteus medius. A box chisel was used to remove excess lateral neck followed by a canal finder and a lateralizing reamer. This was followed by sequential broaches. Attention was made of the version within the canal based on preoperative templating. Once the final broach was seated we then trialed reduced the hip it was determined that a 127 degree neck angle with a +7.5 neck length was the appropriate size. We then checked stability with shuck testing as well as flexion and internal rotation. then proceeded with hip extension and checked leg lengths at the knees and heels as well as with the trochanteric checkpoint and knee EKG lead. At this point trials were removed. A liner was inserted to the cup. The femoral stem was inserted. We re-trialed and then proceeded to impact the femoral head onto the Cruzito taper. We then surgically reduce the hip check stability again and leg lengths and were satisfied. Betadine rinse was allowed to sit for 5 minutes while everyone changed their gloves. Thorough irrigation was performed. Followed by closure of the external rotators with #2 FiberWire followed by closure of gluteal fascia with #1 Ethibond. 0 Vicryl fat stitches and 2-0 Vicryl subcutaneous stitches and zonia in the skin. Zonia were placed in the skin pin sites over the iliac crest and dressed with a Mepilex dressing. The main incision was dressed with a Mepilex ag dressing and an abduction pillow was placed. Patient tolerated the procedure well there was no intraoperative complications all counts were correct and the patient was brought back to the PACU in stable condition
--- NOTE | 2024-01-21 14:22 | PCM.POST.ANE ---
Anesthesia: Postop Eval I Current Vital Signs Temperature: 97.2 F Pulse Rate: 18 Blood Pressure: 107/75 Respiratory Rate: 18 Pulse Ox: 92 Oxygen Delivery Method: Nasal Cannula Oxygen Flow Rate (L/min): 4 Assessment Airway patent: Yes Spontaneous unlabored respirations: Yes Mental status: Awake and Calm nausea: No Vomiting: No Anesthesia Complication: No Fluid Hydration Crystalloid volume administer (ml): 2,100 Total IV fluid infused: 2,100 Progress Note Post-operative progress note: C&db ENC'D; DENIES PAIN Anesthesia document: Postop Eval 1 completed: Yes
--- NOTE | 2024-01-21 14:30 | RAD_ITS ---
STUDY: X-RAY - PELVIS AND LEFT HIP REASON FOR EXAM: Male, 73 years old. Post Op -- AP both hips on single aleida/lateral of op hip PACU TECHNIQUE: 2 views of the pelvis and hip. COMPARISON: Pelvic x-ray dated June 19, 2023. FINDINGS: Newly placed left hip prosthesis demonstrating good bony contact and alignment. No hardware complications are present. Expected postoperative air and overlying skin moreno of the left hip. The left femoral head and neck have been surgically resected. Stable right hip prosthesis. No occult fractures are seen. There is a non-specific bowel gas pattern. Normal visualized soft tissue structures. Normal bilateral iliac wings, sacroiliac joints and visualized sacrum. Normal bilateral superior and inferior pubic rami. Normal pubic symphysis. Normal bilateral ischial tuberosities. RAD/Hip Min 2 Views (Portable) IMPRESSION: Status post left hip arthroplasty Electronically Signed: Gunner Crooks MD at 15:25 EDT ,
--- NOTE | 2024-01-21 16:36 | POSTOPAN2_ITS ---
Anesthesia Postop Eval I Sum Postop Eval Completion status Anesthesia document: Postop Eval 1 completed: Yes Anesthesia Postop Eval I Summary Anesthesia Postop Eval I Summary: Anesthesia Postop Eval I: Assessment Summary Airway patent Yes 01/21/24 14:23 SALES SOLUTIONS [email or web address] Spontaneous unlabored Yes 01/21/24 14:23 SALES SOLUTIONS [email or web address].SCHR respirations Mental status Awake,Calm 01/21/24 14:23 SALES SOLUTIONS [email or web address].SCHR nausea No 01/21/24 14:23 SALES SOLUTIONS [email or web address].SCHR Vomiting No 01/21/24 14:23 SALES SOLUTIONS [email or web address].SCHR Anesthesia Postop Eval I: Fluid Summary Crystalloid volume administer 2,100 01/21/24 14:23 SALES SOLUTIONS [email or web address].SCHR (ml) Colloids volume administered ( ml) Blood Product volume administered (ml) Total IV fluid infused 2,100 01/21/24 14:23 SALES SOLUTIONS [email or web address].SCHR Anesthesia Postop Eval I: Summary Notes Anesthesia Complication No 01/21/24 14:23 SALES SOLUTIONS [email or web address].SCHR Anesthesia Complication Comment: Post-operative progress note C&db ENC'D; DENIES 01/21/24 14:23 SALES SOLUTIONS [email or web address].SCHR PAIN Anesthesia: Postop Eval II Evaluation Mental status: Awake and Calm Pain Level: 2 nausea: No Vomiting: No Complications Anesthesia Complication: No
--- NOTE | 2024-01-21 16:36 | PCM.POSTANE2 ---
Anesthesia Postop Eval I Sum Postop Eval Completion status Anesthesia document: Postop Eval 1 completed: Yes Anesthesia Postop Eval I Summary Anesthesia Postop Eval I Summary: Anesthesia Postop Eval I: Assessment Summary Airway patent Yes 01/21/24 14:23 INSURANCE PLAN SPECIALIST.SCHR Spontaneous unlabored Yes 01/21/24 14:23 INSURANCE PLAN SPECIALIST.SCHR respirations Mental status Awake,Calm 01/21/24 14:23 INSURANCE PLAN SPECIALIST.SCHR nausea No 01/21/24 14:23 INSURANCE PLAN SPECIALIST.SCHR Vomiting No 01/21/24 14:23 INSURANCE PLAN SPECIALIST.SCHR Anesthesia Postop Eval I: Fluid Summary Crystalloid volume administer 2,100 01/21/24 14:23 INSURANCE PLAN SPECIALIST.SCHR (ml) Colloids volume administered ( ml) Blood Product volume administered (ml) Total IV fluid infused 2,100 01/21/24 14:23 INSURANCE PLAN SPECIALIST.SCHR Anesthesia Postop Eval I: Summary Notes Anesthesia Complication No 01/21/24 14:23 INSURANCE PLAN SPECIALIST.SCHR Anesthesia Complication Comment: Post-operative progress note C&db ENC'D; DENIES 01/21/24 14:23 INSURANCE PLAN SPECIALIST.SCHR PAIN Anesthesia: Postop Eval II Evaluation Mental status: Awake and Calm Pain Level: 2 nausea: No Vomiting: No Complications Anesthesia Complication: No
[2024-01-21] MEDS: Cefazolin 2 GM in 0.9% Normal Saline (100mL Bag) 100 ML IV (17:48)
[2024-01-21] MEDS: 0.9% Normal Saline (1000mL) 1,000 ML 125 ML IV (17:52)
[2024-01-21] MEDS: Atorvastatin Calcium 20 MG Tablet PO (21:39)
[2024-01-21] MEDS: Senna/Docusate Sodium 1 Tablet 2 TABLET PO (21:39)
[2024-01-22] VITALS (7 sets, daily range): BP systolic 108–126; BP diastolic 63–86; PULSE 77–95; RESP 16–18; TEMP 36.6–38.4; O2SAT 93–97
[2024-01-22] MEDS: Cefazolin 2 GM in 0.9% Normal Saline (100mL Bag) 100 ML IV ×2 (02:05→11:32)
[2024-01-22] MEDS: 0.9% Normal Saline (1000mL) 1,000 ML 125 ML IV (02:05)
[2024-01-22] MEDS: Acetaminophen 500 MG Tablet 1000 MG PO ×3 (06:39→23:22)
[2024-01-22] MEDS: APIXABAN 2.5 MG TABLET (WCH) PO ×2 (06:39→23:21)
[2024-01-22 07:14] LABS: Hematocrit 34.3 % (40-54); Hemoglobin 11.2 g/dL (13.0-16.5); Mean Corp Hgb Conc 32.7 g/dL (32-36); Mean Corpuscular Hgb 29.5 pg (27.0-32.0); Mean Corpuscular Volume 90.3 fL (80-94); Mean Platelet Vol. 9.5 fl (6.2-12.0); Platelet Count 186 K/mm3 (150-450); RBC Distribution Width CV 13.3 % (11.6-14.6); RBC Distribution Width SD 44.2 fl (35.1-43.9); White Blood Count 11.8 K/mm3 (4.4-11.0)
[2024-01-22 08:18] LABS: Anion Gap 7 (5-15); BUN 14 mg/dL (7-18); BUN/Creat Ratio 19.5 RATIO (10-20); Calcium,Total 8.4 mg/dL (8.5-10.1); Chloride 108 mmol/L (98-107); Creatinine, Serum 0.72 mg/dL (0.70-1.30); EST Glomerular Filtration Rate 114 mL/min (>60); Est Glom Filt Rate - Afr Amer 138 mL/min (>60); Estimated Creatinine Clearance 100.65 ml/min; Glucose 139 mg/dL (74-106); Potassium 3.9 mmol/L (3.5-5.1); Sodium Level 138 mmol/L (136-145)
[2024-01-22] MEDS: Lisinopril 40 MG Tablet PO (11:28)
[2024-01-22] MEDS: hydroCHLOROthiazide 12.5mg 12.5 MG PO (11:28)
[2024-01-22] MEDS: Senna/Docusate Sodium 1 Tablet 2 TABLET PO ×2 (11:28→23:21)
[2024-01-22] MEDS: oxyCODONE 5 MG Tablet PO ×2 (11:31→16:44)
--- NOTE | 2024-01-22 12:00 | CASEMGMT ---
DONNY DIAZ SUBSTATION ELECTRICIAN SUPERVISOR EMILY?to room to meet with patient for initial transition planning/care coordination assessment. RN EMILY?introduced self and role at [facility]. Pt voices understanding and consents to assessment?at this time. Pt sitting up in chair in no distress at this time. Pt is A/O at this time and answers all questions appropriately. Care providers, pharmacy, and demographics verified/updated at this time. Strata:?1 PCP: Dr Garcia Specialists: Dr Gamino-luca Preferred Pharmacy: [facility] @ [place] Otherwise, pt goes to [facility] in [place] Insurance: [facility] Prescription Benefit: yes LNOK: , [place]. Son, Zechariah Living Arrangements: Lives w/ in one-story home w/one step to enter. They live on same property as their son. Pt was independent prior to surgery. Pt manages his own medications but states keep me straight. does most of the home mgnt tasks, pt does assist some. Transportation:?Pt and both drive. DME: States has the following DME: shower chair, cane, walker, manufacturing operator, sock aid, long-handled shoe horn. Pt states no need for further DME at this time. HHC/SNF: Pt has been to [facility] RU in the past. He has also done OP therapy @ [facility]. Pt states he would like to go to [facility] [place]. DONNY DIAZ informed him he may not qualify to go there. He states that is his 1st preference and declines other RU or SNF options at this time, unless it would be determined he could not go there. Ayesha MIRELES, made aware. PLAN: DAYRON BARRETO RN, CM
--- NOTE | 2024-01-22 12:25 | CASEMGMT ---
Discharge Planning A list of?SNF providers including quality and resource use data and consistent with the patient's preferred geographic region, medical needs, and insurance network was created in [facility] Guide.? This list was provided to the SW. Zoraida Craig Discharge Planning Asst.
--- NOTE | 2024-01-22 12:36 | CASEMGMT ---
Addendum entered by Ayesha Arevalo 01/22/24 13:28: Social Work RU is unable to accept pt at this time but TCU is able to accept. Pt and notified and agreeable to placement at TCU. Precert started. Plan: TCU, pending precert COCO Cr Original Note: Social Work SW received referral from [facility] for Inpatient Rehab. SW met with pt and and introduced self and role of SW. Pt's stating she cannot care for pt at home and pt will need short term rehab. Pt and requesting [facility] Inpatient Rehab. SW explained that pt may not qualify for Inpatient Rehab. A list of RU and SNF providers including quality and resource use data and consistent with the patient?s preferred geographic region, medical needs, and insurance network were provided from the [facility]Port Guide. Pt preference if [facility] TCU if RU cannot accept. Referral made to [facility] in [place] [facility]. SW will await determination of acceptance. [facility] Cr
--- NOTE | 2024-01-22 12:37 | PCM.PN.ORT ---
Subjective Subjective Patient seen and examined. He is doing okay complain of pain left hip but controlled well enough with medication. Denies any fever chills nausea vomiting shortness of breath or chest pain Objective Data Objective Data Vital Signs: Vital Signs Temp Pulse Resp BP Pulse Ox O2 Del Method O2 Flow Rate 98.9 F 83 18 108/67 94 Room Air 4 01/22/24 10:45 01/22/24 10:45 01/22/24 10:45 01/22/24 10:45 01/22/24 10:45 01/22/24 10:45 01/21/24 15:30 Oxygen Flow Rate (L/min) 4 Oxygen Delivery Method Room Air Weight: 251 lb 5.231 oz Body Mass Index (BMI) 39.3 Intake & Output: Intake and Output for Last 24 Hours 01/20/24 01/21/24 01/22/24 23:59 23:59 23:59 Intake Total 3447 / 3447 1714.17 / 1714.17 Balance 3447 / 3447 1714.17 / 1714.17 Lab / Micro Data 01/22/24 06:53 01/22/24 06:53 Labs: Laboratory Results - last 24 hr 01/22/24 06:53: WBC 11.8 H, RBC 3.80 L, Hgb 11.2 L, Hct 34.3 L, MCV 90.3, MCH 29.5, MCHC 32.7, RDW Std Deviation 44.2 H, RDW Coeff of Lamin 13.3, Plt Count 186, MPV 9.5, Sodium 138, Potassium 3.9, Chloride 108 H, Carbon Dioxide 23.0, Anion Gap 7, BUN 14, Creatinine 0.72, Estim Creat Clear Calc 100.65, Est GFR (MDRD) Af Amer 138, Est GFR (MDRD) Non-Af 114, BUN/Creatinine Ratio 19.5, Glucose 139 H, Calcium 8.4 L Micro: Microbiology 01/08/24 13:22 Swab (Method) Nasal Screen MRSA/MSSA - Final Radiography Diagnostic Testing: Radiology Impression Hip X-Ray 01/21/24 14:30 IMPRESSION: Status post left hip arthroplasty Electronically Signed: Gunner Crooks MD at 15:25 EDT Reading Location ID and State: [facility] / [place] , Service support , Physical Exam Const alert and oriented x3 General Appearance: cooperative Extremity Extremity Narrative: Left hip dressing clean dry intact compartment soft neurovascular intact left lower extremity EHL tibialis anterior gastrocsoleus intact sensation to light touch 2 out of 4 pedal pulse Assessment & Plan Assessment/Plan (1) S/P total hip arthroplasty: QUALIFIERS: Laterality: left Qualified Code(s): Z96.642 - Presence of left artificial hip joint PLAN: Plan Postop day #1 left total hip arthroplasty. 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 Dressings to be undisturbed until Saturday then incision should be cleaned daily with antibacterial soap and warm water daily at this point
--- NOTE | 2024-01-22 19:31 | NURSING ---
Dr. Watkins saw pt at this time. Changed pain medicaiton from 5-10mg to 5mg TID
--- NOTE | 2024-01-22 19:37 | PN.HOSP_ITS ---
Subjective Subjective 33-year-old male presented to the hospital yesterday for an elective left total hip arthroplasty for arthritis. He was doing well yesterday afternoon and evening after surgery however this morning he developed a little bit of confusion and apparently low-grade temp. The confusion worsened throughout the day and so medicine was consulted. On my evaluation he is ANO x 3 though he still seems a little bit out of it, nursing feels that he appears much better tonight than he did earlier in the afternoon. He was able to tell me what year it was and where he was and that he was here for surgery on his left hip but then he was a little bit confused 10 minutes later with the nurse when it first he said he was home but then quickly corrected that he is in the hospital. And then when she asked why he was here he did not know why but was able to say that he had surgery on his left hip. Objective Data Objective Data Vital Signs: Vital Signs Temp Pulse Resp BP Pulse Ox O2 Del Method O2 Flow Rate 98.9 F 83 18 108/67 94 Room Air 4 01/22/24 10:45 01/22/24 10:45 01/22/24 10:45 01/22/24 10:45 01/22/24 10:45 01/22/24 10:45 01/21/24 15:30 Oxygen Flow Rate (L/min) 4 Oxygen Delivery Method Room Air Weight: 251 lb 5.231 oz Body Mass Index (BMI) 39.3 Intake & Output: Intake and Output for Last 24 Hours 01/21/24 01/22/24 01/23/24 03:59 03:59 03:59 Intake Total 4557 / 4557 820.42 / 820.42 Balance 4557 / 4557 820.42 / 820.42 Lab / Micro Data 01/22/24 06:53 01/22/24 06:53 Labs: Laboratory Results - last 24 hr 01/22/24 06:53: WBC 11.8 H, RBC 3.80 L, Hgb 11.2 L, Hct 34.3 L, MCV 90.3, MCH 29.5, MCHC 32.7, RDW Std Deviation 44.2 H, RDW Coeff of Lamin 13.3, Plt Count 186, MPV 9.5, Sodium 138, Potassium 3.9, Chloride 108 H, Carbon Dioxide 23.0, Anion Gap 7, BUN 14, Creatinine 0.72, Estim Creat Clear Calc 100.65, Est GFR (MDRD) Af Amer 138, Est GFR (MDRD) Non-Af 114, BUN/Creatinine Ratio 19.5, Glucose 139 H, C alcium 8.4 L Micro: Microbiology 01/08/24 13:22 Swab (Method) Nasal Screen MRSA/MSSA - Final Physical Exam Narrative General: Alert, Oriented x3 with periodic disorientation, Cooperative, No apparent distress HEENT: Atraumatic, PERRLA, EOMI, Normocephalic Oral: Moist Mucosa Neck: Supple, No JVD Lungs: Clear to auscultation, Normal air movement, No rhonchi, No wheeze, No rales Cardiovascular: Regular rate, Regular Rhythm, Normal S1, Normal S2, No murmurs Abdomen: Soft, Non Tender, Non-Distended, No Hepato-splenomegaly Extremities: No edema, Capillary Refill Less than 3 Seconds Skin: Dressing CDI on left hip Musculoskeletal: No Tenderness to Palpation of Joints or Extremities Neurological: No focal neurological deficits, Motor Exam 5/5 strength throughout, Sensory exam intact to light touch and pain Psych/Mental Status: Normal Affect, Appropriate Assessment & Plan Assessment/Plan (1) S/P total hip arthroplasty: QUALIFIERS: Laterality: left Qualified Code(s): Z96.642 - Presence of left artificial hip joint PLAN: Plan 1. Status post left total hip arthroplasty for arthritis on 01/21/2024/altered mental status with low-grade temp ? Pain management is can to be decreased from oxycodone 5 to 10 mg every 4 hours as needed to 5 mg 3 times daily as needed ? Is still fairly early to consider infection at this time with the confusion and low-grade temp which she does not appear to have currently. ? Encourage incentive spirometry and ambulation ? He did have a slight leukocytosis this morning to 11.8 but this is consistent with a reactive leukocytosis from surgery hemoglobin was stable and so was his renal function and electrolytes, glucose this morning was 139 ? I would like to see how he does with the reduced dosing for his oxycodone, does appear that his confusion correlates to oxycodone dosing as nursing states that he was normal this morning and then he received a dose of oxycodone at around 11 AM and then developed some mild confusion and then received another dose of oxycodone at around 4 PM and his confusion became significantly worse after that. 2. Essential HTN/HLD ? Currently on Lipitor as well as lisinopril and hydrochlorothiazide none of these should be affecting his mentation ? Renal function is stable so can continue ? Will recheck labs in the morning ? Will monitor his blood pressure make adjustments as necessary DVT: Eliquis 2.5 mg p.o. twice daily Charges/Coding Visit Charges Inpatient E&M: 28729 Subs Hosp L2
[2024-01-22] MEDS: Atorvastatin Calcium 20 MG Tablet PO (23:21)
[2024-01-23] MEDS: Ketorolac 15 MG/ML Vial IV (01:00)
[2024-01-23] MEDS: Acetaminophen 500 MG Tablet 1000 MG PO (05:35)
[2024-01-23 05:40] VITALS: BP 140/80; PULSE 91; RESP 16; TEMP 36.6; O2SAT 94
[2024-01-23 07:21] LABS: Hematocrit 30.3 % (40-54); Hemoglobin 9.9 g/dL (13.0-16.5); Mean Corp Hgb Conc 32.7 g/dL (32-36); Mean Corpuscular Hgb 29.6 pg (27.0-32.0); Mean Corpuscular Volume 90.4 fL (80-94); Mean Platelet Vol. 9.8 fl (6.2-12.0); Platelet Count 151 K/mm3 (150-450); RBC Distribution Width CV 13.6 % (11.6-14.6); RBC Distribution Width SD 44.7 fl (35.1-43.9); Red Blood Count 3.35 M/mm3 (4.6-6.2); White Blood Count 8.9 K/mm3 (4.4-11.0)
[2024-01-23 07:46] LABS: Anion Gap 6 (5-15); BUN 15 mg/dL (7-18); BUN/Creat Ratio 25.2 RATIO (10-20); Chloride 108 mmol/L (98-107); EST Glomerular Filtration Rate 142 mL/min (>60); Est Glom Filt Rate - Afr Amer 172 mL/min (>60); Estimated Creatinine Clearance 100.65 ml/min; Glucose 128 mg/dL (74-106); Potassium 3.4 mmol/L (3.5-5.1); Sodium Level 138 mmol/L (136-145)
--- NOTE | 2024-01-23 09:08 | PCM.PN.ORT ---
Subjective Subjective Patient seen and examined. He is doing very well his pain is controlled his hip pain is much better already than it was preoperatively just having the surgical pain which is tolerable. He was having some confusion yesterday morning after oxycodone he has subsequently decreased his oxycodone after the hospitalist was consulted on him and he is doing much better he is A and O x 3 he has no complaints or concerns denies fevers chills nausea vomiting shortness of breath or chest pain and his pain is controlled. Objective Data Objective Data Vital Signs: Vital Signs Temp Pulse Resp BP Pulse Ox O2 Del Method O2 Flow Rate 98 F 91 16 140/80 H 94 Room Air 4 01/23/24 05:40 01/23/24 05:40 01/23/24 05:40 01/23/24 05:40 01/23/24 05:40 01/23/24 05:40 01/21/24 15:30 Oxygen Flow Rate (L/min) 4 Oxygen Delivery Method Room Air Weight: 251 lb 5.231 oz Body Mass Index (BMI) 39.3 Intake & Output: Intake and Output for Last 24 Hours 01/21/24 01/22/24 01/23/24 23:59 23:59 23:59 Intake Total 3447 / 3447 1930.42 / 1930.42 Balance 3447 / 3447 1930.42 / 1930.42 Lab / Micro Data 01/23/24 06:47 01/23/24 06:47 Labs: Laboratory Results - last 24 hr 01/23/24 06:47: WBC 8.9, RBC 3.35 L, Hgb 9.9 L, Hct 30.3 L, MCV 90.4, MCH 29.6, MCHC 32.7, RDW Std Deviation 44.7 H, RDW Coeff of Lamin 13.6, Plt Count 151, MPV 9.8, Sodium 138, Potassium 3.4 L, Chloride 108 H, Carbon Dioxide 24.0, Anion Gap 6, BUN 15, Creatinine 0.60 L, Estim Creat Clear Calc 100.65, Est GFR (MDRD) Af Amer 172, Est GFR (MDRD) Non-Af 142, BUN/Creatinine Ratio 25.2 H, Glucose 128 H, Calcium 8.0 L Micro: Microbiology 01/08/24 13:22 Swab (Method) Nasal Screen MRSA/MSSA - Final Physical Exam Const alert and oriented x3 General Appearance: cooperative Extremity Extremity Narrative: Left hip dressing clean dry and intact the pin site dressing came loose and was changed by nursing he is neurovascular intact left lower extremity Assessment & Plan Assessment/Plan (1) S/P total hip arthroplasty: QUALIFIERS: Laterality: left Qualified Code(s): Z96.642 - Presence of left artificial hip joint PLAN: Plan PLAN: Postop day #2 left total hip arthroplasty. PT OT weightbearing as tolerated precautions DVT prophylaxis SCDs FRANK adarshe Eliquis 2.5 mg twice daily for 35 days postop secondary to history of large lower extremity DVT in the past Patient will benefit from TCU Postoperative confusion resolved after oxycodone decreased. Main dressing Aquacel Ag to be undisturbed until Saturday then incision should be cleaned daily with antibacterial soap and warm water daily at this point Smaller pin site dressing has already become loose and needed to be changed twice please change and clean it daily with antibacterial soap and warm water at this point
[2024-01-23 09:11] VITALS: BP 148/73; PULSE 93; RESP 18; TEMP 36.9; O2SAT 94
--- NOTE | 2024-01-23 09:11 | DCINST_ITS ---
Discharge Instructions Diet Discharge Diet: No restrictions Activity Weight Bearing Status: Full weight bearing Dressing / Incision Call your doctor if you observe: Shortness of breath and Chest pain Additional Dressing/Incision Instructions:: Do not shower 72hrs postop. Begin daily showering warm water antibacterial soap postop day #3( 72hrs Post- operatively) and then daily. Leave the main dressing on for 72 hours postoperatively then may remove prior to first shower and change dressing daily after this until no drainage for 2 consecutive days then may leave open to air. The smaller pin site dressing has already come loose and required changing please change this daily and clean incision daily with antibacterial soap and warm water starting now. Follow hip precautions that were reviewed in hospital. Wear compression stockings, may remove at night. Start physical therapy as directed in hospital. Follow prescriptions instructions do not take any other pain medication or differ dosing without consulting your physician. Do not take oral NSAIDs until blood thinner has been completed , then may begin the day after completion if needed . He will continue Eliquis 2.5 mg twice daily for 35 days postop given DVT after his last surgery. Call Dr. Gamino's office with any concerns. Follow Up Care Please Follow Up With: Carlito Gamino DO When: 2 weeks Test Results: Test results from this visit will be discussed in further detail at your follow- up appointment, if applicable. Discharge Plan Admission Admit Date/Time: 01/21/24 14:11 Primary Reason for Your Visit: Left total hip arthroplasty Attending Provider: Carlito Gamino Primary Care Provider: Osiel Garcia Consulting Providers: Luly Lemus Discharge Orders/Prescriptions Prescriptions: New acetaminophen 500 mg Tablet 1,000 mg PO Q8 Qty: 100 0RF Eliquis 2.5 mg tablet 2.5 mg PO BID 33 Days Qty: 66 0RF oxycodone 5 mg Tablet 5 mg PO TID PRN (Reason: Pain Score 4-10) 7 Days Qty: 21 0RF Continued lisinopril 40 mg tablet 40 mg PO DAILY Patient Comments: TAKE 1 TABLET BY MOUTH ONCE DAILY hydrochlorothiazide 12.5 mg capsule 12.5 mg PO DAILY Patient Comments: TAKE 1 CAPSULE BY MOUTH ONCE DAILY multivitamin Tablet 1 tab PO DAILY atorvastatin 20 mg tablet 20 mg PO QDAY Discontinued aspirin 81 mg tablet,delayed release (DR/EC) 81 mg PO DAILY Referrals / Follow Up: Osiel Garcia MD [Primary Care Provider] - Disposition Disposition (needs filled in before D/C Order can be placed): Shelter Facility
[2024-01-23] MEDS: APIXABAN 2.5 MG TABLET (WCH) PO (09:17)
[2024-01-23] MEDS: Lisinopril 40 MG Tablet PO (09:17)
[2024-01-23] MEDS: hydroCHLOROthiazide 12.5mg 12.5 MG PO (09:17)
[2024-01-23] MEDS: Potassium Chloride Oral Tablet 20 MEQ 40 MEQ PO (09:17)
[2024-01-23] MEDS: Senna/Docusate Sodium 1 Tablet 2 TABLET PO (09:18)
--- NOTE | 2024-01-23 09:20 | TREXTCAR_ITS ---
Diet Diet Order/Speech Therapy: 01/21/24 17:43 Diet: Regular - General Wound(s) left hip: Wound Type: Surgical Incision Left ABD fold: Wound Type: Surgical Incision Therapies Weight Bearing: Full weight bearing Problem/Diagnosis (1) S/P total hip arthroplasty: Status: Acute Code(s): Z96.649 - Presence of unspecified artificial hip joint Plan PLAN: Postop day #2 left total hip arthroplasty. PT OT weightbearing as tolerated precautions DVT prophylaxis SCDs FRANK adarshe Eliquis 2.5 mg twice daily for 35 days postop secondary to history of large lower extremity DVT in the past Patient will benefit from TCU Postoperative confusion resolved after oxycodone decreased. Main dressing Aquacel Ag to be undisturbed until Saturday then incision should be cleaned daily with antibacterial soap and warm water daily at this point Smaller pin site dressing has already become loose and needed to be changed twice please change and clean it daily with antibacterial soap and warm water at this point Allergies/Procedures Done in Hospital Allergies No Known Allergies Allergy (Verified 01/21/24 09:41) Type of Care/Length of Stay Estimated LOS: Convalescent Care Less Than 30 days Type of Care Needed: Skilled Rehab Potential: Good Prognosis: Good Additional Orders/Day of Discharge Day of Discharge: 01/23/24 Dietary and Speech Recommendations Dietitian Recommendations/Changes: Continue regular diet as ordered for now as Po established post-op; change to cardiac diet as needed given hx of HTN/HLD. Pt appears nutritionally stable at this time; consult RD as needed if nutrition problems arise. Follow Up Care Please Follow Up With: Carlito Gamino DO When: 2 weeks if discharged from TCU otherwise call Discharge Plan Admission Admit Date/Time: 01/21/24 14:11 Primary Reason for Your Visit: Left total hip arthroplasty Attending Provider: Carlito Gamino Primary Care Provider: Osiel Garcia Consulting Providers: Luly Lemus Discharge Orders/Prescriptions Prescriptions: New acetaminophen 500 mg Tablet 1,000 mg PO Q8 Qty: 100 0RF Eliquis 2.5 mg tablet 2.5 mg PO BID 33 Days Qty: 66 0RF oxycodone 5 mg Tablet 5 mg PO TID PRN (Reason: Pain Score 4-10) 7 Days Qty: 21 0RF Continued lisinopril 40 mg tablet 40 mg PO DAILY Patient Comments: TAKE 1 TABLET BY MOUTH ONCE DAILY hydrochlorothiazide 12.5 mg capsule 12.5 mg PO DAILY Patient Comments: TAKE 1 CAPSULE BY MOUTH ONCE DAILY multivitamin Tablet 1 tab PO DAILY atorvastatin 20 mg tablet 20 mg PO QDAY Discontinued aspirin 81 mg tablet,delayed release (DR/EC) 81 mg PO DAILY Referrals / Follow Up: Osiel Garcia MD [Primary Care Provider] - Disposition Disposition (needs filled in before D/C Order can be placed): Custodial Facility (1) S/P total hip arthroplasty Qualifiers: Laterality: left Qualified Code(s): Z96.642 - Presence of left artificial hip joint
--- NOTE | 2024-01-23 09:22 | DS.PCM_ITS ---
Providers Date of Admission: 01/21/24 Primary Care Physician: Dr. Osiel Garcia MD Consultations 01/22/24 18:27 Consult: Hospitalist Routine Consulting Provider: Waldo Watkins Reason for Consult: new onset confusion, low grade temp EMERGENT Consult: No MD Notified: Yes Date Notified: 01/22/24 Time Notified: 18:27 Method of Notification: Text Reason For Visit: Left Total Hip Replacement Robotic Diagnosis Discharge Diagnosis (1) S/P total hip arthroplasty: Status: Acute Code(s): Z96.649 - Presence of unspecified artificial hip joint Qualifiers: Laterality: left Qualified Code(s): Z96.642 - Presence of left artificial hip joint Plan PLAN: Postop day #2 left total hip arthroplasty. PT OT weightbearing as tolerated precautions DVT prophylaxis SCDs FRANK hose Eliquis 2.5 mg twice daily for 35 days postop secondary to history of large lower extremity DVT in the past Patient will benefit from TCU Postoperative confusion resolved after oxycodone decreased. Main dressing Aquacel Ag to be undisturbed until Saturday then incision should be cleaned daily with antibacterial soap and warm water daily at this point Smaller pin site dressing has already become loose and needed to be changed twice please change and clean it daily with antibacterial soap and warm water at this point Medications at Discharge Home Medications hydrochlorothiazide 12.5 mg capsule 12.5 mg PO DAILY BP 06/19/23 lisinopril 40 mg tablet 40 mg PO DAILY BP 06/19/23 multivitamin 1 tab PO DAILY SUPPLEMENT 06/19/23 atorvastatin 20 mg tablet 20 mg PO QDAY CHOLESTEROL 12/11/23 acetaminophen 500 mg tablet 1,000 mg (2 x 500 mg) PO Q8 #100 tabs 01/23/24 apixaban 2.5 mg tablet (Eliquis) 2.5 mg PO BID 33 days #66 tabs 01/23/24 oxycodone 5 mg tablet 5 mg PO TID PRN Pain Score 4-10 7 days #21 tabs 01/23/24 Hospital Course Operations total hip replacement Summary of Care Provided Hospital Course: Patient with 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 Patient underwent total hip arthroplasty day of admission. Patient did receive pre-and postoperative antibiotics which were discontinued within 23 hours postoperatively. Patient did receive spinal anesthesia and postoperatively pain was controlled with both IV and p.o. pain medication. Patient did receive 2 g of tranexamic acid. hemoglobin and hematocrit were monitored postoperatively as well as vital signs and the patient did not require any blood transfusion. He did have some postoperative confusion on postop day #1 which was resolved after decreasing his oxycodone. Dressing will be changed daily beginning postop day #3 before shower will be removed and replaced after. His pin site dressing should be changed and cleaned daily starting now. pt was started on [Eliquis 2.5 mg] twice daily postop day #1 for which will continue for 35 days postoperatively secondary to history of DVT. Patient was seen by physical therapy was ambulating the halls well. patient will be discharged We will continue physical therapy in the transitional care unit, will follow-up in the office in 2 weeks. Weight / BMI Weight Weight: 251 lb 5.231 oz Body Mass Index (BMI) 39.3 ABG / Lab / Microbiology Data 01/23/24 06:47 01/23/24 06:47 Laboratory: Laboratory Results - last 24 hr 01/23/24 06:47: WBC 8.9, RBC 3.35 L, Hgb 9.9 L, Hct 30.3 L, MCV 90.4, MCH 29.6, MCHC 32.7, RDW Std Deviation 44.7 H, RDW Coeff of Lamin 13.6, Plt Count 151, MPV 9.8, Sodium 138, Potassium 3.4 L, Chloride 108 H, Carbon Dioxide 24.0, Anion Gap 6, BUN 15, Creatinine 0.60 L, Estim Creat Clear Calc 100.65, Est GFR (MDRD) Af Amer 172, Est GFR (MDRD) Non-Af 142, BUN/Creatinine Ratio 25.2 H, Glucose 128 H, Calcium 8.0 L Microbiology: Microbiology 01/08/24 13:22 Swab (Method) Nasal Screen MRSA/MSSA - Final D/C Instructions Discharge Diet: No restrictions Weight Bearing Status: Full weight bearing Call your doctor if you observe: Shortness of breath and Chest pain Additional Dressing/Incision Instructions: Do not shower 72hrs postop. Begin daily showering warm water antibacterial soap postop day #3( 72hrs Post- operatively) and then daily. Leave the main dressing on for 72 hours postoperatively then may remove prior to first shower and change dressing daily after this until no drainage for 2 consecutive days then may leave open to air. The smaller pin site dressing has already come loose and required changing please change this daily and clean incision daily with antibacterial soap and warm water starting now. Follow hip precautions that were reviewed in hospital. Wear compression stockings, may remove at night. Start physical therapy as directed in hospital. Follow prescriptions instructions do not take any other pain medication or differ dosing without consulting your physician. Do not take oral NSAIDs until blood thinner has been completed , then may begin the day after completion if needed . He will continue Eliquis 2.5 mg twice daily for 35 days postop given DVT after his last surgery. Call Dr. Gamino's office with any concerns. Please Follow Up With: Carlito Gamino DO When: 2 weeks Meaningful Use Info Meaningful Use Meaningful Use Diagnoses (Choose all that apply): None applicable Ischemic Stroke Statin Dosing Therapy Reference: STATIN DOSE THERAPY REFERENCE: * Patients > 75 years receive moderate or high dose statin therapy. * Patients 75 years or YOUNGER should receive HIGH intensity statin dose unless contraindicated. You will be required to document reason for non-treatment if statin daily dose does not meet guidelines. HIGH DOSE STATIN THERAPY DAILY Atorvastatin > than or = to 40 mg Rosuvastatin > than or = to 20 mg Amlodipine + Atorvastatin > than or = to 2.5/40 mg Ezetimibe + Simvastatin 10/80 mg Simvastatin 80mg Discharge Plan Admission Admit Date/Time: 01/21/24 14:11 Primary Reason for Your Visit: Left total hip arthroplasty Attending Provider: Carlito Gamino Primary Care Provider: Osiel Garcia Consulting Providers: Luly Lemus Discharge Orders/Prescriptions Prescriptions: New acetaminophen 500 mg Tablet 1,000 mg PO Q8 Qty: 100 0RF Eliquis 2.5 mg tablet 2.5 mg PO BID 33 Days Qty: 66 0RF oxycodone 5 mg Tablet 5 mg PO TID PRN (Reason: Pain Score 4-10) 7 Days Qty: 21 0RF Continued lisinopril 40 mg tablet 40 mg PO DAILY Patient Comments: TAKE 1 TABLET BY MOUTH ONCE DAILY hydrochlorothiazide 12.5 mg capsule 12.5 mg PO DAILY Patient Comments: TAKE 1 CAPSULE BY MOUTH ONCE DAILY multivitamin Tablet 1 tab PO DAILY atorvastatin 20 mg tablet 20 mg PO QDAY Discontinued aspirin 81 mg tablet,delayed release (DR/EC) 81 mg PO DAILY Referrals / Follow Up: Osiel Garcia MD [Primary Care Provider] - Disposition Disposition (needs filled in before D/C Order can be placed): Detention Facility
--- NOTE | 2024-01-23 10:13 | CASEMGMT ---
Social Work Precert has been obtained for pt to go to TCU. Physician updated and pt is ready for dc today. SW met with pt's and updated and she is agreeable with dc plan. Pt is currently in therapy and will update him. Latanya in TCU notified that pt will admit today. Nursing updated. Orders faxed to TCU. Disposition: TCU, skilled level of care [facility]
--- NOTE | 2024-01-23 10:21 | NURSING ---
report called to Estela in TCU, pt will be going to room 19.
--- NOTE | 2024-02-07 07:45 | PCM.PN.ORT ---
Subjective Subjective Seen and examined. Doing okay. No fevers or chills. Pain controlled Objective Data Objective Data Vital Signs: Vital Signs Temp Pulse Resp BP Pulse Ox O2 Del Method O2 Flow Rate 98.4 F 93 18 148/73 H 94 Room Air 4 01/23/24 09:11 01/23/24 09:11 01/23/24 09:11 01/23/24 09:11 01/23/24 09:11 01/23/24 09:11 01/21/24 15:30 Oxygen Flow Rate (L/min) 4 Oxygen Delivery Method Room Air Weight: 251 lb 5.231 oz Body Mass Index (BMI) 39.3 Lab / Micro Data 01/23/24 06:47 01/23/24 06:47 Micro: Microbiology 01/08/24 13:22 Swab (Method) Nasal Screen MRSA/MSSA - Final Physical Exam Const alert, oriented x3 and no apparent distress Extremity Extremity Narrative: Significant edema left lower extremity mild erythema around the hip with folliculitis mildly improved since Saturday no drainage incision approximated. Assessment & Plan Assessment/Plan (1) DVT (deep venous thrombosis): QUALIFIERS: DVT location: lower extremity Affected thrombotic vein of extremity: femoral PLAN: Plan Large femoral DVT left lower extremity significant lower extremity edema suspect residual erythema around the hip is from swelling. He has been afebrile. On Eliquis Encourage strict lower extremity elevation when not ambulating Follow-up with me 2 weeks in office for wound check or sooner if concerned.
== END 2024-01-23 10:30 | disposition skilled nursing facility (03) | DRG 470 ==
LOC: ACINP 14:45 → MS3 17:06
PROVIDERS: Anesthesiology; Family Medicine; Admitting Provider Orthopaedic Surgery; PCP Family Medicine; Referring Provider Orthopaedic Surgery; Visit Provider Orthopaedic Surgery
PROC: 8E0Y0CZ Robotic Assisted Procedure of Lower Extremity, Open Approach (ICD-10-PCS; CPT 27130; principal; 2024-01-21 10:00)
DX: M16.12 Unilateral primary osteoarthritis, left hip (principal); F05 Delirium due to known physiological condition; I10 Essential (primary) hypertension; E78.5 Hyperlipidemia, unspecified; Z86.718 Personal history of other venous thrombosis and embolism
CPT/HCPCS: 36415; 73502; 80048; 82985; 83036; 83735; 85025; 85027; 85610; 85730; 86850; 86900; 86901; 87081; 88305; 88311; 93005; 94668; 97162; 97166; 97530; 97535; C1713; C1776; J7030; J7120; J2405; J3475

== ENCOUNTER 2024-01-23 10:49 | Inpatient (IN) | payer MEDICARE, SELFPAY ==
[2024-01-23 10:58] VITALS: BP 131/75; PULSE 86; RESP 14; TEMP 37.1; O2SAT 94
[2024-01-23 10:59] VITALS: BMI 40.5
[2024-01-23 11:33] VITALS: PULSE 85; RESP 16; O2SAT 96
[2024-01-23] MEDS: Acetaminophen 500 MG Tablet 1000 MG PO ×2 (14:35→21:33)
[2024-01-23] MEDS: FLU VACCINE **HIGH DOSE** TV 24-25 180 MCG/0.5 ML SYRINGE IM (14:35)
--- NOTE | 2024-01-23 15:05 | CASEMGMT ---
Social Work- Met with pt to complete initial assessment. Introduced self and role. Verified/updated contacts. Patient confirmed code status as full code. Pt , Fior, is HCPOA; SW requested pt/family provide copies of advanced directives.Pt?s goal is to return home with spouse. SW will continue to follow for DC planning. [facility] ?
--- NOTE | 2024-01-23 20:53 | HP.PCM_ITS ---
HPI - General General Date of Admission: 01/23/24 Date of Service: 01/23/24 Chief Complaint: Here for rehabilitation. HPI Narrative JUAN ANDREWS, is a 73 Male who presents with followin01/21/2024 Dr. Gamino performed left total hip arthroplasty. 01/22/2024 Left hip pain controlled with medications. PT/OT, WBAT. Eliquis 2.5mg bid x 35 days for dvt prophylaxis. 01/22/2024 Confusion, low grade fever. Confusion worsened. Decrease oxycodone to 5mg tid prn. WBC 11.8. Monitor confusion. 01/23/2024 Admit to TCU with debility, here for rehabilitation, strengthening, prior to dischage home with . [facility] Medical History (Updated 01/23/24 @ 20:[address] Russ Butcher MD) Wears hearing aid Wears glasses Walker as ambulation aid Arthritis High cholesterol Non-smoker Shortness of breath on exertion History of pain when walking History of echocardiogram History of stress test Hypertension Edema DVT (deep venous thrombosis) Home Medications ?Medication ?Instructions ?Recorded ?Last Taken ?Type hydrochlorothiazide 12.5 mg capsule 12.5 mg PO DAILY BP 06/19/23 01/20/24 History lisinopril 40 mg tablet 40 mg PO DAILY BP 06/19/23 01/21/24 06:30 History multivitamin 1 tab PO DAILY SUPPLEMENT 06/19/23 01/20/24 History atorvastatin 20 mg tablet 20 mg PO QDAY CHOLESTEROL 12/11/23 01/20/24 History acetaminophen 500 mg tablet 1,000 mg (2 x 500 mg) PO Q8 pain 01/23/24 Unknown Rx #100 tabs apixaban 2.5 mg tablet (Eliquis) 2.5 mg PO BID blood thinner 33 01/23/24 Unknown Rx days #66 tabs oxycodone 5 mg tablet 5 mg PO TID PRN Pain Score 4-10 7 01/23/24 Unknown Rx days #21 tabs Allergy/AdvReac Type Severity Reaction Status Date / Time oxycodone (From OxyIR) AdvReac Intermediate CONFUSION Verified 01/23/24 11:16 Surgical History (Updated 01/23/24 @ 20:[address] Russ Butcher MD) History of total left hip arthroplasty History of total right knee replacement History of total left knee replacement History of umbilical hernia repair History of total right hip arthroplasty Social History (Updated 01/23/24 @ 20:[address] Russ Butcher MD) household members: spouse Smoking Status: Never smoker alcohol intake: never do you feel safe at home: Yes ROS Constitutional Constitutional: Denies chills, fever(s) or weight gain ENT HEENT: Denies headache(s), nasal congestion or nasal discharge Cardiovascular Cardiovascular: Denies chest pain or palpitations Respiratory/Chest Respiratory/Chest: Denies cough, excessive phlegm production or shortness of breath with exertion Gastrointestinal Gastrointestinal: Denies abdominal pain, nausea or vomiting Genitourinary Genitourinary: Denies dysuria Musculoskeletal Musculoskeletal: Denies joint pain or joint swelling Integumentary Integumentary: Denies rash or wounds Neurologic Neurologic: Denies focal weakness, numbness or tingling Psychiatric Psychiatric: Denies anxiety, auditory hallucinations, depression, homicidal ideation or suicidal ideation Vital Signs Vital Signs Vital Signs: 01/23/24 10:58 01/23/24 11:33 Temperature 98.7 F Temperature Source Temporal Pulse Rate 86 85 Pulse Rhythm Regular Pulse Strength Normal (2+) Respiratory Rate 14 16 Respiratory Effort Normal Non-Labored Respiratory Depth Normal Respiratory Pattern Normal Blood Pressure 131/75 H Blood Pressure Mean 93 Blood Pressure Source Monitor Blood Pressure Position Sitting Blood Pressure Location Right Arm Pulse Ox 94 96 Oxygen Delivery Method Room Air Room Air Weight Weight: 117.299 kg Body Mass Index (BMI) 40.5 Physical Exam Const alert General Appearance: cooperative HEENT normocephalic Eyes PERRL and EOMs intact bilaterally Neck supple, no JVD and no carotid bruits Resp normal respiratory effort, normal air movement and clear to auscultation bilaterally Cardio regular rate and regular rhythm GI normal to inspection, nondistended, normoactive bowel sounds, non-tender and non-distended Extremity normal capillary refill General Extremity: Negative for edema Skin no rashes or lesions noted General Skin Exam: no breakdown Psych affect normal Appearance: appropriate Assessment & Plan Assessment/Plan (1) Debility: (2) Degenerative joint disease of left hip: QUALIFIERS: Osteoarthritis type: primary Qualified Code(s): M16 .12 - Unilateral primary osteoarthritis, left hip (3) S/P total left hip arthroplasty: (4) Acute encephalopathy: (5) Essential (primary) hypertension: (6) Edema: (7) DVT (deep venous thrombosis): PLAN: Plan 73 year old male with below past medical history hospitalized for left total hip arthroplasty 01/21/[address] Gamino, postoperative course complicated by acute encephalopathy, admitted to TCU with debility, here for rehabilitation, strengthening, prior to discharge home with . * Debility - PT/OT. * Pain - Tylenol 1000mg q8, Tramadol 50mg q6 prn pain (1-10). * Bowel - Miralax 17gm daily, senna/colace 1 tablet bid. * Adult immunization - Administer pneumonia vaccine, covid vaccine, flu vaccine as appropriate. * DVT prophylaxis - Eliquis 2.5mg bid thru 02/27/2024. * Hyperlipidemia - Atorvastatin 20mg qhs. * Hypertension - Lisinopril 40mg daily, HCTZ 12.5mg daily * Nutrition - MVI 1 tablet daily.
[2024-01-23] MEDS: APIXABAN 2.5 MG TABLET (WCH) PO (21:33)
[2024-01-23] MEDS: Atorvastatin Calcium 20 MG Tablet PO (21:33)
[2024-01-24] MEDS: Acetaminophen 500 MG Tablet 1000 MG PO ×3 (05:47→21:03)
[2024-01-24 06:06] LABS: Absolute Lymphocyte Count 1.53 X10^3/uL (0.83-4.51); Absolute Neutrophil Count 6.4 X10^3/uL (2.0-7.7); Basophil# 0.03 X10^3/uL; Basophil% 0.3 % (0-1); Eosinophil# 0.35 X10^3/uL; Eosinophils% 3.9 % (0-5); Hematocrit 34.2 % (40-54); Hemoglobin 10.9 g/dL (13.0-16.5); Lymphocyte # 1.53 X10^3/ul (0.83-4.51); Lymphocyte % 16.9 % (19-41); Mean Corp Hgb Conc 31.9 g/dL (32-36); Mean Corpuscular Hgb 29.3 pg (27.0-32.0); Mean Corpuscular Volume 91.9 fL (80-94); Mean Platelet Vol. 9.9 fl (6.2-12.0); Monocyte# 0.71 X10^3/uL; Monocyte% 7.9 % (0-10); NRBC Flagged by Analyzer 0 % (0-5); Neutrophil # 6.35 X10^3/uL (2.7-7.7); Neutrophil % 70.3 % (47-70); Platelet Count 182 K/mm3 (150-450); RBC Distribution Width CV 13.6 % (11.6-14.6); RBC Distribution Width SD 46.5 fl (35.1-43.9); Red Blood Count 3.72 M/mm3 (4.6-6.2)
[2024-01-24 06:36] LABS: Anion Gap 4 (5-15); BUN 9 mg/dL (7-18); BUN/Creat Ratio 14.2 RATIO (10-20); Calcium,Total 8.3 mg/dL (8.5-10.1); Chloride 109 mmol/L (98-107); Creatinine, Serum 0.64 mg/dL (0.70-1.30); EST Glomerular Filtration Rate 131 mL/min (>60); Est Glom Filt Rate - Afr Amer 159 mL/min (>60); Estimated Creatinine Clearance 102.21 ml/min; Glucose 115 mg/dL (74-106); Potassium 4.1 mmol/L (3.5-5.1); Sodium Level 139 mmol/L (136-145)
[2024-01-24] MEDS: Multivitamins,Therapeutic Tablet 1 TABLET PO (08:21)
[2024-01-24] MEDS: APIXABAN 2.5 MG TABLET (WCH) PO ×2 (09:54→21:03)
[2024-01-24] MEDS: hydroCHLOROthiazide 12.5mg 12.5 MG PO (09:54)
[2024-01-24] MEDS: Polyethylene Glycol 3350 17 GM PACKET PO (09:54)
[2024-01-24] MEDS: Senna/Docusate Sodium 1 Tablet PO ×2 (09:55→21:03)
[2024-01-24] MEDS: Lisinopril 40 MG Tablet PO (09:55)
--- NOTE | 2024-01-24 10:08 | NURSING ---
Banana Handler Note; Activity Asset: Baljeet Elizalde is independent in his choice of daily activities. Tonio has a smartphone he uses, word puzzles book and enjoys reading the newspaper and watching tv. His family will visit and bring him items he may need. He welcomes visits with the floor coverer apprentice and therapy dog when available. staff will remind him of weekly activities and respect his right to say no.
--- NOTE | 2024-01-24 11:41 | PHA.CONS_ITS ---
Documented by User: Yoko Dubose 01/24/24 11:47 TCU RX Drug Regimen Review Subjective/Objective Subjective/Objective: Subjective: TCU Admission. 73 YOM hospitalized for left total hip arthroplasty 01/21/[address] Gamino, postoperative course complicated by acute encep halopathy. Admitted to TCU with debility for strengthening and rehabilitation. Objective: Allergies oxycodone (From OxyIR) Adverse Reaction (Intermediate, Verified 01/23/24 11:16) CONFUSION Current Medications Generic Name Dose Route Start Last Admin Trade Name Freq PRN Reason Stop Dose Admin Acetaminophen 1,000 mg 01/23/24 14:00 01/24/24 05:47 Acetaminophen 500 Mg Tablet PO 1,000 mg Q8 RONAN Administration Apixaban 2.5 mg 01/23/24 22:00 01/24/24 09:54 Apixaban 2.5 Mg Tablet (h) PO 02/27/24 22:01 2.5 mg BID RONAN Administration Atorvastatin Calcium 20 mg 01/23/24 22:00 01/23/24 21:33 Atorvastatin Calcium 20 Mg Tablet PO 20 mg QHS RONAN Administration Hydrochlorothiazide 12.5 mg 01/24/24 10:00 01/24/24 09:54 Hydrochlorothiazide 12.5mg PO 12.5 mg DAILY RONAN Administration Protocol Lisinopril 40 mg 01/24/24 10:00 01/24/24 09:55 Lisinopril 40 Mg Tablet PO 40 mg DAILY RONAN Administration Protocol Multivitamins 1 tablet 01/24/24 08:00 01/24/24 08:21 Multivitamins,Therapeutic Tablet PO 1 tablet DAILYCM RONAN Administration Polyethylene Glycol 17 gm 01/24/24 10:00 01/24/24 09:54 Polyethylene Glycol 3350 17 Gm Packet PO 17 gm DAILY RONAN Administration Senna/Docusate Sodium 1 tablet 01/23/24 22:00 01/24/24 09:55 Senna/Docusate Sodium 1 Tablet PO 1 tablet BID RONAN Administration Sodium Chloride 10 - 40 ml 01/23/24 11:09 0.9% Saline Lock 10 Ml Syringe IV UD PRN SALINE FLUSH Tramadol HCl 50 mg 01/23/24 17:18 Tramadol 50 Mg Tablet PO Q6H PRN PRN Pain Score 1-10 or Pre PT/OT Tuberculin PPD 0.1 ml 01/31/24 10:00 Tuberculin,Purif.Prot.Deriv. 50 Tu/Ml Vial ID 01/31/24 10:01 X1 ONE Problem List DVT (deep venous thrombosis) (Acute) Edema (Acute) Essential (primary) hypertension (Acute) Acute encephalopathy (Acute) S/P total left hip arthroplasty (Acute) Debility (Acute) Degenerative joint disease of left hip (Acute) Vital Signs Temp Pulse Resp BP Pulse Ox O2 Del Method 98.7 F 85 16 131/75 H 96 Room Air 01/23/24 10:58 01/23/24 11:33 01/23/24 11:33 01/23/24 10:58 01/23/24 11:33 01/23/24 11:33 Oxygen Delivery Method Room Air Weight: 117.299 kg Body Mass Index (BMI) 40.5 Sodium 139 mmol/L (136-145) 01/24/24 05:39 Potassium 4.1 mmol/L (3.5-5.1) 01/24/24 05:39 Chloride 109 mmol/L (98-107) H 01/24/24 05:39 Carbon Dioxide 26.0 mmol/L (21.0-32.0) 01/24/24 05:39 Anion Gap 4 (5-15) L 01/24/24 05:39 BUN 9 mg/dL (7-18) 01/24/24 05:39 Creatinine 0.64 mg/dL (0.70-1.30) L 01/24/24 05:39 Est GFR (MDRD) Af Amer 159 mL/min (>60) 01/24/24 05:39 Est GFR (MDRD) Non-Af 131 mL/min (>60) 01/24/24 05:39 BUN/Creatinine Ratio 14.2 RATIO (10-20) 01/24/24 05:39 Glucose 115 mg/dL (74-106) H 01/24/24 05:39 Assessment/Plan: 1. Pain: acetaminophen 1000mg PO Q8 and tramadol 50mg PO Q6H PRN pain 1-10. Resident has not had any PRN doses. Please continue to monitor for increased pain and PRN usage. 2. Bowel: Miralax 17gm PO daily and senna/docusate 1T PO BID. Please continue to monitor for constipation. Last documented bowel movement (01/23/24). 3. DVT prophylaxis: apixaban 2.5mg PO BID thru 02/27/24. Please continue to monitor for S/S of bleeding/DVT and hemoglobin (last 10.9g/dL). 4. Hyperlipidemia: atorvastatin 20mg PO QHS. Please consider ordering a lipid panel as there is no panel in the chart. Thanks. Please continue to monitor for muscle pain. 5. Hypertension: lisinopril 40mg PO daily and hydrochlorothiazide 12.5mg PO daily. Please continue to monitor BP (last 131/75), cough, SCr (last 0.64mg/dL), potassium (last 4.1mmol/L) and sodium (last 139mmol/L). 6. Nutrition: multivitamin 1T PO daily. Please continue to monitor. Assessment/Plan for indications treated with psychotropic medications: None Medical chart and medication regimen reviewed. The following medication irregularities or issues were identified: 1. Atorvastatin 20mg PO QHS. Please consider ordering a lipid panel as there is no panel in the chart. Thanks. Date Date of Note:: 01/24/24 Documented by User: Dr. Russ Butcher MD 01/24/24 13:35 TCU RX Drug Regimen Review Provider Comments Provider responsibility Provider Comments to Recommendations by Pharmacy: Agree
[2024-01-24 11:59] VITALS: BP 132/81; PULSE 98; RESP 16; TEMP 36.3; O2SAT 94
[2024-01-24] MEDS: Tuberculin,Purif.prot.deriv. 50 TU/ML Vial 0.1 ML ID (11:59)
[2024-01-24 18:55] VITALS: PULSE 78; RESP 18; O2SAT 96
[2024-01-24] MEDS: Atorvastatin Calcium 20 MG Tablet PO (21:03)
[2024-01-25] MEDS: Acetaminophen 500 MG Tablet 1000 MG PO ×3 (05:50→21:59)
[2024-01-25 07:20] LABS: Cholesterol 92 mg/dL (200); High Density Lipoprotein 46 mg/dL; Triglycerides 61 mg/dL; Very Low Density Lipoprotein 12 mg/dL (5-40)
[2024-01-25] MEDS: Polyethylene Glycol 3350 17 GM PACKET PO (09:17)
[2024-01-25] MEDS: Lisinopril 40 MG Tablet PO (09:17)
[2024-01-25] MEDS: Multivitamins,Therapeutic Tablet 1 TABLET PO (09:17)
[2024-01-25] MEDS: Senna/Docusate Sodium 1 Tablet PO ×2 (09:17→21:58)
[2024-01-25] MEDS: APIXABAN 2.5 MG TABLET (WCH) PO ×2 (09:17→21:58)
[2024-01-25] MEDS: hydroCHLOROthiazide 12.5mg 12.5 MG PO (09:17)
[2024-01-25 09:43] VITALS: BP 156/79; PULSE 81
[2024-01-25 15:35] VITALS: BP 137/78; PULSE 97; RESP 16; TEMP 36.8; O2SAT 94
[2024-01-25] MEDS: Atorvastatin Calcium 20 MG Tablet PO (21:58)
[2024-01-26] MEDS: Acetaminophen 500 MG Tablet 1000 MG PO ×3 (06:21→21:03)
[2024-01-26] MEDS: Lisinopril 40 MG Tablet PO (08:31)
[2024-01-26] MEDS: Multivitamins,Therapeutic Tablet 1 TABLET PO (08:32)
[2024-01-26] MEDS: hydroCHLOROthiazide 12.5mg 12.5 MG PO (08:32)
[2024-01-26] MEDS: APIXABAN 2.5 MG TABLET (WCH) PO ×2 (08:32→21:02)
[2024-01-26 08:38] VITALS: BP 131/82; PULSE 87
[2024-01-26 14:01] VITALS: BP 136/80; PULSE 86; RESP 18; TEMP 36.6; O2SAT 96
[2024-01-26 20:00] VITALS: PULSE 94; RESP 16; O2SAT 97
--- NOTE | 2024-01-26 20:38 | NURSING ---
Dino RN reports swelling to LLE with patient report of hx DVT and requesting Doppler. Dr. Butcher contacted via telephone and notified of patient request. New order received for Doppler LLE on 01/27/24. Order repeated back
[2024-01-26] MEDS: Atorvastatin Calcium 20 MG Tablet PO (21:02)
[2024-01-26] MEDS: Senna/Docusate Sodium 1 Tablet PO (21:03)
[2024-01-27] MEDS: Acetaminophen 500 MG Tablet 1000 MG PO ×3 (05:22→21:51)
[2024-01-27 05:52] VITALS: PULSE 96; RESP 18; O2SAT 94
[2024-01-27] MEDS: Lisinopril 40 MG Tablet PO (08:47)
[2024-01-27] MEDS: hydroCHLOROthiazide 12.5mg 12.5 MG PO (08:47)
[2024-01-27] MEDS: APIXABAN 2.5 MG TABLET (WCH) PO (08:47)
[2024-01-27] MEDS: Multivitamins,Therapeutic Tablet 1 TABLET PO (08:47)
--- NOTE | 2024-01-27 11:12 | NURSING ---
Yolanda updated RN that patient does have an acute DVT. Said she can see old clot and new clot formation adhered to it. Updated Dr. Butcher, order to increase eliquis to 10mg BID x7 days. Then 5mg BID after that. Updated patient.
[2024-01-27 14:24] VITALS: BP 140/87; PULSE 85; RESP 16; TEMP 36.3; O2SAT 96
[2024-01-27] MEDS: Atorvastatin Calcium 20 MG Tablet PO (21:51)
[2024-01-27] MEDS: APIXABAN 5 MG TABLET 10 MG PO (21:51)
[2024-01-27] MEDS: traMADol 50 MG Tablet PO (21:51)
[2024-01-28] MEDS: Acetaminophen 500 MG Tablet 1000 MG PO ×3 (06:11→21:02)
[2024-01-28 08:17] VITALS: BP 129/72; PULSE 85; RESP 16; TEMP 36.3; O2SAT 98
[2024-01-28] MEDS: APIXABAN 5 MG TABLET 10 MG PO ×2 (08:19→21:02)
[2024-01-28] MEDS: Multivitamins,Therapeutic Tablet 1 TABLET PO (08:19)
[2024-01-28] MEDS: Lisinopril 40 MG Tablet PO (08:20)
[2024-01-28] MEDS: hydroCHLOROthiazide 12.5mg 12.5 MG PO (08:20)
[2024-01-28 08:53] VITALS: BMI 41.2
[2024-01-28] MEDS: COVID VAC 24-25 (12UP)(MODERNA)/PF 50 MCG/0.5 ML SYRINGE IM (17:07)
[2024-01-28 20:00] VITALS: PULSE 90; RESP 18; O2SAT 95
[2024-01-28] MEDS: Atorvastatin Calcium 20 MG Tablet PO (21:02)
[2024-01-29] MEDS: Acetaminophen 500 MG Tablet 1000 MG PO ×3 (05:42→20:30)
[2024-01-29 06:36] VITALS: PULSE 88; RESP 16; O2SAT 94
[2024-01-29] MEDS: APIXABAN 5 MG TABLET 10 MG PO ×2 (09:03→20:29)
[2024-01-29] MEDS: Lisinopril 40 MG Tablet PO (09:03)
[2024-01-29] MEDS: hydroCHLOROthiazide 12.5mg 12.5 MG PO (09:03)
[2024-01-29] MEDS: Multivitamins,Therapeutic Tablet 1 TABLET PO (09:03)
[2024-01-29 09:06] VITALS: BP 124/75; PULSE 97
--- NOTE | 2024-01-29 10:29 | CASEMGMT ---
Social Work IDT met with patient, and son for care plan meeting. Discussed patient's progress in PT/OT/SN. Educated to [facility] insurance with NRD 02/03, EDC 02/06. Pt is adlib in room and progressing well. SW offered if pt wishes to DC prior, he can choose to do that. SW to coordinate either skilled HHC or OP therapy and any DME needs. Pt prefers to go to [facility] at DC. Denies any DME needs. Pt and family want pt to remain for the time insurance approved to continue improving. SW will coordinate needs at DC. Will continue to follow. BLANCA GambleW
[2024-01-29 11:21] VITALS: BP 113/71; PULSE 90; RESP 18; TEMP 36.3; O2SAT 100
--- NOTE | 2024-01-29 14:41 | CASEMGMT ---
Social Work SW conducted BIMS () and PHQ-2 () completed for MDS assessment. Liss Molina MSW COSTUMING SUPERVISOR
[2024-01-29] MEDS: Atorvastatin Calcium 20 MG Tablet PO (20:29)
[2024-01-30] MEDS: Acetaminophen 500 MG Tablet 1000 MG PO ×3 (05:50→21:24)
[2024-01-30 06:44] VITALS: PULSE 86; RESP 18; O2SAT 98
[2024-01-30 09:49] VITALS: BP 116/69; PULSE 96; RESP 16; TEMP 36.4; O2SAT 94
[2024-01-30] MEDS: APIXABAN 5 MG TABLET 10 MG PO ×2 (09:52→21:23)
[2024-01-30] MEDS: Multivitamins,Therapeutic Tablet 1 TABLET PO (09:52)
[2024-01-30] MEDS: hydroCHLOROthiazide 12.5mg 12.5 MG PO (09:53)
[2024-01-30] MEDS: Lisinopril 40 MG Tablet PO (09:53)
[2024-01-30] MEDS: Atorvastatin Calcium 20 MG Tablet PO (21:24)
[2024-01-31] MEDS: Acetaminophen 500 MG Tablet 1000 MG PO ×3 (06:17→23:22)
[2024-01-31 06:22] LABS: Absolute Lymphocyte Count 1.52 X10^3/uL (0.83-4.51); Absolute Neutrophil Count 4.4 X10^3/uL (2.0-7.7); Basophil# 0.03 X10^3/uL; Basophil% 0.4 % (0-1); Eosinophil# 0.44 X10^3/uL; Eosinophils% 6.1 % (0-5); Hematocrit 30.6 % (40-54); Hemoglobin 9.7 g/dL (13.0-16.5); Lymphocyte # 1.52 X10^3/ul (0.83-4.51); Mean Corp Hgb Conc 31.7 g/dL (32-36); Mean Corpuscular Hgb 28.8 pg (27.0-32.0); Mean Corpuscular Volume 90.8 fL (80-94); Mean Platelet Vol. 8.6 fl (6.2-12.0); Monocyte# 0.75 X10^3/uL; Monocyte% 10.3 % (0-10); NRBC Flagged by Analyzer 0 % (0-5); Neutrophil % 60.7 % (47-70); Platelet Count 302 K/mm3 (150-450); RBC Distribution Width CV 13.6 % (11.6-14.6); RBC Distribution Width SD 45.7 fl (35.1-43.9); Red Blood Count 3.37 M/mm3 (4.6-6.2); White Blood Count 7.3 K/mm3 (4.4-11.0)
[2024-01-31 07:05] LABS: Anion Gap 8 (5-15); BUN 14 mg/dL (7-18); BUN/Creat Ratio 22.8 RATIO (10-20); Calcium,Total 8.2 mg/dL (8.5-10.1); Chloride 107 mmol/L (98-107); Creatinine, Serum 0.61 mg/dL (0.70-1.30); EST Glomerular Filtration Rate 137 mL/min (>60); Est Glom Filt Rate - Afr Amer 166 mL/min (>60); Glucose 97 mg/dL (74-106); Sodium Level 140 mmol/L (136-145)
--- NOTE | 2024-01-31 09:04 | NURSING ---
Amusement Equipment Operator Note; MDS for 01/30/2024 Complete
[2024-01-31] MEDS: Multivitamins,Therapeutic Tablet 1 TABLET PO (09:37)
[2024-01-31] MEDS: hydroCHLOROthiazide 12.5mg 12.5 MG PO (09:37)
[2024-01-31] MEDS: Lisinopril 40 MG Tablet PO (09:37)
[2024-01-31] MEDS: APIXABAN 5 MG TABLET 10 MG PO ×2 (09:37→23:24)
[2024-01-31] MEDS: Tuberculin,Purif.prot.deriv. 50 TU/ML Vial 0.1 ML ID (09:37)
[2024-01-31 09:54] VITALS: PULSE 94
[2024-01-31 16:00] VITALS: BP 111/63; PULSE 92; RESP 18; TEMP 36.5; O2SAT 93
[2024-01-31] MEDS: Atorvastatin Calcium 20 MG Tablet PO (23:23)
[2024-02-01] MEDS: Acetaminophen 500 MG Tablet 1000 MG PO ×3 (06:19→22:15)
[2024-02-01 07:09] LABS: Hemoglobin 10.5 g/dL (13.0-16.5)
[2024-02-01 08:37] VITALS: BP 133/80; PULSE 94; RESP 17; TEMP 36.8; O2SAT 94
[2024-02-01] MEDS: Multivitamins,Therapeutic Tablet 1 TABLET PO (08:41)
[2024-02-01] MEDS: APIXABAN 5 MG TABLET 10 MG PO ×2 (08:42→22:14)
[2024-02-01] MEDS: hydroCHLOROthiazide 12.5mg 12.5 MG PO (08:42)
[2024-02-01] MEDS: Lisinopril 40 MG Tablet PO (08:42)
--- NOTE | 2024-02-01 15:15 | NURSING ---
Patient and spouse called out to nurse to assess redness around surgical incision. Skin irritation noted with redness and small red bumps around incision. Incision healing without drainage. Patient denies increased pain to area. No signs or symptoms of infection to surgical incision. Will continue to monitor area. Encouraged patient to keep area clean and dry. Call light within reach.
[2024-02-01] MEDS: Atorvastatin Calcium 20 MG Tablet PO (22:15)
[2024-02-02] MEDS: Acetaminophen 500 MG Tablet 1000 MG PO ×3 (05:45→20:57)
[2024-02-02 08:10] VITALS: BP 126/74; PULSE 84; RESP 17; TEMP 36.6; O2SAT 95
[2024-02-02] MEDS: Multivitamins,Therapeutic Tablet 1 TABLET PO (08:13)
[2024-02-02] MEDS: APIXABAN 5 MG TABLET 10 MG PO ×2 (08:13→20:57)
[2024-02-02] MEDS: Lisinopril 40 MG Tablet PO (08:14)
[2024-02-02] MEDS: hydroCHLOROthiazide 12.5mg 12.5 MG PO (08:14)
[2024-02-02 20:55] VITALS: PULSE 88; O2SAT 95
[2024-02-02] MEDS: Atorvastatin Calcium 20 MG Tablet PO (20:57)
[2024-02-03] MEDS: traMADol 50 MG Tablet PO ×4 (02:07→22:15)
[2024-02-03] MEDS: Acetaminophen 500 MG Tablet 1000 MG PO ×3 (05:44→22:17)
[2024-02-03] MEDS: APIXABAN 5 MG TABLET 10 MG PO ×2 (08:34→22:17)
[2024-02-03] MEDS: Multivitamins,Therapeutic Tablet 1 TABLET PO (08:34)
[2024-02-03] MEDS: hydroCHLOROthiazide 12.5mg 12.5 MG PO (08:34)
[2024-02-03] MEDS: Lisinopril 40 MG Tablet PO (08:35)
[2024-02-03] MEDS: Senna/Docusate Sodium 1 Tablet PO ×2 (08:36→22:17)
[2024-02-03 08:38] VITALS: BP 120/75; PULSE 84
--- NOTE | 2024-02-03 12:29 | PN.ORTHO_ITS ---
Subjective Subjective Seen and examined. He states he is doing well of note he has developed a DVT in his left lower extremity since surgery. Denies any fevers chills nausea vomiting shortness of breath or chest pain. Objective Data Objective Data Vital Signs: Vital Signs Temp Pulse Resp BP Pulse Ox O2 Del Method 97.8 F 84 17 120/75 95 Room Air 02/02/24 08:10 02/03/24 08:38 02/02/24 08:10 02/03/24 08:38 02/02/24 20:55 02/02/24 20:55 Oxygen Delivery Method Room Air Weight: 263 lb 3.2 oz Body Mass Index (BMI) 41.2 Intake & Output: Intake and Output for Last 24 Hours 02/01/24 02/02/24 02/03/24 23:59 23:59 23:59 Intake Total 1200 / 1200 1000 / 1000 240 / 240 Balance 1200 / 1200 1000 / 1000 240 / 240 Lab / Micro Data 02/01/24 06:25 01/31/24 05:31 Physical Exam Const alert, oriented x3 and no apparent distress General Appearance: cooperative Extremity Extremity Narrative: Left hip incision well-approximated moreno in place there is erythema around the incision there is some folliculitis there is no drainage. He is neurovascular intact left lower extremity Assessment & Plan Assessment/Plan (1) S/P total left hip arthroplasty: (2) Left leg DVT: QUALIFIERS: Affected thrombotic vein of extremity: popliteal C hronicity: unspecified Qualified Code(s): I82.432 - Acute embolism and thrombosis of left popliteal vein (3) Cellulitis of hip, left: PLAN: Plan We will start Keflex 500 mg 4 times daily for the next 7 days as he has some cellulitis around the hip possibly related to the swelling from his left lower extremity DVT and surgery. Continue anticoagulation per primary Moreno to be removed discussed with nursing. Incision should be washed daily. If erythema worsens over the next week please notify me.
[2024-02-03 16:00] VITALS: BP 117/71; PULSE 90; RESP 16; TEMP 37.1; O2SAT 94
[2024-02-03] MEDS: Cephalexin 500 MG Capsule PO ×2 (18:10→23:44)
[2024-02-03 20:00] VITALS: O2SAT 95
[2024-02-03] MEDS: Atorvastatin Calcium 20 MG Tablet PO (22:17)
[2024-02-04] MEDS: Cephalexin 500 MG Capsule PO ×3 (06:27→17:51)
[2024-02-04] MEDS: Acetaminophen 500 MG Tablet 1000 MG PO ×3 (06:28→21:32)
[2024-02-04 08:01] VITALS: BP 123/80; PULSE 89; RESP 16; TEMP 36.6; O2SAT 93
[2024-02-04] MEDS: APIXABAN 5 MG TABLET PO ×2 (08:04→21:32)
[2024-02-04] MEDS: hydroCHLOROthiazide 12.5mg 12.5 MG PO (08:04)
[2024-02-04] MEDS: Multivitamins,Therapeutic Tablet 1 TABLET PO (08:04)
[2024-02-04] MEDS: Lisinopril 40 MG Tablet PO (08:04)
--- NOTE | 2024-02-04 08:10 | NURSING ---
washed hip incision with chlorahexadine wash per Dr Hanny gomez. area around incision red/rash noted. 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
[2024-02-04] MEDS: traMADol 50 MG Tablet PO ×2 (08:12→14:14)
[2024-02-04 10:00] VITALS: RESP 15; O2SAT 96
[2024-02-04 11:41] VITALS: BMI 41.3
--- NOTE | 2024-02-04 14:34 | CASEMGMT ---
Social Work Insurance issued LCD 02/05, DC 02/06. SW spoke with pt and at bedside. Both agreeable to DC. Confirmed [facility] PT and rollator at DC. and pt agreeable to $60 copay for rollator. to transport pt. SW to place referrals to [facility] [place]. Plan: DC home with 02/06, [facility], rollator BLANCA GambleW
--- NOTE | 2024-02-04 20:29 | PCM.DC.SUM ---
Providers Date of Admission: 01/23/24 Primary Care Physician: Dr. Osiel Garcia MD Reason For Visit: TOTAL HIP REPLACEMENT Diagnosis Discharge Diagnosis (1) S/P total left hip arthroplasty: Status: Acute Code(s): Z96.642 - Presence of left artificial hip joint (2) Left leg DVT: Status: Acute Code(s): I82.402 - Acute embolism and thrombosis of unspecified deep veins of left lower extremity Qualifiers: Affected thrombotic vein of extremity: popliteal Chronicity: unspecified Qualified Code(s): I82.432 - Acute embolism and thrombosis of left popliteal vein (3) Cellulitis of hip, left: Status: Acute Code(s): L03.116 - Cellulitis of left lower limb Plan 73 year old male with below past medical history hospitalized for left total hip arthroplasty 01/21/[address] Gamino, postoperative course complicated by acute encephalopathy, admitted to TCU with debility, here for rehabilitation, strengthening, prior to discharge home with . Debility - PT/OT. Pain - Tylenol 1000mg q8, Tramadol 50mg q6 prn pain (1-10). Bowel - Miralax 17gm daily, senna/colace 1 tablet bid. Adult immunization - Administer pneumonia vaccine, covid vaccine, flu vaccine as appropriate. DVT prophylaxis - Eliquis 2.5mg bid thru 02/27/2024. Hyperlipidemia - Atorvastatin 20mg qhs. Hypertension - Lisinopril 40mg daily, HCTZ 12.5mg daily Nutrition - MVI 1 tablet daily. Medications at Discharge Home Medications hydrochlorothiazide 12.5 mg capsule 12.5 mg PO DAILY BP 06/19/23 lisinopril 40 mg tablet 40 mg PO DAILY BP 06/19/23 multivitamin 1 tab PO DAILY SUPPLEMENT 06/19/23 atorvastatin 20 mg tablet 20 mg PO QDAY CHOLESTEROL 12/11/23 acetaminophen 500 mg tablet 1,000 mg (2 x 500 mg) PO Q8 #0 tabs 02/04/24 apixaban 5 mg tablet (Eliquis) 5 mg PO BID 30 days #60 tabs 02/04/24 cephalexin 500 mg capsule 500 mg PO Q6 3 days #12 caps 02/04/24 tramadol 50 mg tablet 50 mg PO Q6H PRN PRN Pain Score 1-10 Or Pre Pt/Ot 7 days #28 tabs 02/04/24 Hospital Course Operations total hip replacement (Left.) Procedures None Summary of Care Provided Minutes Spent on Discharge: 35 Hospital Course: 73 year old male with below past medical history hospitalized for left total hip arthroplasty 01/21/[address] Gamino, postoperative course complicated by acute encephalopathy, admitted to TCU with debility, here for rehabilitation, strengthening, prior to discharge home with . 01/27/2024 Doppler ultrasound showed acute on chronic left lower extremity DVT, treated with Eliquis 10mg bid x 7 days, then 5mg bid, will discharge on lobsterman Eliquis. 02/03/2024 Dr. Gamino treated left hip cellulitis Keflex 500mg q6 x 7 days, will discharge on Keflex for 3 more days. Discharge home with 02/07/2024, [employer] PT, Rollator. Rollator: Patient is unsafe with a cane and requires frequent rest breaks that can be resolved with use of a rollator for ambulation in the home and the community. Physical Exam Const alert General Appearance: cooperative HEENT normocephalic Eyes PERRL and EOMs intact bilaterally Neck supple, no JVD and no carotid bruits Resp normal respiratory effort, normal air movement and clear to auscultation bilaterally Cardio regular rate and regular rhythm GI normal to inspection, nondistended, normoactive bowel sounds, non-tender and non-distended Extremity normal capillary refill General Extremity: Negative for edema Skin no rashes or lesions noted General Skin Exam: no breakdown Psych affect normal Appearance: appropriate Weight / BMI Weight Weight: 119.567 kg Body Mass Index (BMI) 41.3 ABG / Lab / Microbiology Data 02/01/24 06:25 01/31/24 05:31 D/C Instructions Discharge Diet: No restrictions Discharge Activity: Return to Normal Activity, May Shower and Use Walker Weight Bearing Status: Weight bearing as tolerated Call your doctor if you observe: Fever of 101 or Higher, Inability to urinate, Inability to have a bowel movement, Shortness of breath, Dizziness, Fainting spells, Swelling in the ankles, Chest pain and Uncontrolled pain Additional Instructions: Discharge home with 02/07/2024, [employer] PT, Rollator. Rollator: Patient is unsafe with a cane and requires frequent rest breaks that can be resolved with use of a rollator for ambulation in the home and the community Please Follow Up With: Carlito Gamino DO When: As scheduled. Meaningful Use Info Meaningful Use Meaningful Use Diagnoses (Choose all that apply): None applicable Ischemic Stroke Statin Dosing Therapy Reference: STATIN DOSE THERAPY REFERENCE: * Patients > 75 years receive moderate or high dose statin therapy. * Patients 75 years or YOUNGER should receive HIGH intensity statin dose unless contraindicated. You will be required to document reason for non-treatment if statin daily dose does not meet guidelines. HIGH DOSE STATIN THERAPY DAILY Atorvastatin > than or = to 40 mg Rosuvastatin > than or = to 20 mg Amlodipine + Atorvastatin > than or = to 2.5/40 mg Ezetimibe + Simvastatin 10/80 mg Simvastatin 80mg Discharge Plan Admission Admit Date/Time: 01/23/24 10:49 Primary Reason for Your Visit: Debility. Attending Provider: Russ Butcher Chi Primary Care Provider: Osiel Garcia Instructions Additional Instructions / Restrictions: Discharge home with 02/07/2024, [employer] PT, Rollator. Rollator: Patient is unsafe with a cane and requires frequent rest breaks that can be resolved with use of a rollator for ambulation in the home and the community Discharge Orders/Prescriptions Prescriptions: New acetaminophen 500 mg Tablet 1,000 mg PO Q8 Qty: 0 0RF tramadol 50 mg Tablet 50 mg PO Q6H PRN PRN (Reason: Pain Score 1-10 Or Pre Pt/Ot) 7 Days Qty: 28 0RF cephalexin 500 mg Capsule 500 mg PO Q6 3 Days Qty: 12 0RF Eliquis 5 mg Tablet 5 mg PO BID 30 Days Qty: 60 0RF Continued lisinopril 40 mg tablet 40 mg PO DAILY Patient Comments: TAKE 1 TABLET BY MOUTH ONCE DAILY hydrochlorothiazide 12.5 mg capsule 12.5 mg PO DAILY Patient Comments: TAKE 1 CAPSULE BY MOUTH ONCE DAILY multivitamin Tablet 1 tab PO DAILY atorvastatin 20 mg tablet 20 mg PO QDAY Discontinued acetaminophen 500 mg Tablet 1,000 mg PO Q8 Qty: 100 0RF Eliquis 2.5 mg tablet 2.5 mg PO BID 33 Days Qty: 66 0RF oxycodone 5 mg Tablet 5 mg PO TID PRN (Reason: Pain Score 4-10) 7 Days Qty: 21 0RF Referrals / Follow Up: Osiel Garcia MD [Primary Care Provider] - Disposition Disposition (needs filled in before D/C Order can be placed): Home, Self Care
[2024-02-04] MEDS: Atorvastatin Calcium 20 MG Tablet PO (21:32)
[2024-02-05] MEDS: Cephalexin 500 MG Capsule PO ×5 (01:01→23:13)
[2024-02-05] MEDS: traMADol 50 MG Tablet PO ×4 (01:01→21:59)
[2024-02-05] MEDS: Acetaminophen 500 MG Tablet 1000 MG PO ×3 (05:40→21:54)
--- NOTE | 2024-02-05 07:34 | MDS.RN ---
Information for the MDS was obtained from review of the clinical record, interview of resident, staff, and direct observation of resident?s care.
[2024-02-05] MEDS: APIXABAN 5 MG TABLET PO ×2 (08:22→21:53)
[2024-02-05] MEDS: Multivitamins,Therapeutic Tablet 1 TABLET PO (08:22)
[2024-02-05] MEDS: Lisinopril 40 MG Tablet PO (08:23)
[2024-02-05] MEDS: hydroCHLOROthiazide 12.5mg 12.5 MG PO (08:23)
[2024-02-05 08:26] VITALS: BP 115/79; PULSE 87; RESP 18; TEMP 36.4; O2SAT 94
--- NOTE | 2024-02-05 14:48 | NURSING ---
Incisions washed with chlorahexadine per order, pt noted to have red pimples scattered around LT hip incision, this insurance writer feels it may be from attends. removed attends and placed stretch underwear with a peripad. agrees that this is part of the issue with his hip. moreno remain intact and order to be removed 02/06/24
--- NOTE | 2024-02-05 17:41 | NURSING ---
removed 6 moreno from lt abdominal fold & 20 from LT hip incision. pt requested them to be removed tonight, pt very nervous about it and stated he was not gonna be able to sleep if they were not removed tonight. incision well approximated. no drng noted. incisions washed w/chlorahexadine, rinsed and dried. rash much improved since removing attends earlier today. less red pimples noted to skin around hip incision
[2024-02-05 17:45] VITALS: PULSE 87; RESP 18; O2SAT 94
[2024-02-05] MEDS: Atorvastatin Calcium 20 MG Tablet PO (21:53)
[2024-02-06] MEDS: Cephalexin 500 MG Capsule PO ×3 (05:45→17:08)
[2024-02-06] MEDS: Acetaminophen 500 MG Tablet 1000 MG PO ×3 (05:45→21:34)
[2024-02-06] MEDS: traMADol 50 MG Tablet PO ×3 (05:50→21:33)
[2024-02-06 06:15] VITALS: PULSE 78; O2SAT 94
[2024-02-06] MEDS: hydroCHLOROthiazide 12.5mg 12.5 MG PO (10:14)
[2024-02-06] MEDS: Lisinopril 40 MG Tablet PO (10:15)
[2024-02-06] MEDS: APIXABAN 5 MG TABLET PO ×2 (10:15→21:34)
[2024-02-06] MEDS: Multivitamins,Therapeutic Tablet 1 TABLET PO (10:15)
[2024-02-06 10:17] VITALS: BP 123/74; PULSE 74; RESP 18; TEMP 36.6; O2SAT 93
--- NOTE | 2024-02-06 15:13 | MDS.RN ---
MDS pain interview complete
[2024-02-06] MEDS: Atorvastatin Calcium 20 MG Tablet PO (21:34)
[2024-02-07] MEDS: Cephalexin 500 MG Capsule PO ×3 (00:30→12:14)
[2024-02-07] MEDS: traMADol 50 MG Tablet PO (05:34)
[2024-02-07] MEDS: Acetaminophen 500 MG Tablet 1000 MG PO (05:34)
[2024-02-07 05:39] VITALS: PULSE 84; O2SAT 94
[2024-02-07 08:00] LABS: Absolute Neutrophil Count 4.1 X10^3/uL (2.0-7.7); Basophil# 0.04 X10^3/uL; Basophil% 0.6 % (0-1); Eosinophils% 6.2 % (0-5); Hematocrit 35.3 % (40-54); Hemoglobin 10.9 g/dL (13.0-16.5); Lymphocyte % 20.2 % (19-41); Mean Corp Hgb Conc 30.9 g/dL (32-36); Mean Corpuscular Hgb 28.2 pg (27.0-32.0); Mean Corpuscular Volume 91.5 fL (80-94); Mean Platelet Vol. 8.5 fl (6.2-12.0); Monocyte# 0.54 X10^3/uL; Monocyte% 8.4 % (0-10); NRBC Flagged by Analyzer 0 % (0-5); Neutrophil # 4.12 X10^3/uL (2.7-7.7); Neutrophil % 63.8 % (47-70); Platelet Count 361 K/mm3 (150-450); RBC Distribution Width CV 13.8 % (11.6-14.6); RBC Distribution Width SD 46.1 fl (35.1-43.9); Red Blood Count 3.86 M/mm3 (4.6-6.2); White Blood Count 6.5 K/mm3 (4.4-11.0)
[2024-02-07 08:23] LABS: Anion Gap 5 (5-15); BUN 11 mg/dL (7-18); BUN/Creat Ratio 15.4 RATIO (10-20); Calcium,Total 8.9 mg/dL (8.5-10.1); Chloride 106 mmol/L (98-107); Creatinine, Serum 0.71 mg/dL (0.70-1.30); EST Glomerular Filtration Rate 115 mL/min (>60); Est Glom Filt Rate - Afr Amer 139 mL/min (>60); Estimated Creatinine Clearance 103.28 ml/min; Glucose 97 mg/dL (74-106); Potassium 4.3 mmol/L (3.5-5.1); Sodium Level 139 mmol/L (136-145)
[2024-02-07 08:26] VITALS: BP 115/73; PULSE 82; RESP 17; TEMP 36.3; O2SAT 94
[2024-02-07] MEDS: APIXABAN 5 MG TABLET PO (08:30)
[2024-02-07] MEDS: Multivitamins,Therapeutic Tablet 1 TABLET PO (08:30)
[2024-02-07] MEDS: hydroCHLOROthiazide 12.5mg 12.5 MG PO (08:30)
[2024-02-07] MEDS: Lisinopril 40 MG Tablet PO (08:31)
--- NOTE | 2024-02-07 09:30 | NURSING ---
Rounded with patient to see how his stay has gone, he had a couple questions about DC. Asked about rollator, SW aware and working on getting him one. He also asked about wearing moe hose, said Dr. Gamino mentioned it but TCU staff was concerned about putting on because of blood clot. RN called and spoke with Dr. Gamino's nurse Veronique, who asked physician. Per Dr. Gamino its fine for resident to wear teds as long as they aren't too tight/cutting off circulation. Resident updated.
--- NOTE | 2024-02-07 10:54 | CASEMGMT ---
Social Work BIMS () and PHQ-2 () completed for MDS assessment. Liss Molina MSW [employer]
== END 2024-02-07 12:30 | disposition home or self-care (01) | DRG 560 ==
PROVIDERS: Admitting Provider Family Medicine Geriatric Medicine; PCP Family Medicine; Referring Provider Family Medicine Geriatric Medicine; Visit Provider Family Medicine Geriatric Medicine
DX: Z47.1 Aftercare following joint replacement surgery (principal); L03.116 Cellulitis of left lower limb; I82.432 Acute embolism and thrombosis of left popliteal vein; I10 Essential (primary) hypertension; E78.00 Pure hypercholesterolemia, unspecified; M16.12 Unilateral primary osteoarthritis, left hip; Z79.01 Long term (current) use of anticoagulants; Z96.642 Presence of left artificial hip joint; Z79.899 Other long term (current) drug therapy; Z23 Encounter for immunization
CPT/HCPCS: 36415; 80048; 80061; 85014; 85018; 85025; 90480; 90662; 91322; 97110; 97116; 97162; 97166; 97530; 97535; 97802

== ENCOUNTER → 2024-01-27 | Outpatient (CLI) | payer MEDICARE, SELFPAY ==
--- NOTE | 2024-01-27 09:28 | VDLE_ITS ---
Reason For Study: LLE Swelling Procedure LEFT This is a venous duplex using B-mode, color Lt CFV is partially compressible with bright flow and spectral Doppler. intraluminal echoes consistent with Chronic Exam performed portable in patient room. DVT A preliminary report was called and/or faxed Lt FV, Lt PopV, and Lt T/P Trunk are non to TCU RN. compressible with ACUTE on chronic DVT noted Lt GSV is partially compressible with bright intraluminal echoes consistent chronic SVT Difficult to visualize Lt calf veins due to swelling. PTV is compressible. LT PerV is compressible. VL/Venous Duplex US, Unilateral Interpretation Summary Acute on chronic deep vein thrombosis is noted in the left femoral vein, poplit eal vein, tibioperoneal trunk vein. Chronic deep vein thrombosis noted in the left common femoral vein. Chronic superficial vein thrombosis noted in the left great saphenous vein Ordering Physician: Russ Butcher Chi Referring Physician: Zechariah Garcia Performed By: Jessica Doll RDCS, RVT
== END | disposition home or self-care (01) ==
LOC: CVS 09:14
PROVIDERS: PCP Family Medicine; Visit Provider Family Medicine Geriatric Medicine
DX: R22.42 Localized swelling, mass and lump, left lower limb (principal); Z86.718 Personal history of other venous thrombosis and embolism
CPT/HCPCS: 93971

== ENCOUNTER → 2024-02-12 | Outpatient (CLI) | payer MEDICARE, SELFPAY ==
[2024-02-12 15:45] LABS: Absolute Lymphocyte Count 1.46 X10^3/uL (0.83-4.51); Absolute Neutrophil Count 4.1 X10^3/uL (2.0-7.7); Basophil# 0.04 X10^3/uL; Basophil% 0.6 % (0-1); Eosinophil# 0.35 X10^3/uL; Eosinophils% 5.4 % (0-5); Hematocrit 34.9 % (40-54); Hemoglobin 11.1 g/dL (13.0-16.5); Lymphocyte # 1.46 X10^3/ul (0.83-4.51); Lymphocyte % 22.4 % (19-41); Mean Corp Hgb Conc 31.8 g/dL (32-36); Mean Corpuscular Hgb 28.6 pg (27.0-32.0); Mean Corpuscular Volume 89.9 fL (80-94); Mean Platelet Vol. 8.8 fl (6.2-12.0); Monocyte# 0.57 X10^3/uL; Monocyte% 8.8 % (0-10); NRBC Flagged by Analyzer 0 % (0-5); Neutrophil # 4.06 X10^3/uL (2.7-7.7); Neutrophil % 62.3 % (47-70); Platelet Count 304 K/mm3 (150-450); RBC Distribution Width CV 14.1 % (11.6-14.6); RBC Distribution Width SD 45.3 fl (35.1-43.9); Red Blood Count 3.88 M/mm3 (4.6-6.2); White Blood Count 6.5 K/mm3 (4.4-11.0)
[2024-02-12 16:28] LABS: AST(SGOT) 19 U/L (15-37); Alanine Aminotransfer ALT/SGPT 25 U/L (16-61); Albumin, Serum 3.4 g/dL (3.2-5.0); Alkaline Phosphatase 83 U/L (45-117); Anion Gap 6 (5-15); BUN 13 mg/dL (7-18); BUN/Creat Ratio 18.5 RATIO (10-20); Calcium,Total 8.8 mg/dL (8.5-10.1); Chloride 107 mmol/L (98-107); Cholesterol 102 mg/dL (200); EST Glomerular Filtration Rate 117 mL/min (>60); Est Glom Filt Rate - Afr Amer 142 mL/min (>60); Globulin 3.3 g/dL (2.2-4.2); Glucose 117 mg/dL (74-106); High Density Lipoprotein 47 mg/dL; PSA,Total - Annual Screen 5.42 ng/mL (0.00-4.00); Potassium 3.8 mmol/L (3.5-5.1); Protein, Total 6.7 g/dL (6.4-8.2); Sodium Level 140 mmol/L (136-145); Triglycerides 101 mg/dL; Very Low Density Lipoprotein 20 mg/dL (5-40)
[2024-02-13 09:17] LABS: Hepatitis C Antibody Non-Reactive (Nonreactive)
== END | disposition home or self-care (01) ==
LOC: POLAB3 15:06
PROVIDERS: PCP Family Medicine Geriatric Medicine; Visit Provider Family Medicine Geriatric Medicine
DX: E78.5 Hyperlipidemia, unspecified (principal); I10 Essential (primary) hypertension; Z12.5 Encounter for screening for malignant neoplasm of prostate; Z13.89 Encounter for screening for other disorder
CPT/HCPCS: 36415; 80053; 80061; 84153; 84443; 85025; 86803; G0103

== ENCOUNTER 2024-03-24 11:00 | Outpatient (RCR) | payer MEDICARE, SELFPAY ==
--- NOTE | 2024-02-12 09:33 | HP.PTEVAL ---
Patient's Visit Information Visit Information Visit Information: JUAN ANDREWS is a 73 year old M referred to Physical Therapy by Dr. Russ Butcher MD with a diagnosis of L GUSTAVO, DOS: 01/21/24 posterior/lateral approach. Date of Evaluation: 02/11/24 Physical Therapist: Richard Boswell DPT Visit Plan Frequency: 1-2x /Week Duration: 6 Weeks Plan: L GUSTAVO with posterior/lateral approach. Be aware of precautions. 1) edema control, active mobility, IASTIM as needed for scar/soft tissue mobilization 2) ROM of L hip, HS stretching, hip flexor stretching. B 3) functional LE strengthening, gait progression to SPC then no AD is able Subjective Subjective: Pt. is here today for his initial evaluation with diagnosis of L GUSTAVO DOS: 01/21/24. Pt. reports overall doing well. Pt. was on TCU for a few weeks working on strengthening. Pt. lives with his . PMH: B TKA, B GUSTAVO. Pt. also had a DVT in his L leg as well. Pt. is having some burning in BLEs as well (feet mostly). Pt. got back home last week and has been doing well so far. He arrives with use of rollator with good tolerance. Pt. is hopeful to get back to working, leaning more towards being a greater like work. pt. is hopeful to reduce need for rollator. Prior to surgery he was using a standard walker as his L leg had been giving out on him. This has not happened since surgery. Pt. does report increased L LE swelling since DVT. He is hearing zip up compression stocking today. Pain L hip: Pain Intensity (Out of 10): 2 Pain Intensity Range: 0 and 5 Objective Objective: POSTURE: Pt. has slightly flexed posture in stance, tends to lean on AD. PALPATION: Pt. has well healing incision without signs of infection. ROM: L hip: flexion 90deg, HS is very tight bilaterally. L hip abd 45deg, Ext 5 deg. ER/IR not tested. MMT: RLE: Knee: ext 35#, flexion 35#,, hip: flexion 38.2# LLE: knee: ext 35.3#, flexion 27.0#, L hip: flexion 16.6# TU.1sec GAIT: pt. ambulates with rollator with good stability. He does have difficulty with getting upright, but was able to get there with VCing. STAIRS: Pt. able to complete with heavy use of BHR with reciprocal pattern. Pt. had increased difficutly with controlled descending. Balance/Special Test Scores 30 Second Chair Rise Test Seconds: 11 WOMAC Total Score: 49 WOMAC Percentatge: 48.9600 Goals Goal 1:: LTG: Pt. to be I with HEP for LE strengthening and stretching. Goal Time Frame: 4-6 Weeks Goal 2:: STG: Pt. to be able to get in/out of bed without external assistance. Goal Time Frame: 2 Weeks Goal 3:: STG: Pt. to be able to ambulate with SPC with good tolerance and normal stride length. Goal Time Frame: 2-4 Weeks Goal 4:: LTG: Pt. to be able to ambulate without AD with normalized gait pattern and less than 2/10 pain in L hip. Goal Time Frame: 6-8 Weeks Goal 5:: STG: Pt. to have decreased edema in LLE indicated by symmetrical girth measurements. Goal Time Frame: 2-4 Weeks Goal 6:: LTG: Pt. to complete TUG with time less than 10sec without use of AD indicating increased stability with functional mobility. Goal Time Frame: 4-6 Weeks Rehabilitation Potential Physical Therapy Diagnosis: Pt. has signs and symptoms consistent with L GUSTAVO. DOS: 01/21/24. Pt. has subsequent weakness, pain, hypomobility of L hip, and difficulty with walking. He would benefit from PT to address the above limitations progressing back to all previous levels of activities. Rehabilitation Potential: Excellent Anticipated Interventions Patient/Client Instruction: Educate patient on: Condition, Plan of Care, Risk Factors and Benefits of Fitness Program For the Purpose of:: To improve health and function, To foster healthy habits, To improve decision making, To facilitate caregiver knowledge, To improve self management, To prevent re-injury and To improve ability to perform tasks related to life management Therapeutic Exercise to Include: Strength training, Endurance training, Balance training, Coordination, Body mechanics, Postural training, Flexibilty training, Gait and locomotor training, Passive ROM, Active ROM and Dynamic Lumbar Stabilization For the Purpose of:: To decrease pain, To increase ROM, To improve nutrient delivery to tissue, To increase oxygenation perfusion, To improve muscle performance and motor function, To improve ability to perform ADL's, To increase tolerance to activity/condition/position, To improve gait and locomotor functions, To improve health of tissue, To decrease soft tissue restriction and To increase flexibility/ROM Manual Therapy Techniques to Include: Passive ROM and Soft tissue mobilization Comment: IASTIM For the Purpose of:: To decrease pain, To increase ROM, To improve nutrient delivery to tissue and To increase oxygenation perfusion Text: Thank you for the opportunity to evaluate your patient. For Medicare and Medicare HMO plans, please review the plan of care and approve it. It will need to be FAXED BACK to us at [phone] for Medicare purposes. For Medicare only, by signing this I certify the plan of care. Please let me know if there are questions or concerns regarding this plan of care. Physician Signature: Date:
--- NOTE | 2024-03-24 17:09 | HP.PTREVAL_ITS ---
Re-Evaluation Intro: Dr. Russ Butcher MD, It has been my pleasure to treat JUAN ANDREWS over the last 10 visits for L GUSTAVO, DOS: 01/21/24 posterior/lateral approach. Please see the progress note below for an update on the physical therapy plan of care! Subjective Subjective: Pt. reports being 80% better overall. No pain reported. Pt. reports being HEP compliant. Objective Objective/Function: TU.1sec ROM: L hip flexion 100deg, abd 45deg, ext 10deg. MMT: RLE: knee: ext 41.#, flexion 23.7#; hip flexion 29.1#, abd 18.9# LLE: knee ext: 39.0#, flexion 23.9#; hip flexion 24.8#, and 19.7# gait: pt. has fairly normal gait pattern, but does have decreased step length and methodical pattern. STAIRS: Pt. is able to complete with reciprocal pattern, but has marked weakness with loading of LLE during ascending and descending. Overall Juan has improved a lot. I would like him to be more I with a gym strengthening program in order to further progress his strength allowing for improved functional mobility. Plan Plan Plan: I am asking for 4 more visits to progress gym program to I in order to increase patient carry over. I think with a bit more consistent stregthening he will do very well. Balance/Gait/Functional tests Balance/Special Test Scores Tug Test: <20 sec.=mostly independent 30 Second Chair Rise Test Seconds: 12 WOMAC Total Score: 10 WOMAC Percentage: 89.5900 Goals Goals Goal 1:: LTG: Pt. to be I with HEP for LE strengthening and stretching. Goal Time Frame: 4-6 Weeks Goal Progress: Progressing Goal 2:: STG: Pt. to be able to get in/out of bed without external assistance. (NEW GOAL: Pt. to negotiate 1 flight of stairs with 1 HR with out signs of functional weakness.) Goal Time Frame: 2 Weeks Goal Progress: Progressing Goal 3:: STG: Pt. to be able to ambulate with SPC with good tolerance and normal stride length. Goal Time Frame: 2-4 Weeks Goal Progress: Goal Met Goal 4:: LTG: Pt. to be able to ambulate without AD with normalized gait pattern and less than 2/10 pain in L hip. Goal Time Frame: 6-8 Weeks Goal Progress: Goal Met Goal 5:: STG: Pt. to have decreased edema in LLE indicated by symmetrical girth measurements. Goal Time Frame: 2-4 Weeks Goal Progress: Goal Met Goal 6:: LTG: Pt. to complete TUG with time less than 10sec without use of AD indicating increased stability with functional mobility. Goal Time Frame: 4-6 Weeks Goal Progress: Progressing Anticipated Interventions Anticipated Interventions Patient/Client Instruction: Educate patient on: Condition, Plan of Care, Risk Factors and Benefits of Fitness Program For the Purpose of:: To improve health and function, To foster healthy habits, To improve decision making, To facilitate caregiver knowledge, To improve self management, To prevent re-injury and To improve ability to perform tasks related to life management Therapeutic Exercise to Include: Strength training, Endurance training, Balance training, Coordination, Body mechanics, Postural training, Flexibilty training, Gait and locomotor training, Passive ROM, Active ROM and Dynamic Lumbar Stabilization For the Purpose of:: To decrease pain, To increase ROM, To improve nutrient delivery to tissue, To increase oxygenation perfusion, To improve muscle performance and motor function, To improve ability to perform ADL's, To increase tolerance to activity/condition/position, To improve gait and locomotor functions, To improve health of tissue, To decrease soft tissue restriction and To increase flexibility/ROM Manual Therapy Techniques to Include: Passive ROM and Soft tissue mobilization Comment: IASTIM For the Purpose of:: To decrease pain, To increase ROM, To improve nutrient delivery to tissue and To increase oxygenation perfusion Re-Evaluation Ending Re-evaluation ending: Please do not hesitate to contact me at [phone] by phone or Fax: if you have questions or concerns regarding this new plan of care! Sincerely, Richard Boswell DPT
--- NOTE | 2024-05-12 08:23 | HP.PT.NRP ---
Patient Information Patient Information: JUAN ANDREWS was seen in my office for initial evaluation on 02/11/24. The following Plan of Care was established for this patient: POC Established Initial Frequency: 1-2x /Week Initial Duration: 6 Weeks Anticipated Interventions Patient/Client Instruction: Educate patient on: Condition, Plan of Care, Risk Factors and Benefits of Fitness Program For the Purpose of:: To improve health and function, To foster healthy habits, To improve decision making, To facilitate caregiver knowledge, To improve self management, To prevent re-injury and To improve ability to perform tasks related to life management Therapeutic Exercise to Include: Strength training, Endurance training, Balance training, Coordination, Body mechanics, Postural training, Flexibilty training, Gait and locomotor training, Passive ROM, Active ROM and Dynamic Lumbar Stabilization For the Purpose of:: To decrease pain, To increase ROM, To improve nutrient delivery to tissue, To increase oxygenation perfusion, To improve muscle performance and motor function, To improve ability to perform ADL's, To increase tolerance to activity/condition/position, To improve gait and locomotor functions, To improve health of tissue, To decrease soft tissue restriction and To increase flexibility/ROM Manual Therapy Techniques to Include: Passive ROM and Soft tissue mobilization Comment: IASTIM For the Purpose of:: To decrease pain, To increase ROM, To improve nutrient delivery to tissue and To increase oxygenation perfusion Last Seen Last Seen: This patient was last seen in our office 03/24/24. Pertinent comments regarding their Physical therapy will appear below: Pt. was treated in PT for his GUSTAVO. Pt. was doing well at his last appointment. I asked fore more visits, but patient has yet return to PT and will be DC from PT at this point in time. At this point I will be discontinuing this patient from physical therapy. I would be happy to see this patient again in the future if found appropriate by the physician. Thank you! Richard Boswell, DPT Balance/Gait/Functional tests Balance/Special Test Scores Tug Test: <20 sec.=mostly independent 30 Second Chair Rise Test Seconds: 12 WOMAC Total Score: 10 WOMAC Percentage: 89.5900
== END 2024-03-24 19:00 | disposition home or self-care (01) ==
LOC: PT 11:00
PROVIDERS: PCP Family Medicine Geriatric Medicine; Referring Provider Family Medicine Geriatric Medicine; Visit Provider Family Medicine Geriatric Medicine
DX: Z96.642 Presence of left artificial hip joint (principal); R53.81 Other malaise
CPT/HCPCS: 97110; 97116; 97161; 97530

== ENCOUNTER → 2024-08-12 | Outpatient (CLI) | payer MEDICARE, SELFPAY ==
[2024-08-12 12:48] LABS: Absolute Lymphocyte Count 1.68 X10^3/uL (0.83-4.51); Absolute Neutrophil Count 5.1 X10^3/uL (2.0-7.7); Basophil# 0.03 X10^3/uL; Basophil% 0.4 % (0-1); Eosinophil# 0.45 X10^3/uL; Eosinophils% 5.7 % (0-5); Hematocrit 43.1 % (40-54); Hemoglobin 14.1 g/dL (13.0-16.5); Lymphocyte # 1.68 X10^3/ul (0.83-4.51); Lymphocyte % 21.2 % (19-41); Mean Corp Hgb Conc 32.7 g/dL (32-36); Mean Corpuscular Hgb 28.6 pg (27.0-32.0); Mean Corpuscular Volume 87.4 fL (80-94); Mean Platelet Vol. 9.4 fl (6.2-12.0); Monocyte# 0.62 X10^3/uL; Monocyte% 7.8 % (0-10); NRBC Flagged by Analyzer 0 % (0-5); Neutrophil # 5.11 X10^3/uL (2.7-7.7); Neutrophil % 64.5 % (47-70); Platelet Count 254 K/mm3 (150-450); RBC Distribution Width CV 14.7 % (11.6-14.6); Red Blood Count 4.93 M/mm3 (4.6-6.2); White Blood Count 7.9 K/mm3 (4.4-11.0)
[2024-08-12 14:00] LABS: ALB/GLOB Ratio 1.4 RATIO (0.9-2.4); AST(SGOT) 20 U/L (<=37); Alanine Aminotransfer ALT/SGPT 16 U/L (<=46); Albumin, Serum 4.2 g/dL (3.4-4.8); Alkaline Phosphatase 81 U/L (40-129); Anion Gap 12 (5-15); BUN 23 mg/dL (4-19); BUN/Creat Ratio 32.3 RATIO (10-20); Calcium,Total 9.1 mg/dL (7.6-11.0); Carbon Dioxide 22.6 mmol/L (21.0-32.0); Chloride 106 mmol/L (98-108); Creatinine, Serum 0.71 mg/dL (0.70-1.20); EST Glomerular Filtration Rate 97 (>60); Globulin 2.9 g/dL (2.2-4.2); Glucose 93 mg/dL (70-99); Potassium 4.2 mmol/L (3.3-5.1); Protein, Total 7.1 g/dL (5.9-8.4); Sodium Level 140 mmol/L (133-145); Total Bilirubin 0.42 mg/dL (0.00-1.30); Vitamin D,25 Hydroxy 23.2 ng/mL (30-100)
== END | disposition home or self-care (01) ==
LOC: LAB 12:00
PROVIDERS: PCP Family Medicine Geriatric Medicine; Referring Provider Family Medicine Geriatric Medicine; Visit Provider Nurse Practitioner
DX: I10 Essential (primary) hypertension (principal); E55.9 Vitamin D deficiency, unspecified; R97.20 Elevated prostate specific antigen [PSA]
CPT/HCPCS: 36415; 80053; 82306; 84153; 84443; 85025

== ENCOUNTER → 2024-09-16 | Outpatient (CLI) | payer MEDICARE, SELFPAY | END | disposition home or self-care (01) | LOC: LABSPEC 17:10 | PROVIDERS: PCP Family Medicine Geriatric Medicine; Visit Provider Family Medicine Geriatric Medicine | DX: R05.9 Cough, unspecified (principal); R06.2 Wheezing | CPT/HCPCS: 87631 ==

== ENCOUNTER → 2025-01-20 | Outpatient (CLI) | payer MEDICARE, SELFPAY | END | disposition home or self-care (01) | LOC: POLAB3 11:00 | PROVIDERS: PCP Family Medicine Geriatric Medicine; Visit Provider Family Medicine Geriatric Medicine | DX: R68.83 Chills (without fever) (principal) | CPT/HCPCS: 87631 ==

== ENCOUNTER → 2025-02-17 | Outpatient (CLI) | payer MEDICARE, SELFPAY ==
[2025-02-17 11:11] LABS: Hematocrit 42.9 % (40-54); Hemoglobin 14.0 g/dL (13.0-16.5); Immature Granulocytes Count 0.020 X10^3/uL (0.0-0.0); Mean Corp Hgb Conc 32.6 g/dL (32-36); Mean Corpuscular Volume 89.7 fL (80-94); Mean Platelet Vol. 9.9 fl (6.2-12.0); NRBC Flagged by Analyzer 0 % (0-5); Platelet Count 210 K/mm3 (150-450); RBC Distribution Width CV 13.8 % (11.6-14.6); RBC Distribution Width SD 45.0 fl (35.1-43.9); Red Blood Count 4.78 M/mm3 (4.6-6.2); White Blood Count 6.0 K/mm3 (4.4-11.0)
[2025-02-17 12:17] LABS: Vitamin D,25 Hydroxy 28.5 ng/mL (30-100)
[2025-02-17 12:18] LABS: AST(SGOT) 28 U/L (<=37); Alanine Aminotransfer ALT/SGPT 21 U/L (<=46); Albumin, Serum 4.1 g/dL (3.4-4.8); Alkaline Phosphatase 76 U/L (40-129); Anion Gap 11 (5-15); BUN 19 mg/dL (4-19); BUN/Creat Ratio 25.9 RATIO (10-20); Calcium,Total 8.6 mg/dL (7.6-11.0); Carbon Dioxide 23.0 mmol/L (21.0-32.0); Chloride 106 mmol/L (98-108); Globulin 2.4 g/dL (2.2-4.2); Glucose 91 mg/dL (70-99); Potassium 4.4 mmol/L (3.3-5.1)
[2025-02-17 18:55] LABS: Xtra Tube Kwok EXTRA TUBE
== END | disposition home or self-care (01) ==
LOC: POLAB3 10:55
PROVIDERS: PCP Family Medicine Geriatric Medicine; Visit Provider Family Medicine Geriatric Medicine
DX: I10 Essential (primary) hypertension (principal); E55.9 Vitamin D deficiency, unspecified
CPT/HCPCS: 36415; 80053; 82306; 84443; 85025